=== PATIENT | female | born 1975 | race American Indian/Alaskan Native ===

== ENCOUNTER 2017-04-28 18:44 | Emergency (ER) | payer OTHER ==
[~2017-04-28] VITALS: Ht 154.9 cm; Wt 72.6 kg
[~2017-04-28 18:44] MED LIST: AMLODIPINE BESY10 MG PO; BUPROPION XL150 MG PO; HYDROCHLOROTH12.5 MG PO; HYDROCODON-ACE1 EA10 PO; LOSARTAN POTASS25 MG PO; PERCOCET 7.5-31 EACH; PROPRANOLOL HCL20 MG PO
[2017-04-28] MEDS ORDERED: CELEXA20 MG PO (19:43)
== END 2017-04-28 20:46 | disposition home or self-care (01) ==
LOC: ED 18:44
DX: R51 Headache (principal); I10 Essential (primary) hypertension; Z98.51 Tubal ligation status; Z79.899 Other long term (current) drug therapy
CPT/HCPCS: 96374; 96375; 99282; J1200; J1885; J2765

== ENCOUNTER 2017-09-14 12:08 | Emergency (ER) | payer OTHER ==
[~2017-09-14] VITALS: Ht 154.9 cm; Wt 72.6 kg
[~2017-09-14 12:08] MED LIST changes: +CELEXA20 MG PO
[2017-09-14] MEDS ORDERED: NORCO 10-325 T1 EACH PO (14:09)
--- NOTE | 2017-09-14 19:34 | EKG ---
[facility] [address] [facility] [place] [address] Signed Normal sinus rhythm Normal ECG No previous ECGs available Confirmed by ELIS SEARS MD ([id number]) on 09/14/2017 7:33:53 PM Electronically Signed By: ELIS SEARS MD 09/14/17 1934 PATIENT NAME: JAQUELIN BUCKLEY CHLOÉ Electrocardiogram DATE OF : 79 PHYSICIAN: ELIS SEARS MD REPORT #: [id number] REPORT IS CONFIDENTIAL AND NOT TO BE RELEASED WITHOUT AUTHORIZATION
== END 2017-09-14 14:15 | disposition home or self-care (01) ==
LOC: ED 12:08
DX: S09.90XA Unspecified injury of head, initial encounter (principal); S20.212A Contusion of left front wall of thorax, initial encounter; S20.211A Contusion of right front wall of thorax, initial encounter; I10 Essential (primary) hypertension; G43.909 Migraine, unspecified, not intractable, without status migrainosus; Z79.899 Other long term (current) drug therapy; W22.8XXA Striking against or struck by other objects, initial encounter
CPT/HCPCS: 36415; 70450; 70486; 71111; 80048; 81001; 84703; 85025; 93005; 93010; 99284

== ENCOUNTER 2018-05-18 07:58 | Emergency (ER) | payer OTHER ==
[~2018-05-18] VITALS: Ht 154.9 cm; Wt 72.6 kg
--- OUTSIDE RECORDS SUMMARY | ~2018-05-18 | XMS | Encounter Summary ---
Demographics + + + | Address | [address] [place] [address] | | | [place] [address] | + + + | Home Phone | | + + + | Preferred Language | Unknown | + + + | Marital Status | | + + + | Gnosticist Affiliation | Unknown | + + + | Race | Unknown | + + + | Ethnic Group | Unknown | + + + Author + + + | Author | [facility] | | | and [place] | + + + | Organization | [facility] | | | and [place] | [...] Team Providers + +------+ + | Care Investment Advisor Name | Role | Phone | + +------+ + | Jed Pepper DO | PCP | | + +------+ + Reason for Visit + + + | Reason | Comments | + + + | Medication Question | | + + + Encounter Details +--------+ + + + + | Date | Type | Department | Care Team | Description | +--------+ + + + + | 05/01/ | Telephone | [facility] [place] | Darinel[place]amila, | Medication Question | | 2017 | | [address]YSIATRY [address] | [address] Peck [address] | | | | | [place], | [address] [place] | | | | | [place] [address] | [place] [address] | | | | | [phone] | [phone] | | | | | | | [...] on file | | + + + as of this encounter Plan of Treatment +--------+ + + + + | Date | Type | Specialty | Care Team | Description | +--------+ + + + + | 05/20/ | Appointment | Radiology | Bogdanowicz, | | | 2017 | | | [address] | | | | | | [address] [place] | | | | | | [place] [address] | | | | | | [phone] | | | | | | | | | | | | Media ExecutiveTami | | +--------+ + + + + as of this encounter Visit Diagnoses Not on filein this encounter"
--- OUTSIDE RECORDS SUMMARY | ~2018-05-18 | XMS | Encounter Summary ---
Demographics + + + | Address | [address] [place] [address] | | | [place] [address] | + + + | Home Phone | | + + + | Preferred Language | Unknown | + + + | Marital Status | | + + + | Anabaptist Affiliation | Unknown | + + + | Race | Unknown | + + + | Ethnic Group | Unknown | + + + Author + + + | Author | [facility] | | | and [place] | + + + | Organization | [facility] | | | and [place] [...] Team Providers + +------+ + | Care Weigher Alloy Name | Role | Phone | + +------+ + | Jed Pepper DO | PCP | | + +------+ + Encounter Details +--------+ + + + + | Date | Type | Department | Care Team | Description | +--------+ + + + + | 03/29/ | Abstract | [facility] [place] | Serge Auguste MD | Minor depressive | | 2018 | | OTOLARYNGOLOGY [address] | [address] [place] | disorder; Benign | | | | [address] | [address] [place], | essential | | | | [place], [place] | [place] [address] | hypertension; | | | | [address] | [phone] | Anxiety; Post | | | | [phone] | | traumatic stress | | | | | | disorder; | | | | | | Temporomandibular | | | | | | joint disorder; | | | | | | Gastroesophageal | | | | | | reflux disease, | | | | | | esophagitis presence | | | | | | not specified; | | | | | | Primary | | | | | | hypertriglyceridemia | | | | | | ; Migraine variant | | | | | | with headache; Sore | | | | | | throat, chronic; | | | | | | Dermatitis; Breast | | | | | | lump on right side | | | | | | at 7 o'clock | | | | | | position; Abdominal | | | | | | pain, unspecified | | | | | | abdominal location; | | | | | | Anemia, unspecified | | | | | | type | +--------+ + + + + Social History + +-------+ +--------+------+ | Tobacco Use | Types | Packs/Day | Years | Date | | | | | Used | | + +-------+ +--------+------+ | Never Assessed | | | | | + +-------+ [...] + + + as of this encounter Last Filed Vital Signs + + + + | Vital Sign | Reading | Time Taken | + + + + | Blood Pressure | 120/81 | 03/29/20181108 PDT | + + + + | Pulse | 85 | 03/29/20181108 PDT | + + + + | Temperature | 36.7 C (98 F) | 03/29/20181108 PDT | + + + + | Respiratory Rate | 16 | 03/29/20181108 PDT | + + + + | Oxygen Saturation | 99% | 03/29/20181108 PDT | + + + + | Inhaled Oxygen | - | - | | Concentration | | | + + + + | Weight | 75.9 kg (167 lb 5.6 | 03/29/20181108 PDT | | | oz) | | + + + + | Height | 154.9 cm (5' 1") | 03/29/20181108 PDT | + + + + | Body Mass Index | 31.62 | 03/29/20181108 PDT | + + + + in this encounter Plan of Treatment +--------+ + + + + | Date | Type | Specialty | Care Team | Description | +--------+ + + + + | 05/20/ | Appointment | Radiology | German, | | | 2017 | | | [address] | | | | | | [address] [place] | | | | | | [place] [address] | | | | | | [phone] | | | | | | | | | | | | Oil ExtractorTami | | +--------+ + + + + as of this encounter Visit Diagnoses + + | Diagnosis | + + | Minor depressive disorder | + + | Depressive disorder, not elsewhere classified | + + | Benign essential hypertension | + + | Essential hypertension, benign | + + | Anxiety | + + | Anxiety state, unspecified | + + | Post traumatic stress disorder | + + | Posttraumatic stress disorder | + + | Temporomandibular joint disorder | + + | Temporomandibular joint disorders, unspecified | + + | Gastroesophageal reflux disease, esophagitis presence not specified | + + | Primary hypertriglyceridemia | + + | Pure hyperglyceridemia | + + | Migraine variant with headache | + + | Sore throat, chronic | + + | Chronic pharyngitis | + + | Dermatitis | + + | Contact dermatitis and other eczema, due to unspecified cause | + + | Breast lump on right side at 7 o'clock position | + + | Lump or mass in breast | + + | Abdominal pain, unspecified abdominal location | + + | Anemia, unspecified type | + + | Menstrual disorder | + + | Unspecified disorder of menstruation and other abnormal bleeding from female genital | | tract | + + | Perforation of right tympanic membrane | + + | Perforation of tympanic membrane, unspecified | + +
--- OUTSIDE RECORDS SUMMARY | ~2018-05-18 | XMS | Encounter Summary ---
Demographics + + + | Address | [address] [place] [address] | | | [place] [address] | + + + | Home Phone | | + + + | Preferred Language | Unknown | + + + | Marital Status | | + + + | Jew Affiliation | Unknown | + + + | Race | Unknown | + + + | Ethnic Group | Unknown | + + + Author + + + | Author | [facility] | | | and [place] | + + + | Organization | [facility] | | | and [place] [...] Team Providers + +------+ + | Care Freight Broker Name | Role | Phone | + +------+ + | Jed Pepper DO | PCP | | + +------+ + Encounter Details +--------+ + + + + | Date | Type | Department | Care Team | Description | +--------+ + + + + | 04/24/ | Ancillary | [facility] | Provider, | | | 2018 | Orders | [facility] | MD [address] | | | | | IMAGING | [place] | | | | | [phone] | [place] [address] | | +--------+ + + + + [...] [address] | | | | | | [address] | | | | | | [place] [address] | | | | | | [phone] | | | | | | | | | | | | Internal Audit DirectorTami | | +--------+ + + + + as of this encounter Results MRI Lumbar Spine wo Contrast (02/25/2018 1205) + + + | Narrative | Performed At | + + + | External films for comparison only | [facility] | | | | | No results will be in the chart. | | + + + + +---------+ + + | Performing | Address | City/State/Zipcode | Phone Number | | Organization | | | | + +---------+ + + | [facility] | | | | + +---------+ + + in this encounter Visit Diagnoses Not on filein this encounter"
--- OUTSIDE RECORDS SUMMARY | ~2018-05-18 | XMS | Encounter Summary ---
Demographics + + + | Address | [address] [place] [address] | | | [place] [address] | + + + | Home Phone | | + + + | Preferred Language | Unknown | + + + | Marital Status | | + + + | Lutheran Affiliation | Unknown | + + + | Race | Unknown | + + + | Ethnic Group | Unknown | + + + Author + + + | Author | [facility] | | | and [place] | + + + | Organization | [facility] | | | and [place] [...] Team Providers + +------+ + | Care Linux System Admin Name | Role | Phone | + +------+ + | Jed Pepper DO | PCP | | + +------+ + Encounter Details +--------+ + + + + | Date | Type | Department | Care Team | Description | +--------+ + + + + | 03/28/ | Abstract | [facility] | [place], | | | 2017 | | [address]YSIATRY [address] | [address] | | | | | [place], | [address] [place] | | | | | [place] [address] | [place] [address] | | | | | [phone] | [phone] | | | | | | | [...] | | | | | [address] [place] | | | | | | [place] [address] | | | | | | [phone] | | | | | | | | | | | | Economic Development DirectorTami | | +--------+ + + + + as of this encounter Visit Diagnoses Not on filein this encounter"
--- OUTSIDE RECORDS SUMMARY | ~2018-05-18 | XMS | Encounter Summary ---
Demographics + + + | Address | [address] [place] [address] | | | [place] [address] | + + + | Home Phone | | + + + | Preferred Language | Unknown | + + + | Marital Status | | + + + | Christian Affiliation | Unknown | + + + | Race | Unknown | + + + | Ethnic Group | Unknown | + + + Author + + + | Author | [facility] | | | and [place] | + + + | Organization | [facility] | | | and [place] [...] Team Providers + +------+ + | Care Eyeglass Maker Name | Role | Phone | + +------+ + | Jed Pepper DO | PCP | | + +------+ + Reason for Visit + + + | Reason | Comments | + + + | Back Pain | | + + + Evaluate & Treat (Routine) +--------+--------+ + + + + | Status | Reason | Specialty | Diagnoses / | Referred By | Referred To | | | | | Procedures | Contact | Contact | +--------+--------+ + + + + | Closed | | Physical | Diagnoses | | Zierenberg, | | | | Medicine and | Low back | Clippinger, | Jesse Sheldon MD | | | | Rehabilitatio | pain | Sree Beebe MD | [address] | | | | n | | [address] | [address] [place] | | | | | | [address] | [place], [place] | | | | | | WAY | [address] Phone: | | | | | | [place], | [phone] | | | | | | [place] [address] | Fax: | | | | | | Phone: | [phone] | | | | | | [phone] | | | | | | | Fax: | | | | | | | [phone] | | +--------+--------+ + + + + Encounter Details +--------+---------+ + + + | Date | Type | Department | Care Team | Description | +--------+---------+ + + + | 04/01/ | Office | [facility] | German, | Chronic bilateral | | 2018 | Visit | PHYSIATRY [address] | ANUSHKA Peck [address] | low back pain | | | | [place], | [address] [place] | without sciatica | | | | [place] [address] | [place] [address] | (Primary Dx); DDD | | | | [phone] | [phone] | (degenerative disc | | | | | | disease), lumbar - | | | | | | L5/S1; Facet | | | | | | arthritis of lumbar | | | | | | region ([facility]) | +--------+---------+ + + + Social History [...] + + + | Blood Pressure | 138/92 | 04/01/2018 1258 PDT | + + + + | Pulse | 68 | 04/01/20181257 PDT | + + + + | [...] Weight | 75.8 kg (167 lb) | 04/01/20181257 PDT | + + + + | Height | 154.9 cm (5' 1") | 04/01/20181257 PDT | + + + + | Body Mass Index | 31.55 | 04/01/2018 1258 PDT | + + + + in this encounter Instructions Patient Instructions - Liv Porter PA-C - 04/01/2018 1300 PDT1) Daily AM anti-infl ammatory 2) Facet steroid injection at L5/S1 3) Lumbar xray in flexion/extension 4) Continue with PT exercises Degenerative Disc Disease (DDD): L5-S1 Degenerative Disc Disease is a term used to describe normal wear and tear of the spine pauline t occurs with age. The discs between the vertebras (bones) are made of fluid and cartilage that allows you to flex, bend, and twist, they also absorbs shock. Throughout the years, th martin discs can become flattened and the space between your vertebras become closer together. This can cause disc herniation, spinal stenosis, and arthritis, along with other complicati ons. Facet Pain: The facet joint is located when the vertebrae (bones of the spine) connect to each other. Pain occurs with extension and rotation of the spine (bending backwards and rotating), bend ing over and lifting a heavy load, standing, first things in the morning. Images of the spi ne show facet arthritis, fluid in the facet joints. Treatment included rest, anti-inflammat ories, physical therapy focusing on core strengthening, facet steroid injections. Steroids are a very strong anti-inflammatory, this helps reduce pain by reducing swelling. Complications of steroids are bleeding, infection, and an increase of blood sugars if you are diabetic. 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 Facet joints are located when the vertebrae (bones of the spine) connect to each other. Typically these joints can have arthritis in this and give a person centralized low back pain. The procedure takes about 20 minutes. You lie on your b ack and x-rays are taken. Once the region is localized, it is numbed and then injected with steroid. Follow-up at the hospital thirty minutes before [...] of the procedure you must provide a putaway driver to take you home. For all procedur es it is recommended that someone else drive you home. in this encounter Progress Notes Liv Porter PA-C - 04/01/2018 1300 PDTFormatting of this note may be different fro m the original. Liv Porter PA-C [address] [facility], [address] [place], [place] [address] FAX: PHYSICAL MEDICINE AND REHABILITATION H&P CHIEF COMPLAINT: Chief Complaint Patient presents with Back Pain HISTORY OF PRESENT ILLNESS: The patient is a 42 y.o. female being seen today for complaint s of low back pain that began over 3 years ago from no know injury or trauma. Since the symptoms began, she has noticed that symptoms have been worsening. She describes the pain as a aching, pulsating, shooting and throbbing feeling. She rates the pain as sever e. Her symptoms worsen with standing, sitting, walking, running, kneeling, bending, twisting , she feels her symptoms first thing in the morning and it just gets worse throughout the da y. Her symptoms improve with nothing, she is taking NSAIDS, muscle relaxers all which do no t help. The patient also describes leg symptoms [...] these complaints have included physical therapy at [facility], use of NSAI Ds, muscle relaxer's, narcotics, chiropractic therapy. Patient's medications, allergies, past medical, surgical, social and family histories were reviewed and updated as appropriate. PAST MEDICAL HISTORY: Past Medical History: Diagnosis Date Abdominal pain Acute otitis media, right Anemia Anxiety Asymptomatic gallstones Benign essential hypertension Chronic sore throat DDD (degenerative disc disease), lumbar - L5/S1 04/01/2018 Dermatitis Eczema Facet arthritis of lumbar region (HCC) 04/01/2018 GERD (gastroesophageal reflux disease) Low back pain Low back pain Lump of breast, right Menstrual disorder Migraine variant with headache Minor depressive disorder Perforation of right tympanic membrane Primary hypertriglyceridemia PTSD (post-traumatic stress disorder) Seasonal allergies TMJ (temporomandibular joint disorder) PAST SURGICAL HISTORY: History reviewed. No pertinent surgical history. CURRENT MEDICATIONS: Current Outpatient Prescriptions Medication Sig Dispense Refill amLODIPine (NORVASC) 10 MG tablet Take 10 mg by mouth Daily. citalopram (CELEXA) 10 mg tablet Take 30 mg by mouth Daily. cyclobenzaprine (FLEXERIL) 10 mg tablet Take 10 mg by mouth 3 times daily as needed for Other (Back pain). hydroCHLOROthiazide (MICROZIDE) 12.5 MG capsule Take 12.5 mg by mouth every morning. ibuprofen (ADVIL,MOTRIN) 800 MG tablet Take 800 mg by mouth as needed. loratadine (CLARITIN) 10 mg tablet Take 10 mg by mouth Daily as needed for Allergies. losartan (COZAAR) 50 mg tablet Take 50 mg by mouth Daily. meloxicam (MOBIC) 7.5 mg tablet Take 1 tablet by mouth Daily. Do not take with other NS AIDS 60 tablet 5 dicejasedkmz-fvsu-vxkoifpj-folic acid (THERAPEUTIC-M) TABS Take 1 tablet by mouth Daily . naproxen (NAPROSYN) 500 mg tablet Take 500 mg by mouth 2 times daily (with breakfast & dinner). omeprazole (PRILOSEC) 20 mg capsule Take 20 mg by mouth every morning (before breakfast ). ondansetron (ZOFRAN ODT) 8 mg disintegrating tablet Take 8 mg by mouth every 8 hours as needed for Nausea. propranolol (INDERAL) 40 mg tablet Take 40 mg by mouth 2 times daily. SUMAtriptan (IMITREX) 100 mg tablet Take 100 mg by mouth as needed for Migraine. No current facility-administered medications for this visit. ALLERGIES: Allergies Allergen Reactions Ketorolac Hives SOCIAL HISTORY: The patient reports that she has never smoked. She has never used smokeless tobacco. She r eports that she does not drink alcohol or use drugs. FAMILY HISTORY: Family History Problem Relation Age of Onset No Known Problems Daughter No Known Problems Child No Known Problems Child REVIEW OF SYSTEMS: GENERALLY: No fever, chills, + night sweats, no weight gain, no weight loss, + anemia, + fatigue. EYES: + eye problems, no impaired sight, + eye glasses/contacts, no eye injury, no double vision, no transient blindness. EARS, NOSE, THROAT and MOUTH: No change in sense taste/smell, + hearing difficulty, no rin ging in ears, + drainage from ears, + ear injury, + dizziness, no voice change, no difficult y swallowing, + snoring, no sleep apnea/CPAP, + sinus trouble, + dental work. NEUROMUSCULAR: No numbness/pain of arms, no numbness/pain of legs, + awake with numbness/p ain, + weakness, no muscle aching, no coordination difficulty, no change in walk, no head in jury, no neck injury, no back injury, no pain in neck, + pain in back, no stroke, no faintin g spells, no loss of consciousness, no tremor/shaking, no seizures, + headaches, + migraines , no memory loss, no speech difficulty, no confusion, no numbness of face. PSYCHIATRIC: + depression, + difficulty sleeping, + anxiety, no bipolar disorder. CARDIOVASCULAR/PULMONARY: No heart attack, no heart murmur, no fluttering heart, no shortn ess of breath, no cough, no Tuberculosis, + chest pain, no swelling ankles, no bloody coughi ng, no asthma, no COPD/emphysema. GASTROINTESTINAL: No bowel disease, + nausea/vomiting, no rectal bleeding/hemorroids, no c onstipation, no fecal/stool incontinence, no liver/gallbladder disease, + abdominal pain. KIDNEY DISEASE: No frequent urination, no painful/difficult with urination, no urinary inco ntinence, no bladder problems, no impotence, no irregular period, no vaginal discharge. ENDOCRINE: No diabetes, no thyroid disease, no osteoporosis/osteopenia, no drainage from br easts. INTEGUMENTARY/SKIN: + lump in breasts, no skin disease or skin changes, no rash/itch. HEMATOLOGIC: + enlarged lymph nodes, no ease or unusual bleeding, no cancer. RHEUMATOLOGIC: No joint pain/arthritis, no Rheumatoid Arthritis PHYSICAL EXAMINATION: Vitals: 04/01/18 1258 BP: (!) 138/92 Pulse: 68 PainSc: 8 PainLoc: Back Body mass index is 31.55 kg/m. GENERAL: [...] has no apparent deficits with short or chcf memory. She has appropriate fund of knowledge Cranial nerves 2-12 appear grossly intact. Sensory exam does not show diminished sensation to light touch in the lower extremities. REFLEX: RIGHT LEFT PATELLAR 2+ 2+ ACHILLES 2+ 2+ MUSCULOSKELETAL There is no tenderness in the [...] line tenderness in the knees or ankles. RADIOGRAPHIC REVIEW: The patient's imaging was reviewed in detail with the patient today during the visit. Lumb ar MRI from 2018 shows lumbar degenerative disc disease severe at L5-S1 with bilateral for aminal stenosis and facet arthritis. ASSESSMENT: 1. Chronic bilateral low back pain without sciatica 2. DDD (degenerative disc disease), lumbar - L5/S1 3. Facet arthritis of lumbar region (HCC) PLAN: 1. 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 Unfortunately she jose luis nues to have significant discomfort. It appears to me that the pain is primarily coming fro m the L5/S1 DDD. I did feel that she would be a good candidate for interventional procedure s and I offered bilateral L5/S1 facet steroid injection. 2. I educated her on the importance of a daily anti-inflammatory. I would like to see her start weakening morning anti-inflammatory such as meloxicam, I did write a prescription for meloxicam 7.5 mg per her to start taking daily. 3. We discussed the importance of continuing with home exercise program from physical therapy teacher apy, stretching of the lower legs along with core strengthening and postural control. 4. We discussed surgical intervention and at her age we would like to see her prolong surg boubacar as long as possible. 5. I would like to see her follow up 3 weeks after the steroid injection. It may be that an epidural injection at the L5-S1 area is needed. ELECTRONICALLY SIGNED BY: Liv Porter PA-C, 04/01/2018 CC: Danni Pepper this encounter Plan of Treatment +--------+ + + + + | Date | Type | Specialty | Care Team | Description | +--------+ + + + + | 05/20/ | Appointment | Radiology | German, | | | 2017 | | | ANUSHKA Peck [address] | | | | | | [address] | | | | | | [place] [address] | | | | | | [phone] | | | | | | | | | | | | Medical File ClerkTami | | +--------+ + + + + + +--------+ + + | Name | Priori | Associated Diagnoses | Order Schedule | | | ty | | | + +--------+ + + | XR Lumbar Spine 4 + Vw | Routin | Chronic bilateral | Expected: | | | e | low back pain | 04/01/2018, Expires: | | | | without sciatica | 04/02/2019 | | | | DDD (degenerative | | | | | disc disease), | | | | | lumbar - L5/S1 | | | | | Facet arthritis of | | | | | lumbar region (HCC) | | + +--------+ + + | FL Facet Injection Lumbar Sacral | Routin | Chronic bilateral | Expected: | | | e | low back pain | 04/01/2018, Expires: | | | | without sciatica | 04/02/2019 | | | | DDD (degenerative | | | | | disc disease), | | | | | lumbar - L5/S1 | | | | | Facet arthritis of | | | | | lumbar region (HCC) | | + +--------+ + + as of this encounter Visit Diagnoses + + | Diagnosis | + + | Chronic bilateral low back pain without sciatica - Primary | + + | DDD (degenerative disc disease), lumbar - L5/S1 | + + | Degeneration of lumbar or lumbosacral intervertebral disc | + + | Facet arthritis of lumbar region (HCC) | + + | Lumbosacral spondylosis without myelopathy | + +
--- OUTSIDE RECORDS SUMMARY | ~2018-05-18 | XMS | Clinical Summary ---
Demographics + + + | Address | [address] [place] [address] | | | [place] [address] | + + + | Home Phone | | + + + | Preferred Language | Unknown | + + + | Marital Status | | + + + | Restorationism Affiliation | Unknown | + + + | Race | Unknown | + + + | Ethnic Group | Unknown | + + + Author + + + | Author | [facility] | | | and [place] | + + + | Organization | [facility] | | | and [place] | + + + | Address | Unknown | + + + | Phone | Unavailable | + + + Support + + +---------+ + | Name | Relationship | Address | Phone | + + +---------+ + | Taye Buckley | ECON | Unknown | | + + +---------+ + Care Team Providers + +------+ + | Care Director Of Diagnostic Imaging Name | Role | Phone | + +------+ + | Jed Pepper DO | PP | | + +------+ + Allergies + + + +--------+ + | Active Allergy | Reactions | Severity | Noted | Comments | | | | | Date | | + + + +--------+ + | Ketorolac | Hives | Medium | | | + + + +--------+ + Current Medications + + +--------+---------+------+------+-------+ | Prescription | Sig. | Disp. | Refills | Star | End | Statu | | | | | | t | Date | s | | | | | | Date | | | + + +--------+---------+------+------+-------+ | amLODIPine | Take 10 mg by mouth | | | | | Activ | | (NORVASC) 10 MG | Daily. | | | | | e | | tablet | | | | | | | + + +--------+---------+------+------+-------+ | citalopram | Take 30 mg by mouth | | | | | Activ | | (CELEXA) 10 mg | Daily. | | | | | e | | tablet | | | | | | | + + +--------+---------+------+------+-------+ | cyclobenzaprine | Take 10 mg by mouth | | | | | Activ | | (FLEXERIL) 10 mg | 3 times daily as | | | | | e | | tablet | needed for Other | | | | | | | | (Back pain). | | | | | | + + +--------+---------+------+------+-------+ | | Take 12.5 mg by | | | | | Activ | | hydroCHLOROthiazide | mouth every morning. | | | | | e | | (MICROZIDE) 12.5 MG | | | | | | | | capsule | | | | | | | + + +--------+---------+------+------+-------+ | loratadine | Take 10 mg by mouth | | | | | Activ | | (CLARITIN) 10 mg | Daily as needed for | | | | | e | | tablet | Allergies. | | | | | | + + +--------+---------+------+------+-------+ | losartan (COZAAR) | Take 50 mg by mouth | | | | | Activ | | 50 mg tablet | Daily. | | | | | e | + + +--------+---------+------+------+-------+ | | Take 1 tablet by | | | | | Activ | | jknhzanmrsui-jrlh-qi | mouth Daily. | | | | | e | | nerals-folic acid | | | | | | | | (THERAPEUTIC-M) TABS | | | | | | | + + +--------+---------+------+------+-------+ | naproxen | Take 500 mg by mouth | | | | | Activ | | (NAPROSYN) 500 mg | 2 times daily (with | | | | | e | | tablet | breakfast & | | | | | | | | dinner). | | | | | | + + +--------+---------+------+------+-------+ | omeprazole | Take 20 mg by mouth | | | | | Activ | | (PRILOSEC) 20 mg | every morning | | | | | e | | capsule | (before breakfast). | | | | | | + + +--------+---------+------+------+-------+ | ondansetron | Take 8 mg by mouth | | | | | Activ | | (ZOFRAN ODT) 8 mg | every 8 hours as | | | | | e | | disintegrating | needed for Nausea. | | | | | | | tablet | | | | | | | + + +--------+---------+------+------+-------+ | propranolol | Take 40 mg by mouth | | | | | Activ | | (INDERAL) 40 mg | 2 times daily. | | | | | e | | tablet | | | | | | | + + +--------+---------+------+------+-------+ | SUMAtriptan | Take 100 mg by mouth | | | | | Activ | | (IMITREX) 100 mg | as needed for | | | | | e | | tablet | Migraine. | | | | | | + + +--------+---------+------+------+-------+ | ibuprofen | Take 800 mg by mouth | | | 07/0 | | Activ | | (ADVIL,MOTRIN) 800 | as needed. | | | 3/20 | | e | | MG tablet | | | | 18 | | | + + +--------+---------+------+------+-------+ | meloxicam (MOBIC) | Take 1 tablet by | 60 | 5 | 03/05 | | Activ | | 7.5 mg tablet | mouth Daily. Do not | tablet | | 020 | | e | | | take with other | | | 18 | | | | | NSAIDS | | | | | | + + +--------+---------+------+------+-------+ Active Problems + + + | Problem | Noted Date | + + + | DDD (degenerative disc disease), lumbar - L5/S1 | 04/01/2018 | + + + | Facet arthritis of lumbar region (HCC) | 04/01/2018 | + + + | Minor depressive disorder | 03/29/2018 | + + + | Benign essential hypertension | 03/29/2018 | + + + | Anxiety | 03/29/2018 | + + + | Post traumatic stress disorder | 03/29/2018 | + + + | Temporomandibular joint disorder | 03/29/2018 | + + + | Gastroesophageal reflux disease | 03/29/2018 | + + + | Primary hypertriglyceridemia | 03/29/2018 | + + + | Migraine variant with headache | 03/29/2018 | + + + | Sore throat, chronic | 03/29/2018 | + + + | Dermatitis | 03/29/2018 | + + + | Breast lump on right side at 7 o'clock position | 03/29/2018 | + + + | Seasonal allergies | 03/29/2018 | + + + | Abdominal pain | 03/29/2018 | + + + | Anemia | 03/29/2018 | + + + | Gallstone | 03/29/2018 | + + + | Menstrual disorder | 03/29/2018 | + + + | Low back pain | 03/29/2018 | + + + | Acute serous otitis media | 03/29/2018 | + + + | Perforation of right tympanic membrane | 03/29/2018 | + + + Encounters +--------+ + + + + | Date | Type | Specialty | Care Team | Description | +--------+ + + + + | 05/01/ | Telephone | | German, | Medication Question | | 2017 | | | ANUSHKA Peck | | +--------+ + + + + | 04/29/ | Telephone | | German, | Results, Imaging | | 2017 | | | ANUSHKA Peck | | +--------+ + + + + | 04/24/ | Ancillary | | Provider, | | | 2017 | Orders | | MD Thomas | | +--------+ + + + + | 04/24/ | Procedure | | | | | 2018 | Pass | | | | +--------+ + + + + | 04/16/ | Ancillary | | Provider, | | | 2018 | Orders | | Historical, MD | | +--------+ + + + + | 04/11/ | Imaging | | Provider, | | | 2017 | Exam | | Historical, MD | | +--------+ + + + + | 04/09/ | Telephone | | German, | Diagnostic Order | | 2017 | | | ANUSHKA Peck | (xray) | +--------+ + + + + 04/01/ | Office | | German, | Chronic bilateral | | 2017 | Visit | | ANUSHKA Peck | low back pain | | | | | | without sciatica | | | | | | (Primary Dx); DDD | | | | | | (degenerative disc | | | | | | disease), lumbar - | | | | | | L5/S1; Facet | | | | | | arthritis of lumbar | | | | | | region (HCC) | +--------+ + + + + | 03/29/ | Telephone | | Serge Auguste MD | Appointment | | 2017 | | | | | +--------+ + + + + | 03/29/ | Abstract | | Serge Auguste MD | Minor depressive | | 2018 | | | | disorder; Benign | | | | | | essential | | | | | | hypertension; | | | | | | Anxiety; Post | | | | | | traumatic stress | | | [...] type | +--------+ + + + + | 03/28/ | Abstract | | German, | | | 2017 | | | ANUSHKA Peck | | +--------+ + + + + | 02/25/ | Imaging | | Provider, | | | 2018 | Exam | | Historical, MD | | +--------+ + + + + from Last 3 Months Family History + + + + + | Medical History | Relation | Name | Comments | + + + + + | No Known Problems | Child | | | + + + + + | No Known Problems | Child | | | + + + + + | No Known Problems | Daughter | Lili | | + + + + + + + +--------+ + | Relation | Name | Status | Comments | + + +--------+ + | Child | | | | + + +--------+ + | Child | | | | + + +--------+ + | Daughter | Lili | Alive | | + + +--------+ + | Father | Wilmar | | | | | [place] | | | + + +--------+ + | Mother | Brianna | | | | | [place] | | | + + +--------+ + Social History + +-------+ +--------+------+ | [...] on file | | + + + Last Filed Vital Signs + + + + | Vital Sign | Reading | Time Taken | + + + + | Blood Pressure | 138/92 | 04/01/20181257 PDT | + + + [...] | Body Mass Index | 31.55 | 04/01/20181257 PDT | + + + + Plan of Treatment +--------+ + + + + | Date | Type | Specialty | Care Team | Description | +--------+ + + + + | 05/20/ | Appointment | | German, | | | 2017 | | | ANUSHKA Peck [address] | | | | | | [address] | | | | | | [place] [address] | | | | | | [phone] | | | | | | | | | | | | Rubber Block Layer, [facility] | | +--------+ + + + + + + + + + | Health Maintenance | Due Date | Last Done | Comments | + + + + + | Vaccine: | | | | | Dtap/Tdap/Td (1 - | 6 | | | | Tdap) | | | | + + + + + | Cervical Cancer | | | | | Screening (Pap) | 7 | | | + + + + + | Vaccine: Influenza | | | | | (#1) | 8 | | | + + + + + Procedures + +--------+ + + + | Procedure Name | Priori | Date/Time | Associated Diagnosis | Comments | | | ty | | | | + +--------+ + + + | XR LUMBAR SPINE | Routin | 04/11/2018 | | Results for this | | COMPLETE INCLUDING | e | 1015 PDT | | procedure are in the | | BENDING 6 + VW | | | | results section. | + +--------+ + + + | IMAGING REPORT - | | 04/11/2018 | | Results for this | | EXTERNAL SCAN | | 0000 PDT | | procedure are in the | | | | | | results section. | + +--------+ + + + | MRI LUMBAR SPINE WO | Routin | 02/25/2018 | | Results for this | | CONTRAST | e | 1205 PDT | | procedure are in the | | | | | | results section. | + +--------+ + + + from Last 3 Months Results XR Lumbar Spine Complete With Bending 6+ (04/11/2018 1015) + + + | Narrative | Performed [...] | | | + +---------+ + + IMAGING REPORT - EXTERNAL SCAN (04/11/2018) + + + | Narrative | Performed At | + + + | Ordered by an | | | unspecified provider. | | + + + MRI Lumbar Spine wo Contrast (02/25/2018 1205) [...] | | | + +---------+ + + from Last 3 Months Insurance +-------+--------+ +------+-------+---------+ | Payer | Benefi | Subscriber | Type | Phone | Address | | | t Plan | ID | | | | | | / | | | | | | | Group | | | | | +-------+--------+ +------+-------+---------+ | [employer] | [employer] | [id number] | PPO | | | | | [employer] | | | | | | | | | | | | | | HEALTH | | | | | | | CARE | | | | | | | PPO | | | | | +-------+--------+ +------+-------+---------+ + +--------+ +--------+ + + | Guarantor Name | Accoun | Relation to | Date | Phone | Billing Address | | | t Type | Patient | of | | | | | | | | | | + +--------+ +--------+ + + | KAY BUCKLEY CHLOÉ | Person | Self [birth year] Home: | [phone] | | | al/Fam | | [phone] | [phone] [place] | | | maureen | | [phone] | + +--------+ +--------+ + +
--- OUTSIDE RECORDS SUMMARY | ~2018-05-18 | XMS | Encounter Summary ---
Demographics + + + | Address | [address] [place] [address] | | | [place] [address] | + + + | Home Phone | | + + + | Preferred Language | Unknown | + + + | Marital Status | | + + + | Sikh Affiliation | Unknown | + + + | Race | Unknown | + + + | Ethnic Group | Unknown | + + + Author + + + | Author | [facility] | | | and [place] | + + + | Organization | [facility] | | | and [place] [...] Team Providers + +------+ + | Care Junior Technical Writer Name | Role | Phone | + +------+ + | Jed Pepper DO | PCP | | + +------+ + Encounter Details +--------+ + + + + | Date | Type | Department | Care Team | Description | +--------+ + + + + | 04/16/ | Ancillary | [facility] | Provider, | | | 2018 | Orders | MED CTR EXTERNAL | MD Thomas [address] | | | | | IMAGING | [place] | | | | | [phone] | [place] [address] | | +--------+ + + + + [...] | | | | | [place] [address] | | | | | | [phone] | | | | | | | | | | | | Superintendent Plant ProtectionTami | | +--------+ + + + + as of this encounter Results XR Lumbar Spine Complete With Bending [...]
--- OUTSIDE RECORDS SUMMARY | ~2018-05-18 | XMS | Encounter Summary ---
Demographics + + + | Address | [address] [place] [address] | | | [place] [address] | + + + | Home Phone | | + + + | Preferred Language | Unknown | + + + | Marital Status | | + + + | Spiritism Affiliation | Unknown | + + + | Race | Unknown | + + + | Ethnic Group | Unknown | + + + Author + + + | Author | [facility] | | | and [place] | + + + | Organization | [facility] | | | and [place] [...] Team Providers + +------+ + | Care Applied Marine Physics Professor Name | Role | Phone | + +------+ + | Jed Pepper DO | PCP | | + +------+ + Encounter Details +--------+ + + + + | Date | Type | Department | Care Team | Description | +--------+ + + + + | 04/24/ | Procedure | [facility] | | | | 2017 | Pass | MED CTR EXTERNAL | | | | | | IMAGING | | | | | | [phone] | | | +--------+ + + + + Social History + +-------+ +--------+------+ | Tobacco Use | Types | Packs/Day | Years | Date | | | | | Used | | + +-------+ +--------+------+ | Never Assessed | | | | | + +-------+ +--------+------+ + + + | Sex Assigned at | Date Recorded | | | | + + + | Not on file | | + + + as of this encounter Plan of Treatment +--------+ + + + + | Date | Type | Specialty | Care Team | Description | +--------+ + + + + | 09/17/ | Appointment | Radiology | [place], | | | 2017 | | | [address] | | | | | | [address] | | | | | | [place] [address] | | | | | | [phone] | | | | | | | | | | | | Wheel And Pinion InspectorTami | | +--------+ + + + + as of this encounter Visit Diagnoses Not on filein this encounter"
--- OUTSIDE RECORDS SUMMARY | ~2018-05-18 | XMS | Encounter Summary ---
Demographics + + + | Address | [address] [place] [address] | | | [place] [address] | + + + | Home Phone | | + + + | Preferred Language | Unknown | + + + | Marital Status | | + + + | Samaritan Affiliation | Unknown | + + + | Race | Unknown | + + + | Ethnic Group | Unknown | + + + Author + + + | Author | [facility] | | | and [place] | + + + | Organization | [facility] | | | and [place] | [...] Team Providers + +------+ + | Care Gas Combustion Engineer Name | Role | Phone | + +------+ + | Jed Pepper DO | PCP | | + +------+ + Reason for Visit + + + | Reason | Comments | + + + | Appointment | | + + + Encounter Details +--------+ + + + + | Date | Type | Department | Care Team | Description | +--------+ + + + + | 03/29/ | Telephone | [facility] [place] | Serge Auguste MD | Appointment | | 2017 | | OTOLARYNGOLOGY [address] | [address] | | | | | [address] | [address] [place], | | | | | [place], [place] | [place] [address] | | | | | [address] | [phone] | | | | | [phone] | | | +--------+ + + + [...] | | | | | [place] [address] | | | | | | [phone] | | | | | | | | | | | | Fermentation Operator, [facility] | | +--------+ + + + + as of this encounter Visit Diagnoses Not on filein this encounter"
--- OUTSIDE RECORDS SUMMARY | ~2018-05-18 | XMS | Encounter Summary ---
Demographics + + + | Address | [address] [place] [address] | | | [place] [address] | + + + | Home Phone | | + + + | Preferred Language | Unknown | + + + | Marital Status | | + + + | Uatsdin Affiliation | Unknown | + + + | Race | Unknown | + + + | Ethnic Group | Unknown | + + + Author + + + | Author | [facility] | | | and [place] | + + + | Organization | [facility] | | | and [place] | [...] Team Providers + +------+ + | Care Photo Editor Name | Role | Phone | + [...] [address] | | | | | [place], | [address] [place] | | | | | [place] [address] | [place] [address] | | | | | [phone] | [phone] | | | | | | | [...] | | | | | [address] [place] | | | | | | [place] [address] | | | | | | [phone] | | | | | | | | | | | | Retirement OfficerTami | | +--------+ + + + + as of this encounter Visit Diagnoses Not on filein this encounter"
--- OUTSIDE RECORDS SUMMARY | ~2018-05-18 | XMS | Encounter Summary ---
Demographics + + + | Address | [address] [place] [address] | | | [place] [address] | + + + | Home Phone | | + + + | Preferred Language | Unknown | + + + | Marital Status | | + + + | Christian Affiliation | Unknown | + + + | Race | Unknown | + + + | Ethnic Group | Unknown | + + + Author + + + | Author | [facility] | | | and [place] | + + + | Organization | [facility] | | | and [place] | [...] Team Providers + +------+ + | Care Grapple Yarder Operator Name | Role | Phone | + +------+ + | Jed Pepper DO | PCP | | + +------+ + Reason for Visit + + + | Reason | Comments | + + + | Diagnostic Order | xray | + + + Encounter Details +--------+ + + + + | Date | Type | Department | Care Team | Description | +--------+ + + + + | 04/09/ | Telephone | [facility] [place] | [place], | Diagnostic Order | | 2017 | | PHYSIATRY [address] | [address] | (xray) | | | | [place], | [address] [place] | | | | | [place] [address] | [place] [address] | | | | | [phone] | [phone] | | | | | | | [...] [place] | | | | | | [place] [address] | | | | | | [phone] | | | | | | | | | | | | Mechanical Maintenance TechnicianTami | | +--------+ + + + + as of this encounter Visit Diagnoses Not on filein this encounter"
--- OUTSIDE RECORDS SUMMARY | ~2018-05-18 | XMS | Encounter Summary ---
Demographics + + + | Address | [address] [place] [address] | | | [place] [address] | + + + | Home Phone | | + + + | Preferred Language | Unknown | + + + | Marital Status | | + + + | Cheondoism Affiliation | Unknown | + + + | Race | Unknown | + + + | Ethnic Group | Unknown | + + + Author + + + | Author | [facility] | | | and [place] | + + + | Organization | [facility] | | | and [place] [...] Team Providers + +------+ + | Care Residential Subcontractor Name | Role | Phone | [...] [address] | | | | | [place], | [address] [place] | | | | | [place] [address] | [place] [address] | | | | | [phone] | [phone] | | | | | | | [...] | | | | | [place] [address] | | | | | | [phone] | | | | | | | | | | | | Color Printer OperatorTami | | +--------+ + + + + as of this encounter Visit Diagnoses Not on filein this encounter"
--- OUTSIDE RECORDS SUMMARY | ~2018-05-18 | XMS | Encounter Summary ---
Demographics + + + | Address | [address] [place] [address] | | | [place] [address] | + + + | Home Phone [...] | Author | [facility] | | | and [place] | + + + | Organization | [facility] | | | and [...] Team Providers + +------+ + | Care Practice Clinician Name | Role | Phone | + +------+ + | Jed Pepper DO | PCP | | + +------+ + Reason for Visit + + + | Reason | Comments | + + + | Results, Imaging | | + + + Encounter Details +--------+ + + + + | Date | Type | Department | Care Team | Description | +--------+ + + + + | 04/29/ | Telephone | [facility] [place] | [place], | Results, Imaging | | 2017 | | PHYSIATRY [address] | [address] Peck [address] | | | | | [place], | [address] [place] | | | | | [place] [address] | [place] [address] | | | | | [phone] | [phone] | | | | | | | [...] | | | | | | [place] [address] | | | | | | [phone] | | | | | | | | | | | | Emergency TechnicianTami | | +--------+ + + + + as of this encounter Visit Diagnoses Not on filein this encounter"
--- OUTSIDE RECORDS SUMMARY | ~2018-05-18 | XMS | Encounter Summary ---
Demographics + + + | Address | [address] [place] [address] | | | [place] [address] | + + + | Home Phone | | + + + | Preferred Language | Unknown | + + + | Marital Status | | + + + | Jainism Affiliation | Unknown | + + + | Race | Unknown | + + + | Ethnic Group | Unknown | + + + Author + + + | Author | [facility] | | | and [place] | + + + | Organization | [facility] | | | and [place] [...] Team Providers + +------+ + | Care Steward/Stewardess Second Class Name | Role | Phone | + +------+ + PCP | Unavailable | + +------+ + Encounter Details +--------+ + + + + | Date | Type | Department | Care Team | Description | +--------+ + + + + | 02/25/ | Imaging | [facility] | Provider, | | | 2018 | Exam | MED CTR EXTERNAL | MD [address] | | | | | IMAGING | [place] | | | | | [phone] | [place] [address] | | +--------+ + + + + [...] [place] | | | | | | [place] [address] | | | | | | [phone] | | | | | | | | | | | | Fisher LineTami | | +--------+ + + + + as of this encounter Procedures + +--------+ [...] section. | + +--------+ + + + in this encounter Results MRI Lumbar Spine wo [...]
--- OUTSIDE RECORDS SUMMARY | ~2018-05-18 | XMS | Encounter Summary ---
Demographics + + + | Address | [address] [place] [address] | | | [place] [address] | + + + | Home Phone | | + + + | Preferred Language | Unknown | + + + | Marital Status | | + + + | Judaism Affiliation | Unknown | + + + | Race | Unknown | + + + | Ethnic Group | Unknown | + + + Author + + + | Author | [facility] | | | and [place] | + + + | Organization | [facility] [...] Team Providers + +------+ + | Care House Painter Helper Name | Role | Phone | + +------+ + | Jed Pepper DO | PCP | | + +------+ + Encounter Details +--------+ + + + + | Date | Type | Department | Care Team | Description | +--------+ + + + + | 04/11/ | Imaging | [facility] | Provider, | | | 2018 | Exam | MED CTR EXTERNAL | [address] | | | | | IMAGING | [place] | | | | | [phone] | [place] [address] | | +--------+ + + + + [...] | | | | | [place] [address] | | | | | | [phone] | | | | | | | | | | | | Construction Millwright Wsbenjamin | | +--------+ + + + + [...] + + + in this encounter Results XR Lumbar Spine Complete [...]
--- OUTSIDE RECORDS SUMMARY | ~2018-05-18 | XMS | Encounter Summary ---
Demographics + + + | Address | [address] [place] [address] | | | [place] [address] | + + + | Home Phone | | + + + | Preferred Language | Unknown | + + + | Marital Status | | + + + | Hoahaoism Affiliation | Unknown | + + + | Race | Unknown | + + + | Ethnic Group | Unknown | + + + Author + + + | Author | [facility] | | | and [place] | + + + | Organization | [facility] | | | and [...] Team Providers + +------+ + | Care Grid Maker Name | Role | Phone | [...] [place] | | | | | [phone] | [place] [address] | | +--------+ + + + + [...] | | | | | [place] [address] | | | | | | [phone] | | | | | | | | | | | | Fleet Dispatch ManagerTami | | +--------+ + + + + [...]
--- OUTSIDE RECORDS SUMMARY | ~2018-05-18 | XMS | Encounter Summary ---
Demographics + + + | Address | [address] [place] [address] | | | [place] [address] | + + + | Home Phone | | + + + | Preferred Language | Unknown | + + + | Marital Status | | + + + | Advent Affiliation | Unknown | + + + | Race | Unknown | + + + | Ethnic Group | Unknown | + + + Author + + + | Author | [facility] | | | and [place] | + + + | Organization | [facility] | | | and [...] Team Providers + +------+ + | Care Urologic Nurse Name | Role | Phone | + [...] [place] | | | | | [phone] | [place] [address] | | +--------+ + + + + [...] | | | | | [place] [address] | | | | | | [phone] | | | | | | | | | | | | Mid Level DeveloperTami | | +--------+ + + + + [...]
--- OUTSIDE RECORDS SUMMARY | ~2018-05-18 | XMS | Clinical Summary ---
Demographics + + + | Address | [address] [place] [address] | | | [place] [address] | + + + | Home Phone | | + + + | Preferred Language | Unknown | + + + | Marital Status | | + + + | Druze Affiliation | Unknown | + + + | Race | Unknown | + + + | Ethnic Group | Unknown | + + + Author + + + | Author | [facility] | | | and [place] | + + + | Organization | [facility] | | | and [...] Team Providers + +------+ + | Care Seasonal Greenery Bundler Name | Role | Phone | + [...] | | | | Activ | | skyetleqtuud-oulu-cy | mouth Daily. | | | | [...] | | | | | [place] [address] | | | | | | [phone] | | | | | | | | | | | | Interior Systems Carpenter, [facility] | | +--------+ + + + [...] +-------+--------+ +------+-------+---------+ | UMR | UMR | [id number] | PPO | | | | | [...] Self | [birth year] | Home: | [address] [facility] | | | al/Fam | | 1975 | [phone] | [place] | | | maureen | | | [phone] | [phone] | + +--------+ +--------+ + +
--- OUTSIDE RECORDS SUMMARY | ~2018-05-18 | XMS | Encounter Summary ---
Demographics + + + | Address | [address] [place] [address] | | | [place] [address] | + + + | Home Phone | | + + + | Preferred Language | Unknown | + + + | Marital Status | | + + + | Pentecostalism Affiliation | Unknown | + + + | Race | Unknown | + + + | Ethnic Group | Unknown | + + + Author + + + | Author | [facility] | | | and [place] | + + + | Organization | [facility] | | | and [...] Team Providers + +------+ + | Care Library Assistant Name | Role | Phone | [...] [place], | essential | | | | [place], [place] | [place] [address] | hypertension; | | | | [address] | [phone] | Anxiety; Post | | | | [phone] | | traumatic stress | | | [...] | | | | | | [place] [address] | | | | | | [phone] | | | | | | | | | | | | Imagery AnalystTami | | +--------+ + + + + [...]
--- OUTSIDE RECORDS SUMMARY | ~2018-05-18 | XMS | Encounter Summary ---
Demographics + + + | Address | [address] [place] [address] | | | [place] [address] | + + + | Home Phone | | + + + | Preferred Language | Unknown | + + + | Marital Status | | + + + | Episcopalian Affiliation | Unknown | + + + | Race | Unknown | + + + | Ethnic Group | Unknown | + + + Author + + + | Author | [facility] | | | and [place] | + + + | Organization | [facility] | | | and [place] [...] Team Providers + +------+ + | Care Mammographer Name | Role | Phone | + [...] [place] | | | | | [phone] | [place] [address] | | +--------+ + + + + [...] [place] | | | | | | [place] [address] | | | | | | [phone] | | | | | | | | | | | | Online Marketing ManagerTami | | +--------+ + + + [...]
--- OUTSIDE RECORDS SUMMARY | ~2018-05-18 | XMS | Encounter Summary ---
Demographics + + + | Address | [address] [place] [address] | | | [place] [address] | + + + | Home Phone | | + + + | Preferred Language | Unknown | + + + | Marital Status | | + + + | Jew Affiliation | Unknown | + + + | Race | Unknown | + + + | Ethnic Group | Unknown | + + + Author + + + | Author | [facility] | | | and [place] | + + + | Organization | [facility] | | | and [place] [...] Team Providers + +------+ + | Care Leather Grader Name | Role | Phone | + [...] [place] | | | | | [phone] | [place] [address] | | +--------+ + + + + [...] | | | | | [place] [address] | | | | | | [phone] | | | | | | | | | | | | [address] Vendor [place] | | +--------+ + + + [...]
--- OUTSIDE RECORDS SUMMARY | ~2018-05-18 | XMS | Encounter Summary ---
Demographics + + + | Address | [address] [place] [address] | | | [place] [address] | + + + | Home Phone | | + + + | Preferred Language | Unknown | + + + | Marital Status | | + + + | Mandaeism Affiliation | Unknown | + + + | Race | Unknown | + + + | Ethnic Group | Unknown | + + + Author + + + | Author | [facility] | | | and [place] | + + + | Organization | [facility] | | | and [place] [...] Team Providers + +------+ + | Care Hat Blocking Machine Operator Name | Role | Phone | [...] | | | | n | | [address] [place] | | | | | | [address] | [place], [place] | | | | | | WAY | [address] Phone: | | | | | | [place], | [phone] | | | | | | [place] [address] | Fax: | | | | | | Phone: | [phone] | | | | | | [phone] | | | | | | | Fax: | | | | | | | [phone] | | +--------+--------+ + + + + [...] low back pain | | | | [place], | [address] [place] | without sciatica | | | | [place] [address] | [place] [address] | (Primary Dx); DDD | | | | [phone] | [phone] | (degenerative disc | | | | | | disease), lumbar - | | | | | | L5/S1; Facet | | | | | | arthritis of lumbar | | | | | | region ([facility]) | +--------+---------+ + + + Social History [...] of blood sugars if you are diabetic. watermaster risk can lead to osteoporosis which is [...] of the procedure you must provide a combine driver to take you home. For all procedur es it is recommended that someone else drive you home. in this encounter Progress Notes Liv Porter PA-C - 04/01/2018 1300 PDTFormatting of this note may be different fro m the original. Liv Porter PA-C [address] [facility], [address] [place], [place] [address] FAX: PHYSICAL MEDICINE AND REHABILITATION H&P CHIEF [...] have included physical therapy at [facility], use of NSAI Ds, muscle relaxer's, [...] with other NS AIDS 60 tablet 5 bihkndzekrzj-ieqm-eqayette-folic acid (THERAPEUTIC-M) TABS Take 1 tablet by [...] has no apparent deficits with short or skilled nursing memory. She has appropriate fund of knowledge [...] PT (multiple sessions over the years) and resident care spec. Unfortunately she jose luis nues to have [...] continuing with home exercise program from physical therapist apy, stretching of the lower legs along [...] [place] | | | | | | [place] [address] | | | | | | [phone] | | | | | | | | | | | | Milled Lumber GraderTami | | +--------+ + + + + [...]
--- OUTSIDE RECORDS SUMMARY | ~2018-05-18 | XMS | Encounter Summary ---
Demographics + + + | Address | [address] [place] [address] | | | [place] [address] | + + + | Home Phone | | + + + | Preferred Language | Unknown | + + + | Marital Status | | + + + | Yarsanism Affiliation | Unknown | + + + | Race | Unknown | + + + | Ethnic Group | Unknown | + + + Author + + + | Author | [facility] | | | and [place] | + + + | Organization | [facility] | | | and [place] [...] Team Providers + +------+ + | Care Online Advertising Manager Name | Role | Phone | + [...] IMAGING | | | | | | [phone] | | | +--------+ + + + [...] | | | | | | [place] [address] | | | | | | [phone] | | | | | | | | | | | | Anesthesiology PhysicianTami | | +--------+ + + + + as of this encounter Visit Diagnoses Not on filein this encounter"
--- OUTSIDE RECORDS SUMMARY | ~2018-05-18 | XMS | Encounter Summary ---
Demographics + + + | Address | [address] [place] [address] | | | [place] [address] | + + + | Home Phone | | + + + | Preferred Language | Unknown | + + + | Marital Status | | + + + | Druze Affiliation | Unknown | + + + | Race | Unknown | + + + | Ethnic Group | Unknown | + + + Author + + + | Author | [facility] | | | and [place] | + + + | Organization | [facility] | | | and [place] | [...] Team Providers + +------+ + | Care Melt House Supervisor Name | Role | Phone | + [...] [place], | | | | | [place], [place] | [place] [address] | | | | | [address] | [phone] | | | | | [phone] | | | +--------+ + + + [...] | | | | | [place] [address] | | | | | | [phone] | | | | | | | | | | | | Sales Enablement Lead, [facility] | | +--------+ + + + + as of this encounter Visit Diagnoses Not on filein this encounter"
--- OUTSIDE RECORDS SUMMARY | ~2018-05-18 | XMS | Encounter Summary ---
Demographics + + + | Address | [address] [place] [address] | | | [place] [address] | + + + | Home Phone | | + + + | Preferred Language | Unknown | + + + | Marital Status | | + + + | Mandaen Affiliation | Unknown | + + + | Race | Unknown | + + + | Ethnic Group | Unknown | + + + Author + + + | Author | [facility] | | | and [place] | + + + | Organization | [facility] | | | and [place] [...] Team Providers + +------+ + | Care Experimental Mechanic Electrical Name | Role | Phone | + [...] | 04/09/ | Telephone | [facility] [place] | [place], | Diagnostic Order | | 2017 | | PHYSIATRY [address] | [address] | (xray) | | | | [place], | [address] [place] | | | | | [place] [address] | [place] [address] | | | | | [phone] | [phone] | | | | | | | [...] | | | | | | [place] [address] | | | | | | [phone] | | | | | | | | | | | | Content Strategy LeadTami | | +--------+ + + + + as of this encounter Visit Diagnoses Not on filein this encounter"
--- OUTSIDE RECORDS SUMMARY | ~2018-05-18 | XMS | Encounter Summary ---
Demographics + + + | Address | [address] [place] [address] | | | [place] [address] | + + + | Home Phone | | + + + | Preferred Language | Unknown | + + + | Marital Status | | + + + | Oriental Orthodox Affiliation | Unknown | + + + | Race | Unknown | + + + | Ethnic Group | Unknown | + + + Author + + + | Author | [facility] | | | and [place] | + + + | Organization | [facility] | | | and [...] Team Providers + +------+ + | Care Product Manager E Commerce Name | Role | Phone | + [...] [address] | | | | [place], | [address] [place] | | | | | [place] [address] | [place] [address] | | | | | [phone] | [phone] | | | | | | | [...] | | | | | | [place] [address] | | | | | | [phone] | | | | | | | | | | | | Loss Mitigation SpecialistTami | | +--------+ + + + + as of this encounter Visit Diagnoses Not on filein this encounter"
[~2018-05-18 07:58] MED LIST changes: +AUGMENTIN 875-1 EACH PO; +CERTAVITE-ANTI1 EACH PO; +LOSARTAN POTASS50 MG PO; +NORCO 10-325 T1 EACH PO; +SUMATRIPTAN SU100 MG PO; +TIZANIDINE HCL4 MG PO; +TOPIRAMATE25 MG PO
--- OUTSIDE RECORDS SUMMARY | 2018-05-18 08:04 | XMS ---
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 Conrad has no Care Guidelines for this patient. Pinky VISIT COUNT (12 MO.) [address] [facility] TOTAL 3 NOTE: Visits indicate total known visits. 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 - Headache - Acute sinusitis, unspecified 09/14/2017 12:09 [facility] [place] TYPE: Emergency COMPLAINT: - CHEST PAIN/INJURY DIAGNOSES: - Essential (primary) hypertension - Migraine, unspecified, not intractable, without status migrainosus - Unspecified injury of right lower leg, initial encounter - Contusion of right front wall of thorax, initial encounter - Striking against or struck by other objects, initial encounter - Contusion of left front wall of thorax, initial encounter - Unspecified injury of head, initial encounter - Attention-deficit hyperactivity disorder, unspecified type - Other intermediate (current) drug therapy - Unspecified injury of head, initial encounter INPATIENT VISIT TRACKING (12 MO.) No inpatient visits to display in this time frame [email or web address]
[2018-05-18] MEDS ORDERED: TOPIRAMATE100 MG PO (08:12)
[2018-05-18] MEDS ORDERED: AMOX TR-K CLV1 EAC1 PO (08:12)
[2018-05-18] MEDS ORDERED: NAPROXEN500 MG PO (08:14)
[2018-05-18] MEDS ORDERED: ONDANSETRON ODT8 MG PO (08:32)
[2018-05-18] MEDS ORDERED: PROMETHAZINE HC25 M1 PO (13:22)
== END 2018-05-18 13:41 | disposition home or self-care (01) ==
LOC: ED 07:58
DX: J32.9 Chronic sinusitis, unspecified (principal); I10 Essential (primary) hypertension; Z79.899 Other long term (current) drug therapy
CPT/HCPCS: 96361; 96374; 96375; 99283; J1885; J2060; J2550; J7030

== ENCOUNTER 2018-12-15 19:01 | Emergency (ER) | payer OTHER ==
[~2018-12-15] VITALS: Ht 154.9 cm; Wt 74.8 kg
--- OUTSIDE RECORDS SUMMARY | ~2018-12-15 | XMS | Encounter Summary ---
Demographics + + + | Address | [address] | | | [place] [address] | + + + | Home Phone | | + + + | Preferred Language | Unknown | + + + | Marital Status | | + + + | Bahai Affiliation | Unknown | + + + | Race | Unknown | + + + | Ethnic Group | Unknown | + + + Author + + + | Author | [facility] | | | and [place] | + + + | Organization | [facility] | | | and [place] | + + + | Address | Unknown | + + + | Phone | Unavailable | + + + Support + + +---------+ + | Name | Relationship | Address | Phone | + + +---------+ + | Taye Garcia | ECON | Unknown | | + + +---------+ + Care Team Providers + +------+ + | Care Insurance Risk Surveyor Name | Role | Phone | + +------+ + | Sherri Castellon MD | PCP | | + +------+ + Reason for Visit +--------+ + | Reason | Comments | +--------+ + | Other | | +--------+ + Encounter Details +--------+ + + + + | Date | Type | Department | Care Team | Description | +--------+ + + + + | 02/12/ | Telephone | [facility] [place] | Mervin Sidhu, | Other | | 2019 | | PHYSIATRY [address] | PA-C [address] | | | | | [place], | [address] [place] | | | | | [place] [address] | [place] [address] | | | | | [phone] | [phone] | | | | | | | | +--------+ + + + + Social History + +-------+ +--------+------+ | Tobacco Use | Types | Packs/Day | Years | Date | | | | | Used | | + +-------+ +--------+------+ | Never Smoker | | | | | + +-------+ +--------+------+ + +---+---+---+ | Smokeless Tobacco: | | | | | Never Used | | | | + +---+---+---+ + + +---------+ + | Alcohol Use | Drinks/We | oz/Week | Comments | | | ek | | | + + +---------+ + | No | | | | + + +---------+ + + + + | Sex Assigned at | Date Recorded | | | | + + + | Not on file | | + + + + + + + | Job Start Date | Occupation | Industry | + + + + | Not on file | Not on file | Not on file | + + + + + + + + | Travel History | Travel Start | Travel End | + + + + + + | No recent travel history available. | + + documented as of this encounter Plan of Treatment Not on filedocumented as of this encounter Visit Diagnoses + + | Diagnosis | + + | Medication refill Issue of repeat prescriptions | + + documented in this encounter"
--- OUTSIDE RECORDS SUMMARY | ~2018-12-15 | XMS | Encounter Summary ---
Demographics + + + | Address | [address] | | | [place] [address] | + + + | Home Phone | | + + + | Preferred Language | Unknown | + + + | Marital Status | | + + + | Zoroastrian Affiliation | Unknown | + + + | Race | Unknown | + + + | Ethnic Group | Unknown | + + + Author + + + | Author | [facility] | | | and [place] | + + + | Organization | [facility] | | | and [place] [...] Team Providers + +------+ + | Care Mathematics Department Chair Name | Role | Phone | + +------+ + | Sherri Castellon MD | PCP | | + +------+ + Reason for Visit + + + | Reason | Comments | + + + | Back Pain | | + + + Encounter Details +--------+---------+ + + + | Date | Type | Department | Care Team | Description | +--------+---------+ + + + | 12/11/ | Office | [facility] | Mervin Sidhu, | Lumbar spondylosis; | | 2019 | Visit | PHYSIATRY [address] | PA-C [address] | Lumbar radiculopathy | | | | [place], | [address] [place] | | | | | [place] [address] | [place] [address] | | | | | [phone] | [phone] | | | | | | | | +--------+---------+ + + + Social History + +-------+ [...] + + documented as of this encounter Last Filed Vital Signs + + + + | Vital Sign | Reading | Time Taken | + + + + | Blood Pressure | 119/86 | 12/11/20181526 PDT | + + + + | Pulse | 107 | 12/11/20181526 PDT | + + + + | Temperature | - | - | + + + + | Respiratory Rate | - | - | + + + + | Oxygen Saturation | - | - | + + + + | Inhaled Oxygen | - | - | | Concentration | | | + + + + | Weight | 75.8 kg (167 lb) | 12/11/20181526 PDT | + + + + | Height | 154.9 cm (5' 1") | 12/11/20181526 PDT | + + + + | Body Mass Index | 31.55 | 12/11/20181526 PDT | + + + + documented in this encounter Patient Instructions Patient Instructions Mervin Sidhu PA-C - 12/11/2018 15:40 PDTGabapentin: Pain medicine that works on the nerves of the body. Most effective when you start off with low dose and slowly titrate up. Begin with taking medication at bedtime. Therapeutic dose is 300mg three times per day. Begin with 300mg at bedtime x 5 days Increase to 300mg twice daily x 5 days Increase to 300mg three times/day. If no response after 2 weeks, titrate up to 600mg three times per day. MAX DOSE: 1200mg 3 times per day. Possible side effects include: sedation, balance issues, mild leg swelling. Follow up as needed. Call office to request refill. Injections ordered today: bilateral L5/S1 injections. If no improvement after 2 weeks, call our office and I will place referral for surgery with Dr Daniels here at [facility]. Please remember to complete pain log form after having injection. This is an insurance requ irement and allows faster approval of any future injections. Follow-up at the hospital thirty minutes before your scheduled procedure to allow for time to check in. You may eat and drink as usual on the day of the procedure. If you are scheduled for an epidural injection do not take any blood thinning medications f or at least 5-7 days prior to your procedure unless you have been instructed by another phys ician not to discontinue blood thinning medications. If you are having a procedure other than an epidural injection (i.e. facet injection, media l branch block, SI joint injection or other joint injection) it is not absolutely necessary to discontinue blood thinning medications but doing so will decrease the risk of bruising or bleeding. If you have had a prior stroke, DVT or PE or if you are taking blood thinning medication be cause you have atrial fibrillation, a prosthetic cardiac valve replacement or heart stenting do not stop taking your blood thinning medications unless you have permission from your car diologist or primary care provider. All other medications should be taken as usual on the day of the procedure. Common blood thinning medications include: Aspirin (a baby aspirin is o.k.) Ibuprofen (Advil or Motrin) Naproxen (Aleve) Nabumetone (Relafen) Clopidogrel (Plavix) Dipyridamole/ASA (Aggrenox) Warfarin (Coumadin) Dabigatran (Pradaxa) Rivaroxaban (Xarelto) There are many others. If you have questions about your medications and whether or not you should stop any medications please contact our office. If you are having an epidural injection or if you take any medication for relaxation/sedati on on the day of the procedure you must provide a regional owner operator truck driver to take you home. For all procedur es it is recommended that someone else drive you home. documented in this encounter Progress Notes Mervin Sidhu PA-C - 12/11/2018 1540 PDTFormatting of this note might be different from th e original. [address] [facility], [address] [place], [place] [address] FAX: PHYSICAL MEDICINE AND REHABILITATION H&P CHIEF COMPLAINT: Chief Complaint Patient presents with Back Pain HISTORY OF PRESENT ILLNESS: The patient is a 43 y.o. female being seen today for follow up complaints of low back pain. She had a L5/S1 facet MBB without adequate relief. She is her e today to discuss other options for low back pain. She continues to have low back pain pauline t now radiates into leg and foot, she describes this as aching, stable, moderate to severe. Her symptoms worsen with standing, sitting, walking, running, kneeling, bending, twisting, she feels her symptoms first thing in the morning and it just gets worse throughout the day . Her symptoms improve with nothing, she is taking NSAIDS, muscle relaxers all which do not help. The patient also describes leg symptoms that occur on left side. The leg symptoms account for greater than or equal to 25% of her symptoms. The leg symptoms are intermittent and the symptoms travels from the posterior thigh. The patient does describe numbness of the left posterior thigh intermittent. She does not report weakness of the legs. She does not have bowel and bladder dysfunction. She does n ot have saddle anesthesia. Treatments for these complaints have included physical therapy at [facility], use of NSAI Ds, muscle relaxer's, narcotics, chiropractic therapy. The patient has a secondary complaint of neck pain. She denies any radiation into the uppe r extremities, she denies any paresthesias, she denies any balance issues. She reports her neck pain is to the bilateral trapezius region, she denies headaches. The patient reports i ncreased tension and this causes her to have increased neck pain. She is under a lot of str ess right now. Is not had physical therapy for the neck right now. Patient's medications, allergies, past medical, surgical, social and family histories were reviewed and updated as appropriate. CURRENT MEDICATIONS: Current Outpatient Medications Medication Sig Dispense Refill celecoxib (CELEBREX) 200 mg capsule Take 1 capsule by mouth 2 times daily. 60 capsule 2 citalopram (CELEXA) 10 mg tablet Take 30 mg by mouth Daily. naproxen (NAPROSYN) 500 mg tablet Take 500 mg by mouth 2 times daily (with breakfast & dinner). propranolol (INDERAL) 40 mg tablet Take 40 mg by mouth 2 times daily. No current facility-administered medications for this visit. ALLERGIES: Allergies Allergen Reactions Ketorolac Hives REVIEW OF SYSTEMS: A multisystem review of system checklist was reviewed with the patient and shows only the p ain and/or parasthesias and other complaints as in HPI. All remaining review of systems was negative. PHYSICAL EXAMINATION: There were no vitals filed for this visit. Body mass index is 31.55 kg/m. GENERAL: The patient is well developed and well nourished. She does appear uncomfortable w hen seated. HEENT: HEAD/FACE: EYES: EARS: NASOPHARNYX: OROPHARNYX: Normocephalic and atraumatic. There are no areas of recent trauma. Normal sclerae without icterus. No drainage or tenderness. Clear without drainage. Clear without erythema. SKIN Limited skin exam shows no significant rashes or lesions. There are not scars in the lumbar region. CHEST: The patient is in no acute respiratory distress with unlabored respirations. HEART: There is not lower extremity edema. ABDOMEN: The patient is not overweight. NEUROLOGIC: The patient is awake, alert, and oriented to time, place, person. She follows simple and complex commands. Her speech is fluent. She comprehends speech well. She has no apparent deficits with short or pest technician memory. She has appropriate fund of knowledge Cranial nerves 2-12 appear grossly intact. Sensory exam does not show diminished sensation to light touch in the lower extremities. MUSCULOSKELETAL There is no tenderness in the midline of the cervical or thoracic spine. T here is no major palpable deformity of the spine. Straight leg raise and slump-sit are negative. Ricardo's maneuver and impingement testing were negative for any groin pain. There was no tenderness to palpation over the greater tr ochanters or sacral sulci. The patient localized the majority of the pain to the L5/S1 jennifer on. Lumbar facet loading was positive at L5/S1. Strength testing showed 5/5 strength throu ghout the lower extremities. The patient was able to heel and toe walk without difficulty. There was no redness, effusion, warmth or joint line tenderness in the knees or ankles. REFLEX: RIGHT LEFT PATELLAR 2+ 2+ ACHILLES 2+ 2+ RADIOGRAPHIC REVIEW: The patient's imaging was reviewed in detail with the patient today during the visit. Lumb ar MRI from 2018 shows lumbar degenerative disc disease and spondylolisthesis with disc bulg e causing severe at L5-S1 bilateral foraminal stenosis. Cervical MRI from 2018 shows no central stenosis and no foraminal stenosis early degenerat cait disc disease. ASSESSMENT: 1. Lumbar spondylosis 2. Lumbar radiculopathy PLAN: 1) Today we discussed the patient's differential diagnosis with the likely primary issue be ing LUMBAR RADICULOPATHY. Patient's description of symptoms, physical exam, and imaging sugg est this diagnosis at this time. 2) I counseled patient on treatment options which included conservative self management usi ng OTC NSAIDs/Ice and heat packs, physical therapy, prescription medications, epidural stero id injection, neuromodulation devices, as well as possible surgical intervention. 3) Imaging: As descibed above in radiology review. 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 Unfortunately Kay Garcia continues to have significant discomfort. It appears to me that the pain is prima rily coming from L5/S1. I did feel that Kay Garcia would be a good candidate for interventional procedur es and I offered a bilateral L5/S1 TFESI to be done. I did feel that Kay Garcia would be a good candidate for medication: gabapentin 300mg. 5) Patient will follow up with me 3 weeks post injection/as needed to discuss any imaging a nd/or progress with today's treatment plan. 6) If current treatment plan is insufficient for symptom relief we could try referral to sha alvarez ([facility]) for single level intervention (L5/S1) as the next therapy option. I spent 30 minutes in visit with Kay Garcia today with the majority of time spent c ounselling the patient on her diagnosis, options for her care, and coordinating her care. CC:Sherri Castellon MD [facility] umented in this encounter Plan of Treatment + +--------+ + + | Name | Priori | Associated Diagnoses | Order Schedule | | | ty | | | + +--------+ + + | FL POONAM Lumbar Transforaminal | Routin | Lumbar spondylosis | Expected: | | | e | Lumbar | 12/11/2018, Expires: | | | | radiculopathy | 12/12/2019 | + +--------+ + + documented as of this encounter Visit Diagnoses + + | Diagnosis | + + | Lumbar spondylosis Lumbosacral spondylosis without myelopathy | + + | Lumbar radiculopathy Thoracic or lumbosacral neuritis or radiculitis, unspecified | + + documented in this encounter
--- OUTSIDE RECORDS SUMMARY | ~2018-12-15 | XMS | Encounter Summary ---
Demographics + + + | Address | [address] | | | [place] [address] | + + + | Home Phone | | + + + | Preferred Language | Unknown | + + + | Marital Status | | + + + | Cheondoism Affiliation | Unknown | + + + | Race | Unknown | + + + | Ethnic Group | Unknown | + + + Author + + + | Author | [facility] | | | and [place] | + + + | Organization | [facility] | | | and [...] Team Providers + +------+ + | Care Medical Office Receptionist Assistant Name | Role | Phone | + +------+ + | Sherri Castellon MD | PCP | | + +------+ + Reason for Visit Service/Procedure (Routine) +--------+--------+ + + + + | Status | Reason | Specialty | Diagnoses / | Referred By | Referred To | | | | | Procedures | Contact | Contact | +--------+--------+ + + + + | Closed | | Radiology | Diagnoses | | [facility] | | | | | Spondylosis | Rachel, | [address] | | | | | of lumbar | Jesse Sheldon MD | [place], | | | | | region | [address] | [place] | | | | | without | [place] | [address] | | | | | myelopathy | [place], [place] | Phone: | | | | | or | [address] | [phone] | | | | | radiculopath | Phone: | Fax: | | | | | y | [phone] | [phone] | | | | | Procedures | Fax: | | | | | | MS INJ | [phone] | | | | | | DX/THER AGNT | | | | | | | PARAVERT | | | | | | | FACET JOINT, | | | | | | | LUMBAR/SAC, | | | | | | | 1ST LEVEL | | | | | | | MS INJ | | | | | | | DX/THER AGNT | | | | | | | PARAVERT | | | | | | | FACET JOINT, | | | | | | | LUMBAR/SAC, | | | | | | | 2ND LEVEL | | | | | | | Bilateral L4 | | | | | | | MBB, | | | | | | | Bilateral L5 | | | | | | | DR #2 | | | +--------+--------+ + + + + Encounter Details +--------+ + + + + | Date | Type | Department | Care Team | Description | +--------+ + + + + | 10/02/ | Hospital | [facility] | Jesse Ramos | Facet arthritis of | | 2019 | Encounter | MED CTR XRAY [address] | TMD [address] | lumbar region (HCC); | | | | [place] | [facility] [place], [place] | Spondylosis of | | | | [place] [address] | [address] | lumbar region | | | | [phone] | | without myelopathy | | | | | [employer] [place] | or radiculopathy | +--------+ + + + + Social [...] this encounter Last Filed Vital Signs + +---------+ + | Vital Sign | Reading | Time Taken | + +---------+ + | Blood Pressure | 141/97 | 10/02/2018 1530 PST | + +---------+ + | Pulse | 88 | 10/02/2018 1530 PST | + +---------+ + | Temperature | - | - | + +---------+ + | Respiratory Rate | - | - | + +---------+ + | Oxygen Saturation | - | - | + +---------+ + | Inhaled Oxygen | - | - | | Concentration | | | + +---------+ + | Weight | - | - | + +---------+ + | Height | - | - | + +---------+ + | Body Mass Index | - | - | + +---------+ + documented in this encounter Medications at Time of Discharge + + + +---------+ + + | Medication | Sig | Dispensed | Refills | Start | End Date | | | | | | Date | | + + + +---------+ + + | naproxen | Take 500 mg by mouth | | 0 | | | | (NAPROSYN) 500 mg | 2 times daily (with | | | | | | tablet | breakfast & | | | | | | | dinner). | | | | | + + + +---------+ + + | celecoxib | Take 1 capsule by | 60 | 2 | 06/28/20 | | | (CELEBREX) 200 mg | mouth 2 times daily. | capsule | | 18 | 9 | | capsule | | | | | | + + + +---------+ + + | citalopram | Take 30 mg by mouth | | 0 | | | | (CELEXA) 10 mg | Daily. | | | | 9 | | tablet | | | | | | + + + +---------+ + + | propranolol | Take 40 mg by mouth | | 0 | | | | (INDERAL) 40 mg | 2 times daily. | | | | 9 | | tablet | | | | | | + + + +---------+ + + documented as of this encounter Plan of Treatment Not on filedocumented as of this encounter Procedures + +--------+ + + + | Procedure Name | Priori | Date/Time | Associated Diagnosis | Comments | | | ty | | | | + +--------+ + + + | FL FACET INJECTION | Routin | 10/02/2018 | Facet arthritis of | Results for this | | LUMBAR SACRAL | e | 15:00 PST | lumbar region (HCC) | procedure are in the | | | | | Spondylosis of | results section. | | | | | lumbar region | | | | | | without myelopathy | | | | | | or radiculopathy | | + +--------+ + + + documented in this encounter Results FL Facet Injection Lumbar Sacral (10/02/2018 15:00 PST) + + | Specimen | + + | | + + + + + | Narrative | Performed At | + + + | | [facility] | | 10/02/2018 Procedure: Lumbar Medial Branch BlockDiagnosis: Lumbar | | | spondylosis ICD-10 M47.817 Kay Garcia presents to the | | | fluoroscopy suite for fluoroscopically guided bilateral L4 medial | | | branch blocks and bilateral L5 dorsal ramus blocks as part of | | | conservative management for chronic pain with lumbar spondylosis. | | | After informed consent was obtained, the patient lay in a prone | | | position on the fluoroscopy table. The areas were identified under | | | fluoroscopic guidance. The areas were prepped and draped in a sterile | | | fashion. A 25-gauge 1.5-inch needle was inserted into each region and | | | approximately 2 mL of buffered 1% lidocaine was infused. Then a | | | 22-gauge spinal needle was advanced to the correct position at each | | | site under fluoroscopic guidance. Confirmation into the proper | | | location was obtained with infusion of a small amount of Omnipaque | | | contrast at each site. Then 0.5 mL of 0.5% ropivacaine was infused at | | | each location. Pre- and postprocedure blood pressures were stable. The | | | patient was given verbal as well as written followup instructions. | | | The patient reported good improvement in pain symptoms postprocedure | | | suggesting that this was a positive block. Prior to the start of the | | | procedure the following were performed or verified including correct | | | patient identity, correct site and side marked and visible, agreement | | | on the procedure to be done, correct patient positioning and an | | | accurate procedure consent form, and any safety precautions based on | | | clinical history and/or medications have been addressed. I | | | personally performed the procedure above. Estimated blood loss: | | | MinimalComplications: NoneFindings: As expectedAnesthesia: Local | | | 1% Lidocaine | | |addressed. | | | | | |I personally performed the procedure above. | | | | | | | | |Estimated blood loss: Minimal | | |Complications: None | | |Findings: As expected | | |Anesthesia: Local 1% Lidocaine | | + + + + +---------+ + + | Performing | Address | City/State[facility] | Phone Number | | Organization | | | | + +---------+ + + | [facility] | | | | + +---------+ + + documented in this encounter Visit Diagnoses + + | Diagnosis | + + | Facet arthritis of lumbar region Lumbosacral spondylosis without myelopathy | + + | Spondylosis of lumbar region without myelopathy or radiculopathy Lumbosacral | | spondylosis without myelopathy | + + documented in this encounter Administered Medications + +--------+ +-------+------+------+ | Medication Order | MAR | Action | Dose | Rate | Site | | | Action | Date | | | | + +--------+ +-------+------+------+ | iohexol (OMNIPAQUE 300) 300 | Given | 10/02/19 | 3 mLs | | | | mg/mL injection 3 mL 3 mL, | | 19 15:10 | | | | | Other, ONCE, 10/02/18 at 1530, | | PST | | | | | For 1 dose | | | | | | + +--------+ +-------+------+------+ +---+---+ | | | +---+---+ + +-------+ +-------+---+ + | lidocaine buffered 0.9% | Given | 10/02/19 | 6 mLs | | Other | | injection 6 mL 6 mL, | | 19 15:05 | | | (Comment | | Intradermal, ONCE, 10/02/18 at | | PST | | | ) | | 1530, For 1 dose | | | | | | + +-------+ +-------+---+ + +---+---+ | | | +---+---+ + +-------+ +-------+---+---+ | ropivacaine (NAROPIN) 5 mg/mL | Given | 10/02/19 | 2 mLs | | | | (0.5%) injection 2 mL 2 mL, | | 19 15:15 | | | | | PERINEURAL, ONCE, 10/02/18 at | | PST | | | | | 1530, For 1 dose | | | | | | + +-------+ +-------+---+---+ +---+---+ | | | +---+---+ documented in this encounter"
--- OUTSIDE RECORDS SUMMARY | ~2018-12-15 | XMS | Encounter Summary ---
Demographics + + + | Address | [address] | | | [place] [address] | + + + | Home Phone | | + + + | Preferred Language | Unknown | + + + | Marital Status | | + + + | Jehovah'S Witness Affiliation | Unknown | + + + | Race | Unknown | + + + | Ethnic Group | Unknown | + + + Author + + + | Author | [facility] | | | and [place] | + + + | Organization | [facility] | | | and [place] [...] Team Providers + +------+ + | Care Technical Sourcing Recruiter Name | Role | Phone | + +------+ + | Sherri Castellon MD | PCP | | + +------+ + Reason for Visit +--------+ + | Reason | Comments | +--------+ + | Other | | +--------+ + Encounter Details +--------+ + + + + | Date | Type | Department | Care Team | Description | +--------+ + + + + | 09/16/ | Telephone | [facility] [place] | Jesse Ramos | Other | | 2019 | | PHYSIATRY [address] | [address], [address] | | | | | [place], | [address] [place] | | | | | [place] [address] | [address] | | | | | [phone] | | | +--------+ + + + [...] Not on filedocumented as of this encounter Results [place] Facet Injection Lumbar Sacral (10/02/2018 15:00 PST) + + | Specimen | + + | | + + + + + | Narrative | Performed At | + + + | | [facility] | | 10/02/2018 Procedure: Lumbar Medial Branch BlockDiagnosis: Lumbar | | | spondylosis ICD-10 M47.817 Kaymauri Garcia presents to the | | | [...] + + | Performing | Address | [facility]/State/Zipcode | Phone Number | | Organization | | | | + +---------+ + + | [facility] | | | | + +---------+ + + documented in this encounter Visit Diagnoses + + | Diagnosis | + + | Facet arthritis of lumbar region - Primary Lumbosacral spondylosis without myelopathy | + + | Spondylosis of lumbar region without myelopathy or radiculopathy Lumbosacral | | spondylosis without myelopathy | + + documented in this encounter"
--- OUTSIDE RECORDS SUMMARY | ~2018-12-15 | XMS | Encounter Summary ---
Demographics + + + | Address | [address] | | | [place] [address] | + + + | Home Phone | | + + + | Preferred Language | Unknown | + + + | Marital Status | | + + + | Latter Day Affiliation | Unknown | + + + | Race | Unknown | + + + | Ethnic Group | Unknown | + + + Author + + + | Author | [facility] | | | and [place] | + + + | Organization | [facility] | | | and [place] | [...] Team Providers + +------+ + | Care Fibre Optics Jointer Name | Role | Phone | + [...] + + + + | 10/02/ | Telephone | [facility] [place] | Jesse Ramos | Other | | 2019 | | PHYSIATRY [address] | [address], [address] | | | | | [place], | [address] [place] | | | | | [place] [address] | [address] | | | | | [phone] | | | +--------+ + + + [...] filedocumented as of this encounter Visit Diagnoses Not on filedocumented in this encounter"
--- OUTSIDE RECORDS SUMMARY | ~2018-12-15 | XMS | Encounter Summary ---
Demographics + + + | Address | [address] | | | [place] [address] | + + + | Home Phone | | + + + | Preferred Language | Unknown | + + + | Marital Status | | + + + | Restoration Affiliation | Unknown | + + + | Race | Unknown | + + + | Ethnic Group | Unknown | + + + Author + + + | Author | [facility] | | | and [place] | + + + | Organization | [facility] | | | and [place] [...] Team Providers + +------+ + | Care Roofing Subcontractor Name | Role | Phone | + [...] + + | 12/11/ | Office | [facility] | Mervin Sidhu, | Lumbar spondylosis; | | 2019 | Visit | PHYSIATRY [address] | PA-C [address] | Lumbar radiculopathy | | | | [place], | [address] [place] | | | | | [place] [address] | [place] [address] | | | | | [phone] | [phone] | | | | | | | [...] for surgery with Dr Daniels here at [facility]. Please remember to complete pain log form [...] of the procedure you must provide a driver license examiner to take you home. For all procedur es it is recommended that someone else drive you home. documented in this encounter Progress Notes Mervin Sidhu PA-C - 12/11/2018 1540 PDTFormatting of this note might be different from th e original. 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 Unfortunately Kay Garcia continues to [...] we could try referral to sha alvarez ([facility]) for single level intervention (L5/S1) as the next therapy option. I spent 30 minutes in visit with Kay Garcia today with the majority of time spent c ounselling the patient on her diagnosis, options for her care, and coordinating her care. CC:Sherri Castellon MD [facility] umented in this encounter Plan of Treatment [...]
--- OUTSIDE RECORDS SUMMARY | ~2018-12-15 | XMS | Encounter Summary ---
Demographics + + + | Address | [address] | | | [place] [address] | + + + | Home Phone | | + + + | Preferred Language | Unknown | + + + | Marital Status | | + + + | Episcopalian Affiliation | Unknown | + + + | Race | Unknown | + + + | Ethnic Group | Unknown | + + + Author + + + | Author | [facility] | | | and [place] | + + + | Organization | [facility] | | | and [place] [...] Team Providers + +------+ + | Care Slope Hoist Operator Name | Role | Phone | + [...] | Spondylosis | Rachel, | [address] | | | | | of lumbar | Jesse Sheldon MD | [place], | | | | | region | [address] | [place] | | | | | without | [address] | [address] | | | | | myelopathy | [place], [place] | Phone: | | | | | or | [address] | [phone] | | | | | radiculopath | Phone: | Fax: | | | | | y | [phone] | [phone] | | | | | Procedures | Fax: | | | | | | FL INJ | [phone] | | | | | | DX/THER AGNT | | | | | | | PARAVERT | | | | | | | FACET JOINT, | | | | | | | LUMBAR/SAC, | | | | | | | 1ST LEVEL | | | | | | | FL INJ | | | | | | [...] + + | 10/02/ | Hospital | [facility] | Jesse Ramos | Facet arthritis of | | 2019 | Encounter | MED CTR XRAY [address] | T[address] | lumbar region (HCC); | | | | [place] | [facility] [place], [place] | Spondylosis of | | | | [place] [address] | [address] | lumbar region | | | | [phone] | | without myelopathy | | | | | [employer], Tami | or radiculopathy | +--------+ + [...] + + | Performing | Address | City/State/[facility] | Phone Number | | Organization | [...]
--- OUTSIDE RECORDS SUMMARY | ~2018-12-15 | XMS | Clinical Summary ---
Demographics + + + | Address | [address] | | | [place] [address] | + + + | Home Phone | | + + + | Preferred Language | Unknown | + + + | Marital Status | | + + + | Episcopal Affiliation | Unknown | + + + | Race | Unknown | + + + | Ethnic Group | Unknown | + + + Author + + + | Author | [facility] | | | and [place] | + + + | Organization | [facility] | | | [...] Team Providers + +------+ + | Care Html Developer Name | Role | Phone | + +------+ + | Sherri Castellon MD | PP | | + +------+ + Allergies + + + + + + | Active Allergy | Reactions | Severity | Noted | Comments | | | | | Date | | + + + + + + | Fluticasone | Palpitations | High | 12/12/19 | | | | | | 19 | | + + + + + + | Ketorolac | Hives | Medium | | | + + + + + + Medications + + + +---------+------+------+-------+ | Medication | Sig | Dispensed | Refills | Star | End | Statu | | | | | | t | Date | s | | | | | | Date | | | + + + +---------+------+------+-------+ | naproxen | Take 500 mg by mouth | | 0 | | | Activ | | (NAPROSYN) 500 mg | 2 times daily (with | | | | | e | | tablet | breakfast & | | | | | | | | dinner). | | | | | | + + + +---------+------+------+-------+ | celecoxib | Take 1 capsule by | 60 | 2 | 02/ | | Activ | | (CELEBREX) 200 mg | mouth 2 times daily. | capsule | | 2/20 | | e | | capsule | | | | 19 | | | + + + +---------+------+------+-------+ | venlafaxine | Take 75 mg by mouth | | 0 | 03/1 | | Activ | | (EFFEXOR XR) 75 mg | Daily. | | | 3/20 | | e | | 24 hr capsule | | | | 19 | | | + + + +---------+------+------+-------+ | venlafaxine | Take 150 mg by mouth | | 0 | 04/0 | | Activ | | (EFFEXOR XR) 150 mg | Daily. | | | 4/20 | | e | | 24 hr tablet | | | | 19 | | | + + + +---------+------+------+-------+ | topiramate | Take 25 mg by mouth | | 0 | | | Activ | | (TOPAMAX) 25 mg | Daily. | | | | | e | | tablet | | | | | | | + + + +---------+------+------+-------+ | SUMAtriptan | Take 100 mg by mouth | | 0 | | | Activ | | (IMITREX) 100 mg | as needed. | | | | | e | | tablet | | | | | | | + + + +---------+------+------+-------+ | ondansetron | Take 4 mg by mouth 2 | | 0 | 02/1 | | Activ | | (ZOFRAN ODT) 4 mg | times daily. | | | 2/20 | | e | | disintegrating | | | | 19 | | | | tablet | | | | | | | + + + +---------+------+------+-------+ | Multiple | Daily. | | 0 | 02/2 | | Activ | | Vitamins-Minerals | | | | 6/20 | | e | | (CENTROVITE) TABS | | | | 19 | | | + + + +---------+------+------+-------+ | metoprolol | Take 25 mg by mouth | | 0 | 02/2 | | Activ | | tartrate (LOPRESSOR) | 2 times daily. | | | 0/20 | | e | | 25 mg tablet | | | | 19 | | | + + + +---------+------+------+-------+ | losartan (COZAAR) | Take 50 mg by mouth | | 0 | | | Activ | | 50 mg tablet | Daily. | | | | | e | + + + +---------+------+------+-------+ | hydrOXYzine | Take 25 mg by mouth | | 0 | 03/0 | | Activ | | hydrochloride | as needed. | | | /20 | | e | | (ATARAX) 25 mg | | | | 19 | | | | tablet | | | | | | | + + + +---------+------+------+-------+ | amitriptyline | Take 150 mg by mouth | | 0 | 03/1 | | Activ | | (ELAVIL) 50 mg | nightly as needed. | | | 5/20 | | e | | tablet | | | | 19 | | | + + + +---------+------+------+-------+ | gabapentin | Take one capsule by | 90 | 0 | 04/1 | | Activ | | (NEURONTIN) 300 mg | mouth at bedtime for | capsule | | 0/20 | | e | | capsule | one wk, then one | | | 19 | | | | | capsule twice daily | | | | | | | | for one wk, then 1 | | | | | | | | capsule three times | | | | | | | | daily | | | | | | + + + +---------+------+------+-------+ | citalopram | Take 30 mg by mouth | | 0 | | 04/1 | Disco | | (CELEXA) 10 mg | Daily. | | | | 0/20 | ntinu | | tablet | | | | | 19 | ed | + + + +---------+------+------+-------+ | propranolol | Take 40 mg by mouth | | 0 | | 04/1 | Disco | | (INDERAL) 40 mg | 2 times daily. | | | | 0/20 | ntinu | | tablet | | | | | 19 | ed | + + + +---------+------+------+-------+ Active Problems + + + | Problem | Noted Date | + + + | Lumbar spondylosis | 12/11/2018 | + + + | Lumbar radiculopathy | 12/11/2018 | + + + | Medication refill | 10/15/2018 | + + + | Neck pain | 06/28/2018 | + + + | DDD (degenerative disc disease), lumbar - L5/S1 | 04/01/2018 | + + + | Facet arthritis of lumbar region | 04/01/2018 | + + + | Minor depressive disorder | 03/29/2018 | + + + | Essential hypertension | 03/29/2018 | + + + [...] | + + + | Breast lump | 03/29/2018 | + + + | [...] | +--------+ + + + + | 12/11/ | Office | | Mervin Sidhu, | Lumbar spondylosis; | | 2018 | Visit | | [facility] | Lumbar radiculopathy | +--------+ + + + + | 10/15/ | Telephone | | Mervin Sidhu, | Other | | 2018 | | | [facility]ish | | +--------+ + + + + | 10/03/ | Documentati | | Jesse Ramos | | | 2018 | on | | MD Pito | | +--------+ + + + + | 10/02/ | Hospital | | Jesse Ramos | Facet arthritis of | | 2018 | Encounter | | MD Pito [employer]per, | lumbar region ([facility]); | | | | | [facility] | Spondylosis of | | | | | | lumbar region | | | | | | without myelopathy | | | | | | or radiculopathy | +--------+ + + + + | 10/02/ | Telephone | | Jesse Ramos | Other | | 2018 | | | MD Pito | | +--------+ + + + + | 09/16/ | Telephone | Jesse Ritter | Other | | 2018 | | | MD Pito | | +--------+ + + + + from Last 3 Months Family History + + + + + | Medical History | Relation | Name | Comments | + + + + + | No known problems | Child | | | + + + + + | No known problems | Child | | | + + + + + | No known problems | Daughter | Lili | | + [...] recent travel history available. | + + Last Filed Vital Signs + [...] 12/11/20181526 PDT | + + + + Plan of Treatment + + + + + | Health Maintenance | Due Date | Last Done | Comments | + + + + + | Cervical Cancer | | | | | Screening (Pap) | 7 | | | + + + + + | Vaccine: | | 04/30/2018 | | | Dtap/Tdap/Td (2 - | 8 | | | | Td) | | | | + + + + + | Vaccine: Influenza | Completed | 05/30/2018, 07/10/2017, | | | | | 07/12/2016, Additional history | | | | | exists | | + + + + + [...] | | + +--------+ + + + from Last 3 Months Results [place] Facet Injection Lumbar Sacral (10/02/2018 [...] + from Last 3 Months Insurance +-------+--------+ +--------+-------+---------+------+ | Payer | Benefi | Subscriber | Effect | Phone | Address | Type | | | t Plan | ID | cait | | | | | | / | | Dates | | | | | | Group | | | | | | +-------+--------+ +--------+-------+---------+------+ | [employer] | UMR | [id number] | 01/02/20 | | | PPO | | | [place] | | 14-Pre | | | | | | | | sent | | | | | | HEALTH | | | | | | | | CARE | | | | | | | | PPO | | | | | | +-------+--------+ +--------+-------+---------+------+ + +--------+ +--------+ + + | Guarantor Name | Accoun | Relation to | Date | Phone | Billing Address | | | t Type | Patient | of | | | | | | | | | | + +--------+ +--------+ + + | Kay Garcia | Person | Self [birth year] | [address] | | | al/Fam | | 1975 | [phone] | [place] [address] | | | maureen | | | 7 (Home) | | + +--------+ +--------+ + + Advance Directives Patient has advance care planning documents on file. For more information, please contact:[facility] [place] [address]
--- OUTSIDE RECORDS SUMMARY | ~2018-12-15 | XMS | Encounter Summary ---
Demographics + + + | Address | [address] | | | [place] [address] | + + + | Home Phone | | + + + | Preferred Language | Unknown | + + + | Marital Status | | + + + | Voodoo Affiliation | Unknown | + + + | Race | Unknown | + + + | Ethnic Group | Unknown | + + + Author + + + | Author | [facility] | | | and [place] | + + + | Organization | [facility] | | | and [...] Team Providers + +------+ + | Care Subscription Crew Leader Name | Role | Phone | + [...] [address] | | | | | [place], | [address] [place] | | | | | [place] [address] | [address] | | | | | [phone] | | | +--------+ + + + [...]
--- OUTSIDE RECORDS SUMMARY | ~2018-12-15 | XMS | Encounter Summary ---
Demographics + + + | Address | [address] | | | [place] [address] | + + + | Home Phone | | + + + | Preferred Language | Unknown | + + + | Marital Status | | + + + | Restorationism Affiliation | Unknown | + + + | Race | Unknown | + + + | Ethnic Group | Unknown | + + + Author + + + | Author | [facility] | | | and [place] | + + + | Organization | [facility] | | | and [place] [...] Team Providers + +------+ + | Care Vehicle Modification Technician Name | Role | Phone | + [...] [address] | | | | | [place], | [address] [place] | | | | | [place] [address] | [address] | | | | | [phone] | | | +--------+ + + + [...] + + | Performing | Address | [facility]/State/Zipcode | Phone Number | | [...]
--- OUTSIDE RECORDS SUMMARY | ~2018-12-15 | XMS | Encounter Summary ---
Demographics + + + | Address | [address] | | | [place] [address] | + + + | Home Phone | | + + + | Preferred Language | Unknown | + + + | Marital Status | | + + + | Anabaptism Affiliation | Unknown | + + + | Race | Unknown | + + + | Ethnic Group | Unknown | + + + Author + + + | Author | [facility] | | | and Hernanana | + + + | Organization | [facility] | | | and [...] Team Providers + +------+ + | Care Tank Assembler Name | Role | Phone | + +------+ + | Sherri Castellon MD | PCP | | + +------+ + Encounter Details +--------+ + + + + | Date | Type | Department | Care Team | Description | +--------+ + + + + | 10/03/ | Documentati | [facility] [place] | Jesse Ramos | | | 2019 | on | PHYSIATRY [address] | TMD [address] | | | | | [place], | [address] [place] | | | | | [place] [address] | [address] | | | | | [phone] | | | +--------+ + + + [...] + + documented as of this encounter Progress Notes Lucinda Granados - 10/03/2018 1406 PSTPain injection log received. documented in this encounter Plan of Treatment Not on filedocumented as of this encounter Visit Diagnoses Not on filedocumented in this encounter"
--- OUTSIDE RECORDS SUMMARY | ~2018-12-15 | XMS | Clinical Summary ---
Demographics + + + | Address | [address] | | | [place] [address] | + + + | Home Phone | | + + + | Preferred Language | Unknown | + + + | Marital Status | Unknown | + + + | Judaism Affiliation | Unknown | + + + | Race | Unknown | + + + | Ethnic Group | Unknown | + + + Author + + + | Author | [facility] | + + + | Organization | [facility] [employer] | + + + | Address | Unknown | + + + | Phone | Unavailable | + + + Care Team Providers + +------+ + | Care Manager Web Application Name | Role | Phone | + +------+ + | Sherri Castellon MD | PP | | + +------+ + Allergies Not on File Current Medications Not on file Active Problems Not on file Social History + +-------+ +--------+------+ | Tobacco [...] on file | | + + + Plan of Treatment + [...] Vaccine: Influenza | | | | | (Season Ended) | 9 | | | + + + + + Results Not on filefrom Last 3 Months Insurance + +--------+ +------+-------+---------+ | Payer | Benefi | Subscriber | Type | Phone | Address | | | t Plan | ID | | | | | | / | | | | | | | Group | | | | | + +--------+ +------+-------+---------+ | [employer] | UNITED | [id number] | | | | | | | | | | | | | HEALTH | | | | | | | CARE - | | | | | | | UMR | | | | | + +--------+ +------+-------+---------+ + +--------+ +--------+ + + | Guarantor Name | Accoun | Relation to | Date | Phone | Billing Address | | | t Type | Patient | of | | | | | | | | | | + +--------+ +--------+ + + | KAY BUCKLEY | Person | Self | [birth year] | Home: | [address] | | | al/[place]ajat | | 1975 | [phone] | [place] [address] | | | maureen | | | [phone] | | + +--------+ +--------+ + +"
--- OUTSIDE RECORDS SUMMARY | ~2018-12-15 | XMS | Encounter Summary ---
Demographics + + + | Address | [address] | | | [place] [address] | + + + | Home Phone | | + + + | Preferred Language | Unknown | + + + | Marital Status | | + + + | Scientology Affiliation | Unknown | + + + | Race | Unknown | + + + | Ethnic Group | Unknown | + + + Author + + + | Author | [facility] | | | and Hernanana | + + + | Organization | [facility] | | | and Hernanana [...] Team Providers + +------+ + | Care Coding Compliance Specialist Name | Role | Phone | + [...] [address] | | | | | [place], | [address] [place] | | | | | [place] [address] | [address] | | | | | [phone] | | | +--------+ + + + [...]
--- OUTSIDE RECORDS SUMMARY | ~2018-12-15 | XMS | Clinical Summary ---
Demographics + + + | Address | [address] | | | [place] [address] | + + + | Home Phone | | + + + | Preferred Language | Unknown | + + + | Marital Status | | + + + | Tenriism Affiliation | Unknown | + + + | Race | Unknown | + + + | Ethnic Group | Unknown | + + + Author + + + | Author | [facility] | | | and Hernanana | + + + | Organization | [facility] | | | and [...] Team Providers + +------+ + | Care Nitroglycerin Nitrator Operator Batch Name | Role | Phone | + [...] 2018 | Encounter | | MD Pito Aco Coordinator, | lumbar region ([facility]); | | | | | [facility] | [...] +-------+--------+ +--------+-------+---------+------+ | UMR | UMR | [id number] | 01/02/20 | | | PPO | [...] | 1975 | [phone] | [place] [address] | | | maureen | | | 7 (Home) | | + +--------+ +--------+ + + Advance Directives Patient has advance care planning documents on file. For more information, please contact:[facility] [place] [address]
--- OUTSIDE RECORDS SUMMARY | ~2018-12-15 | XMS | Clinical Summary ---
Demographics + + + | Address | [address] | | | [place] [address] | + + + | Home Phone | | + + + | Preferred Language | Unknown | + + + | Marital Status | Unknown | + + + | Rastafari Affiliation | Unknown | + + + | Race | Unknown | + + + | Ethnic Group | Unknown | + + + Author + + + | Author | [facility] | + + + | Organization | [facility] | + + + | Address | Unknown | + + + | Phone | Unavailable | + + + Care Team Providers + +------+ + | Care Fisher Pot Name | Role | Phone | + [...] +------+-------+---------+ | [employer] | UNITED | [id number] | | | | | | | [...] | 1975 | [phone] | [place] [address] | | | maureen | | | [phone] | | + +--------+ +--------+ + +"
--- OUTSIDE RECORDS SUMMARY | ~2018-12-15 | XMS | Encounter Summary ---
Demographics + + + | Address | [address] | | | [place] [address] | + + + | Home Phone | | + + + | Preferred Language | Unknown | + + + | Marital Status | | + + + | Orthodoxy Affiliation | Unknown | + + + | Race | Unknown | + + + | Ethnic Group | Unknown | + + + Author + + + | Author | [facility] | | | and Hernanana | + + + | Organization | [facility] | | | and Hernanana [...] Team Providers + +------+ + | Care Board Member Name | Role | Phone | + [...] [address] | | | | | [place], | [address] [place] | | | | | [place] [address] | [place] [address] | | | | | [phone] | [phone] | | | | | | | [...]
[~2018-12-15 19:01] MED LIST changes: +AMITRIPTYLINE150 MG PO; +AMOX TR-K CLV1 EAC1 PO; +BUTALB-ACETAMI1 EAC2 PO; +CYCLOBENZAPRINE10 MG PO; +INDERAL LA80 MG PO; +METOPROLOL TART25 MG PO; +NAPROXEN500 MG PO; +OMEPRAZOLE20 MG PO; +ONDANSETRON ODT8 MG PO; +PROMETHAZINE HC25 M1 PO; +TOPIRAMATE100 MG PO; +ULTRAM50 MG PO; +ZOFRAN ODT4 MG PO
--- OUTSIDE RECORDS SUMMARY | 2018-12-15 19:04 | XMS ---
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 Low Voltage Technician Events No recent Security Events currently on file CRITERIA MET - [facility] - Has Care Guidelines - PDMP CARE PROVIDERS Benson Castellon Internal Medicine: Pulmonary Disease 07/02/2018-Current PHONE: Unknown HOLLY DE LA GARZA [facility] 05/22/2018-Current PHONE: Unknown Conrad has no Care Guidelines for this patient. Care History Medical/Surgical 07/02/2018 [facility] - Patient is currently established with [facility]. If patient is seen in the ED during business hours. Please contact [facility]Ws at [facility]. Care Recommendation: This patient has had 5 or more Emergency Department visits in the last 12 months.\T\nbsp; Patient requires education on the scope and purpose of the ED as an acute care provider not a Primary Care Provider and should not be utilized for chronic conditions.\T\nbsp; These are guidelines and the provider should exercise clinical judgment when providing care. E.D. VISIT COUNT (12 MO.) 7 [facility] TOTAL 7 NOTE: Visits indicate total known visits. ED/UCC VISIT TRACKING (12 MO.) 12/15/2018 19:01 [facility] [place] TYPE: Emergency COMPLAINT: - POSS KIDNEY STONE 07/29/2018 09:20 [facility] [place] TYPE: Emergency COMPLAINT: - LIGHTHEADED/BACK PAIN/NO INJURY DIAGNOSES: - Essential (primary) hypertension - Anxiety disorder, unspecified - [facility] [place] drug therapy - Gastro-esophageal reflux disease without esophagitis - Allergy status to other drugs, medicaments and biological substances status - Low back pain 07/25/2018 21:[address] 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 [place] TYPE: Emergency COMPLAINT: - DIZZINESS DIAGNOSES: - Essential (primary) hypertension - Migraine, unspecified, not intractable, without status migrainosus - [facility] [place] [facility] drug therapy - Dizziness and giddiness - Panic disorder [episodic paroxysmal anxiety] - Adverse effect of beta-adrenoreceptor antagonists, initial encounter - Hypotension, unspecified 06/19/2018 13:45 [facility] [place] [facility] [place] TYPE: Emergency COMPLAINT: - BLOOD PRESSURE PROBLEM/DIZZINESS DIAGNOSES: - Migraine, unspecified, not intractable, without status migrainosus - Other [place] drug therapy - Palpitations - Dizziness and giddiness - Hypokalemia - Essential (primary) hypertension 05/18/2018 07:59 [facility] [place] TYPE: Emergency COMPLAINT: - BLOOD PRESSURE ISSUE DIAGNOSES: - Other [place] drug therapy - Chronic sinusitis, unspecified - Essential (primary) hypertension - Headache 05/13/2018 22:31 [facility] [place] TYPE: Emergency COMPLAINT: - HEADACHE DIAGNOSES: - Essential (primary) hypertension - 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
[2018-12-15] MEDS ORDERED: NEURONTIN100 MG (19:16)
[2018-12-15] MEDS ORDERED: DICLOFENAC SODI75 MG PO (22:01)
[2018-12-15] MEDS ORDERED: CYCLOBENZAPRINE10 MG PO (22:01)
== END 2018-12-15 22:12 | disposition home or self-care (01) ==
LOC: ED 19:01
DX: R10.9 Unspecified abdominal pain (principal); I10 Essential (primary) hypertension; G43.909 Migraine, unspecified, not intractable, without status migrainosus; F41.9 Anxiety disorder, unspecified; Z88.8 Allergy status to other drugs, medicaments and biological substances; Z79.899 Other long term (current) drug therapy
CPT/HCPCS: 74176; 80053; 81001; 84703; 85025; 96361; 96374; 96375; 99284-25; J1885; J2405; J7030

== ENCOUNTER 2019-05-11 16:36 | Emergency (ER) | payer SELFPAY ==
[~2019-05-11] VITALS: Ht 154.9 cm; Wt 78.2 kg
[~2019-05-11 16:36] MED LIST changes: +DICLOFENAC SODI75 MG PO; +NEURONTIN100 MG
--- OUTSIDE RECORDS SUMMARY | 2019-05-11 16:38 | XMS ---
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 Automobile Parker Events No recent Security Events currently on file CRITERIA MET - [facility] - Has Care Guidelines - PDMP CARE PROVIDERS Benson Castellon Internal Medicine: Pulmonary Disease 07/02/2018-Current PHONE: Unknown HOLLY DE LA GARZA [facility] 05/22/2018-Current PHONE: Unknown Conrad has no Care Guidelines for this patient. Care History Medical/Surgical 07/02/2018 [facility] - Patient is currently established with [facility]. If patient is seen in the ED during business hours. Please contact CHWs at [facility]. Care Recommendation: This patient has had [...] providing care. E.D. VISIT COUNT (12 MO.) 8 TOMAS Taylor TOTAL 8 NOTE: Visits indicate total known visits. ED/UCC VISIT TRACKING (12 MO.) 05/11/2019 16:36 [facility] Drew [place] TYPE: Emergency COMPLAINT: - ABD PAIN 12/15/2018 19:01 [facility] Drew [place] TYPE: Emergency COMPLAINT: - POSS KIDNEY STONE DIAGNOSES: - Anxiety disorder, unspecified - Migraine, unspecified, not intractable, without status migrainosus - Allergy status to other drugs, medicaments and biological substances status - Essential (primary) hypertension - Unspecified abdominal pain - Other long term care social worker (current) drug therapy 07/29/2018 09:20 [facility] Drew [place] TYPE: Emergency COMPLAINT: - LIGHTHEADED/BACK PAIN/NO INJURY DIAGNOSES: - Essential (primary) hypertension - Anxiety disorder, unspecified - Other long term care social worker (current) drug therapy - Gastro-esophageal reflux disease without esophagitis - Allergy status to other drugs, medicaments and biological substances status - Low back pain 07/25/2018 21:16 [facility] Drew [place] TYPE: Emergency COMPLAINT: - BACK SPASM DIAGNOSES: - Other chronic pain - Other long term care social worker (current) drug therapy - Essential (primary) hypertension - Low back pain 07/01/2018 16:54 [facility] Drew [place] TYPE: Emergency COMPLAINT: - DIZZINESS DIAGNOSES: - Essential (primary) hypertension - Migraine, unspecified, not intractable, without status migrainosus - Other assisted (current) drug therapy - Dizziness and giddiness - Panic disorder [episodic paroxysmal anxiety] - Adverse effect of beta-adrenoreceptor antagonists, initial encounter - Hypotension, unspecified 06/19/2018 13:[address] [facility] Strum HAzar Victor [place] TYPE: Emergency COMPLAINT: - BLOOD PRESSURE PROBLEM/DIZZINESS DIAGNOSES: - Migraine, unspecified, not intractable, without status migrainosus - Other assisted (current) drug therapy - Palpitations - Dizziness and giddiness - Hypokalemia - Essential (primary) hypertension 05/18/2018 07[facility] [place] [facility] COMPLAINT: - BLOOD PRESSURE ISSUE DIAGNOSES: - Other assisted (current) drug therapy - Chronic sinusitis, unspecified - Essential (primary) hypertension - Headache 05/13/2018 22:[address] [facility] Strum KlaiaAzar Victor [place] TYPE: Emergency COMPLAINT: - HEADACHE DIAGNOSES: - Essential (primary) hypertension - Other long term care social worker (current) drug therapy - Headache - Acute sinusitis, unspecified INPATIENT VISIT TRACKING (12 MO.) No inpatient visits to display in this time frame [id number]
== END 2019-05-11 19:22 | disposition home or self-care (01) ==
LOC: ED 16:36
DX: R10.9 Unspecified abdominal pain (principal); R11.2 Nausea with vomiting, unspecified; I10 Essential (primary) hypertension
CPT/HCPCS: 74177; 80053; 81001; 83690; 84703; 85025; 99284-25; J1885; J2405; J2765; Q9967

== ENCOUNTER 2020-09-24 09:51 | Emergency (ER) | payer BC, OTHER ==
[~2020-09-24] VITALS: Ht 154.9 cm; Wt 80.5 kg
--- OUTSIDE RECORDS SUMMARY | 2020-09-24 09:54 | XMS ---
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 Outreach Nurse Events No recent Security Events currently on file CRITERIA MET - [facility] - Has Care Guidelines CARE PROVIDERS HOLLY DE LA GARZA [facility] 05/22/2018-Current PHONE: Unknown LELAND SHERMAN Internal Medicine: Pulmonary Disease 07/02/2018-Current PHONE: Unknown ROSA YEUNG Nurse Practitioner 05/12/2019-Current PHONE: [phone] Conrad has no Care Guidelines for this patient. Care History Medical/Surgical 05/12/2019 [facility] - PATIENT UTILIZES [facility]-PLEASE REVIEW [place] PDMP BEFORE PROVIDING DISCHARGE NARCOTIC MEDICATIONS. 07/02/2018 [facility] - Patient is currently established with [facility]. If patient is seen in the ED during business hours. Please contact CHWs at [facility]. Care Recommendation: This patient has had 5 [...] providing care. E.D. VISIT COUNT (12 [address] [facility]. TOTAL 1 NOTE: Visits indicate total known visits. ED/UCC VISIT TRACKING (12 MO.) 09/24/2020 09:[address] [facility] [place] TYPE: Emergency COMPLAINT: - ABD PAIN INPATIENT VISIT TRACKING (12 MO.) No inpatient visits to display in this time frame [id number]
[2020-09-24] MEDS ORDERED: PREGABALIN75 MG PO (10:19)
[2020-09-24] MEDS ORDERED: ETODOLAC500 MG PO (10:21)
[2020-09-24] MEDS ORDERED: PROZAC40 MG PO (10:22)
[2020-09-24] MEDS ORDERED: PROMETHAZINE HC25 M1 PO (12:19)
[2020-09-24] MEDS ORDERED: ONDANSETRON ODT8 MG PO (12:19)
[2020-09-24] MEDS ORDERED: OMEPRAZOLE20 MG PO (12:19)
== END 2020-09-24 12:30 | disposition home or self-care (01) ==
LOC: ED 09:51
DX: K29.00 Acute gastritis without bleeding (principal); I10 Essential (primary) hypertension; G43.909 Migraine, unspecified, not intractable, without status migrainosus; F41.9 Anxiety disorder, unspecified; Z87.891 Personal history of nicotine dependence; Z88.8 Allergy status to other drugs, medicaments and biological substances; Z79.899 Other long term (current) drug therapy
CPT/HCPCS: 80053; 81001; 83690; 84703; 85025; 96374; 96375; 99284-25; J1885; J2405; J7030

== ENCOUNTER 2021-06-11 10:06 | Emergency (ER) | payer BC ==
[~2021-06-11] VITALS: Ht 154.9 cm; Wt 80.9 kg
[~2021-06-11 10:06] MED LIST changes: +ETODOLAC500 MG PO; +PREGABALIN75 MG PO; +PRILOSEC OTC20 MG PO; +PROZAC40 MG PO; +ZITHROMAX250 MG PO
--- OUTSIDE RECORDS SUMMARY | 2021-06-11 10:08 | XMS ---
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 Events No recent Security Events currently on file CRITERIA MET - [facility] - [facility] Guidelines - PDMP CARE PROVIDERS HOLLY DE LA GARZA [facility] 05/22/2018-Current PHONE: [phone] LELAND SHERMAN Internal Medicine: Pulmonary Disease 07/02/2018-Current PHONE: Unknown DARIN APPIAH Internal Medicine Current PHONE: [phone] FRANCK WELCH [facility] Current PHONE: Unknown ROSA YEUNG Nurse Practitioner 05/12/2019-[facility] PHONE: [phone] [facility] [facility] 09/27/2020-[facility] PHONE: [phone] Conrad has no Care Guidelines for this patient. Care History Medical/Surgical 09/27/2020 [facility] - PATIENT IS [facility] ELIGIBLE, \T\middot;\T\nbsp; PLEASE REFER PATIENT TO [facility] FOR NON EMERGENT MEDICAL NEEDS. \T\middot;\T\nbsp; [facility] CAN SEE PATIENTS SAME DAY FOR APTS IF PATIENT CALLS FIRST THING IN THE MORNING. E.D. VISIT COUNT (12 MO.) 3 [facility] TOTAL 3 NOTE: Visits indicate total known visits. 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
--- NOTE | 2021-06-11 17:36 | EKG ---
[facility] [address] [place], [place] [address] Signed Normal sinus rhythm T wave abnormality, consider anterior ischemia Abnormal ECG When compared with ECG of 01-JUL-2018 17:28, No significant change was found Confirmed by NAPOLEON CROSS DO ([id number]) on 06/11/2021 5:36:38 PM Electronically Signed By: NAPOLEON CROSS DO 06/11/21 1736 PATIENT NAME: JAQUELIN BUCKLEY CHLOÉ Electrocardiogram DATE OF : 79 PHYSICIAN: NAPOLEON CROSS DO REPORT #: [id number] REPORT IS CONFIDENTIAL AND NOT TO BE RELEASED WITHOUT AUTHORIZATION
== END 2021-06-11 12:31 | disposition home or self-care (01) ==
LOC: ED 10:06
DX: U07.1 COVID-19 (principal); I10 Essential (primary) hypertension; G43.909 Migraine, unspecified, not intractable, without status migrainosus; Z88.8 Allergy status to other drugs, medicaments and biological substances; Z79.899 Other long term (current) drug therapy
CPT/HCPCS: 71045; 80053; 84484; 85025; 93005; 93010; 96374; 99285-25; J1885; J7040; M0243; Q0244

== ENCOUNTER 2021-09-23 12:53 | Emergency (ER) | payer BC ==
[~2021-09-23] VITALS: Ht 154.9 cm; Wt 80.9 kg
--- OUTSIDE RECORDS SUMMARY | 2021-09-23 12:56 | XMS ---
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 Superintendent House Events No recent Security Events currently on file CRITERIA MET - PDMP - [facility] - Has [facility] CARE PROVIDERS HOLLY DE LA GARZA [facility] 05/22/2018-Current PHONE: [phone] LELAND SHERAMN Internal Medicine: Pulmonary Disease 07/02/2018-Current PHONE: Unknown ROSA YEUNG Nurse Practitioner 05/12/2019-Current PHONE: [phone] CLAIRE YAP [facility] Current PHONE: Unknown [facility]/Center 09/27/2020-[facility] PHONE: [phone] Conrad has no Care Guidelines for this patient. Care History Medical/Surgical 09/27/2020 [facility] - PATIENT IS [facility] ELIGIBLE, \T\middot;\T\nbsp; PLEASE REFER PATIENT TO [facility] FOR NON EMERGENT MEDICAL NEEDS. \T\middot;\T\nbsp; [facility] CAN SEE PATIENTS SAME DAY FOR APTS IF PATIENT CALLS FIRST THING IN THE MORNING. E.D. VISIT COUNT (12 MO.) 4 [facility]. TOTAL 4 NOTE: Visits indicate total known visits. 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
[2021-09-23] MEDS ORDERED: FENOFIBRATE160 MG PO (14:14)
[2021-09-23] MEDS ORDERED: CITALOPRAM HBR40 MG PO (14:14)
[2021-09-23] MEDS ORDERED: HYDROXYZINE HCL25 MG PO (14:18)
[2021-09-23] MEDS ORDERED: CHLORDIAZEPOXID25 MG PO (15:18)
== END 2021-09-23 15:45 | disposition home or self-care (01) ==
LOC: ED 12:53
DX: F10.239 Alcohol dependence with withdrawal, unspecified (principal); I10 Essential (primary) hypertension; G43.909 Migraine, unspecified, not intractable, without status migrainosus; Z88.8 Allergy status to other drugs, medicaments and biological substances; Z79.899 Other long term (current) drug therapy
CPT/HCPCS: 80053; 81001; 85025; 85610; 96374; 96375; 99284-25; J2060; J3411; J7030

== ENCOUNTER 2021-09-26 11:02 | Emergency (ER) | payer BC, OTHER ==
[~2021-09-26] VITALS: Ht 154.9 cm; Wt 80.9 kg
[~2021-09-26 11:02] MED LIST changes: +CHLORDIAZEPOXID25 MG PO; +CITALOPRAM HBR40 MG PO; +FENOFIBRATE160 MG PO; +HYDROXYZINE HCL25 MG PO
--- OUTSIDE RECORDS SUMMARY | 2021-09-26 11:10 | XMS ---
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 Lease Analyst Events No recent Security Events currently on file CRITERIA MET - [facility] - 2 Visits in 30 Days - [facility] - Has Care Guidelines CARE PROVIDERS HOLLY DE LA GARZA [facility] 05/22/2018-Current PHONE: [phone] LELAND SHERMAN Internal Medicine: Pulmonary Disease 07/02/2018-Current PHONE: Unknown ROSA YEUNG Nurse Practitioner 05/12/2019-Current PHONE: [phone] CLAIRE YAP [facility] Current PHONE: Unknown EMILY [facility]/Center 09/27/2020-[facility] PHONE: [phone] Conrad has no Care Guidelines for this patient. Care History Medical/Surgical 09/27/2020 [facility] - PATIENT IS [facility] ELIGIBLE, PLEASE REFER PATIENT TO [facility] FOR NON EMERGENT MEDICAL NEEDS. [facility] CAN SEE PATIENTS SAME DAY FOR APTS IF PATIENT CALLS FIRST THING IN THE MORNING. E.D. VISIT COUNT (12 MO.) [address] [place] [address] TOTAL 4 NOTE: Visits indicate total known visits. 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
[2021-09-26] MEDS ORDERED: ONDANSETRON ODT8 MG PO (13:30)
[2021-09-26] MEDS ORDERED: CHLORDIAZEPOXID25 MG PO (13:30)
== END 2021-09-26 14:50 | disposition home or self-care (01) ==
LOC: ED 11:02
DX: F10.239 Alcohol dependence with withdrawal, unspecified (principal); I10 Essential (primary) hypertension; G43.909 Migraine, unspecified, not intractable, without status migrainosus; Z88.8 Allergy status to other drugs, medicaments and biological substances; Z79.899 Other long term (current) drug therapy
CPT/HCPCS: 80048; 96374; 96375; 99284-25; J2060; J2405; J3411; J7030

== ENCOUNTER 2021-10-07 19:14 | Inpatient (IN) | payer BC, OTHER ==
[~2021-10-07] VITALS: Ht 154.9 cm; Wt 79.3 kg
--- OUTSIDE RECORDS SUMMARY | 2021-10-07 19:16 | XMS ---
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 Events No recent Security Events currently on file CRITERIA MET - [facility] - Has Care Guidelines - PDMP - [facility] - 2 Visits in 30 Days CARE PROVIDERS HOLLY DE LA GARZA [facility] 05/22/2018-Current PHONE: [phone] LELAND SHERMAN Internal Medicine: Pulmonary Disease 07/02/2018-Current PHONE: Unknown ROSA YEUNG Nurse Practitioner 05/12/2019-Current PHONE: [phone] CLAIRE YAP [facility] Current PHONE[facility] PHONE: [phone] Conrad has no Care Guidelines for this patient. Care History Medical/Surgical 09/27/2020 [facility] - PATIENT IS [facility] ELIGIBLE, PLEASE REFER PATIENT TO [facility] FOR NON EMERGENT MEDICAL NEEDS. [facility] CAN SEE PATIENTS SAME DAY FOR APTS IF PATIENT CALLS FIRST THING IN THE MORNING. E.D. VISIT COUNT (12 MO.) [address] [place] [address]. TOTAL 5 NOTE: Visits indicate total known visits. ED/UCC VISIT TRACKING (12 MO.) 10/07/2021 19:15 [facility] Drew [place] TYPE: Emergency COMPLAINT: - POSS OVERDOSE 09/26/2021 11:03 TOM[facility] Drew [place] TYPE: Emergency COMPLAINT: - SHAKY, BLURRED VISION, VOMITING, RAPID HEART RATE DIAGNOSES: - Other correction (current) drug therapy - Migraine, unspecified, not intractable, without status migrainosus - Alcohol dependence with withdrawal, unspecified - Essential (primary) hypertension - Allergy status to other drugs, medicaments and biological substances 09/23/2021 12:54 TOM[facility] Drew [place] TYPE: Emergency COMPLAINT: - POSS DETOX DIAGNOSES: - Strain of muscle, fascia and tendon of lower back, initial encounter - Exposure to other specified factors, initial encounter - Other correction (current) drug therapy - Alcohol dependence with withdrawal, unspecified - Essential (primary) hypertension - Migraine, unspecified, not intractable, without status migrainosus - Allergy status to other drugs, medicaments and biological substances 06/11/2021 10:06 TOM[facility] Drew [place] TYPE: Emergency COMPLAINT: - COVID +, FLU SYMPTOMS DIAGNOSES: - COVID-19 - Migraine, unspecified, not intractable, without status migrainosus - Allergy status to other drugs, medicaments and biological substances - Essential (primary) hypertension - Other manager terminal (current) drug therapy 01/06/2021 09:03 TOMAS Drew [place] TYPE: Emergency COMPLAINT: - ABDOMINAL PAIN DIAGNOSES: - Epigastric pain - Essential (primary) hypertension - Other manager terminal (current) drug therapy - Migraine, unspecified, not intractable, without status migrainosus - Pure hyperglyceridemia - Pneumonia, unspecified organism - Allergy status to other drugs, medicaments and biological substances INPATIENT VISIT TRACKING (12 MO.) No inpatient visits to display in this time frame [id number]
--- NOTE | 2021-10-08 02:00 | NUR ---
PT ARRIVED TO CCU, RASS +1, SEDATION INCREASED DURING TRANSFER FOR PT SAFETY, RT MANAGING ETT, PT TRANSFERRED VIA DRAW SHEET TO CCU BED, MEDICATIONS VERIFIED, VITALS BEING TAKEN, RESTRAINTS TIED TO CCU BED, HEAD TO TOE EXAM COMPLETED, PLAN OF CARE DISCUSSED WITH DR SEARS, SEDATION REMAINS INCREASED TO KEEP RASS OF -3, MILD HYPOTENSION, LEVOPHED RESTARTED AT 2.5 FOR BLOOD PRESSURE SUPPORT, WILL ATTEMPT TO WEAN OFF SEDATION AND LEVOPHED WHEN APPROPIATE AND SAFE FOR PT
--- NOTE | 2021-10-08 02:55 | NUR ---
PROPOFOL CURRENTLY AT 50 MCG/KG/MIN, VERSED AT 5 MG/HR, LEVOPHED AT 2.5 MCG/MIN, FENTANYL AND PRECEDEX TURNED OFF, RASS -3, PT RESTING COMFORTABLY, OG TO LOW INTM SUCTION, DE [place] DRAINING, CENTRAL LINE DRESSING CDI, VITALS Q15 MINS, HOB AT 30 DEGREES, RESTRAINTS IN PLACE
--- NOTE | 2021-10-08 03:56 | NUR ---
SPOKE WITH POISON CONTROL ON PHONE, RN'S DISCUSSED POSSIBLE RUBBING ALCOHOL INGESTION. SYPTOMS WOULD INCLUDE HYPOTENSION, BUILDING SPECIALIST DEPRESSION, ASPIRATION, RESPIRATORY DEPRESSION, BLOODY STOOLS, GI UPSET, POISON CONTROL ALSO STATED RUBBING ALCOHOL HAS INCREASED INTOXICATION EFFECTS WITH SMALLER AMOUNT INGESTED. BASED ON PTS SYMPTOMS, THEY RECOMMENED LOOKING AT THE ACETONE LEVEL ON LABS TO DETERMINE IF RUBBING ALCOHOL HAS BEEN INGESTED DUE TO THE TYPE OF MOUTHWASH PT CONSUMED DID NOT HAVE ANY ALCOHOL IN IT AND WOULD UNLIKELY PRESENT WITH CURRENT SIGNS AND SYMPTOMS
--- NOTE | 2021-10-08 04:48 | NUR ---
SPOKE WITH DR SEARS REGARDING SEDATION NEEDS FOR PT. FENTANYL AND VERSED DRIP HAD BEEN DISCONTINUED, VALUM IV PUSHES ADDED. MEDICATIONS GIVEN PER NOV HOWEVER PT REMAINS AT A RASS OF +2. REQUESTED ADDITONAL SEDATION, DR SEARS STATED TO INCREASE VALUM PUSHES TO 20 MG Q30 MINS PRN
--- NOTE | 2021-10-08 05:44 | NUR ---
PT RESTLESS, PROPOFOL INCREASED TO 60 MCG/KG/MIN AND 20MG VALUM IV PUSH GIVEN, RASS STILL REMAINS A +1
--- NOTE | 2021-10-08 06:21 | NUR ---
AM EKG DONE AND PLACED IN CHART.
--- NOTE | 2021-10-08 07:46 | NUR ---
PATIENT VERY RESTLESS IN THE BED. BITING DOWN ON THE ETT, MOVING HANDS TOWARDS THE TUBING. PT WILL SQUEEZE HANDS WHEN ASKED. RASS IS CURRENTLY +2. PROPOFOL TITRATED UP FOR SEDATION. BP NOW 117/76 (86). VENT SETTINGS ARE VC/AC 18, VT 380, PEEP 5, FI02 40%. PT HAS AN IJ ON RIGHT SIDE OF NECK, TRIPLE LUMEN. SP02 IS CURRENTLY 97%. PT IS NOTED TO BE SHAKING HER HEAD NO, BUT DOES NOT OPEN EYES AT THIS TIME. WRIST RESTRAINTS REMAIN INTACT BILATERALLY AND RESECURED PATIENT IS SLIDING DOWN IN BED. LEVOPHED HAS BEEN OFF FOR A WHILE NOW. IVF CONTINUE AT 125 ML/HR. OG PUTTING OUT YELLOW/GREEN THIN LIQUID.
--- NOTE | 2021-10-08 09:29 | NUR ---
PATIENT REMAINS RESTING AT THIS TIME. PROPOFOL TITRATED DOWN TO 65 MCG/KG/MIN AT THIS TIME. DISCUSSED WITH MD AND WILL PLAN FOR SEDATION VACATION AND WEANING TRIALS THIS AM. CONTINUE TO MONITOR CLOSELY.
--- NOTE | 2021-10-08 09:59 | NUR ---
WORKING ON TITRATING MEDICATIONS DOWN FOR SEDATION VACATION. PHYS THERAPY IN ROOM WORKING WITH PATIENT. PT IS FOLLOWING COMMANDS FOR PHYS THERAPY. PROPOFOL CURRENTLY AT 40 MCG/KG/MIN.
--- NOTE | 2021-10-08 10:51 | NUR ---
PATIENT FAILED WEANING TRIAL AND SEDATION TRIAL DUE TO RAPID RR. PT WAS BREATHIGN 50-60s AND NOT TAKING ADEQUATE BREATHS. PT SEEMED ANXIOUS AND WOULD NOT FOLLOW COMMANDS WELL. PT GIVEN 5 MG IV VALIUM TO ATTEMPT TO CALM HER, BUT STILL NOT SAFE TO EXTUBATE. DR. SEARS IN [place] VALUATING HER AND RT AT BEDSIDE. PATIENT NOW BACK ON VENT SETTINGS OF VC/AC 18, VT 380, PEEP 5, FI02 40%. PT GIVEN ADDITIONAL 15 MG IV VALIUM FOR SEDATION. PT NOW BACK ON PROPOFOL AND TITRATING TO KEEP PATIENT AT A -1 RASS. WRIST RESTRAINTS REMAIN INTACT BILATERALLY.
--- NOTE | 2021-10-08 11:15 | NUR ---
PUMP ALARMING, THIS RN TO ROOM. PT ALERT, OPENING EYES AND GRABBING FOR TUBES. PROPOFOL BOTTLE EMPTY, NEW BOTTLE HUNG. MICHAEL, RAJINDER, TO BEDSIDE AND INCREASES DOES TO 80MCG/KG/MIN. PTS RNELROY, TO BEDSIDE, UPDATED ON INTERVENTIONS. NO ADDITIONAL NEEDS AT THIS TIME.
--- NOTE | 2021-10-08 12:05 | NUR ---
PATIENT'S CALLED AND GIVEN AN UPDATE ON HER STATUS. REQUESTED THAT HE BRING IN ALL OF PATIENT'S MEDICATION BOTTLES. EARLIER AROUND 1140, PATIENT WAS MORE AWAKE AND INDICATING THAT SHE WAS TRYING TO WRITE A NOTE TO THIS RN. PT GIVEN A CLIPBOARD AND A MARKER. PT WAS ABLE TO WRITE SOME NOTES TO THIS RN, INCLUDING "MY FEEDING TUBE" "MOUTHWASH" "BEER" "COORS" AND WHEN ASKING THE PATIENT IF SHE TOOK ANY MEDICATIONS, SHE NODS HEAD YES. PATIENT THEN WRITES "CITALOPRAM" AND WHEN ASKED HOW MANY SHE TOOK, SHE WROTE "40". PATIENT ASKED IF SHE TOOK ANYTHING ELSE BESIDE, AND SHE THEN WROTE "ATARAX" AND "25" WHEN ASKED HOW MANY. PATIENT THEN ASKED, "WERE YOU TRYING TO HARM YOURSELF?" AND SHE WROTE "YES." PATIENT THEN ASKED, "ARE YOU STILL WANTING TO HURT YOURSELF?" AND SHE CIRCLES THE WORD "YES" ON THE PAPER. DISCUSSED WITH PATIENT PLAN OF CARE, AND HOW WE WILL KEEP HER SAFE AND TRY AND HELP HER MUCH WE CAN. PT TEARFUL. PT ALSO POINTING AT HER ETT AND MAKING A SQUEEZING MOTION WITH HER HANDS. CONTINUE TO MONITOR CLOSELY.
--- NOTE | 2021-10-08 13:15 | NUR ---
PATIENT'S LEAVES AT THIS TIME. HE WAS TEARFUL WHEN HE WAS HERE, AND GAVE SOME MORE INFORMATION REGARDING THE PATIENT'S HISTORY. HE STATES SHE HADN'T BEEN DRINKING IN THE LAST 2 WEEKS UNTIL YESTERDAY TO HIS KNOWLEDGE. HE STATES SHE HAS BEEN REACHING OUT FOR SUPPORT AND TRYING TO GET INTO A REHAB FOR HER DRINKING. HE ALSO STATES SHE STRUGGLES WITH LOW BACK PAIN AND HAS A "BAD DISC" IN HER BACK, AND GETS A HOLD OF PAIN MEDICATIONS SOMETIMES FROM FRIENDS BUT DOESN'T HAVE A PRESCRIPTION FOR HERSELF. ALL OF PATIENT'S MEDICATIONS THAT HE BROUGHT IN WERE GIVEN TO PHARMACY FOR THEM TO LOOK OVER AND MAYBE FIGURE OUT HOW MANY ARE MISSING. PATIENT STARTED ON PRECEDEX GTT IN ADDITION TO THE PROPOFOL AND WILL BE TITRATED ACCORDINGLY. [facility] CALLED AND GIVEN AN UPDATE ON PATIENT'S OVERDOSE HISTORY THAT WAS RECENTLY FOUND OUT. CONTINUE TO MONITOR.
--- NOTE | 2021-10-08 14:38 | NUR ---
PATIENT REMAINS RESTING AT THIS TIME. EKG DONE PER RT. BED BATH GIVEN AND LINEN CHANGED. PRN VALIUM FOR AGITATION. CURRENT PROPOFOL GTT INFUSING AT 65 MCG/KG/MIN AND PRECEDEX AT 0.4 MCG/KG/HR. CONTINUE TO MONITOR CLOSELY.
--- NOTE | 2021-10-08 16:26 | NUR ---
PT AWAKE, PULLING AT RESTRAINTS, MOVING HANDS UP TO ETT, 20MG IV VALIUM GIVEN. RN REMAINS AT BEDSIDE.
--- NOTE | 2021-10-08 16:59 | NUR ---
PT SUDDENLY IS MOVING AND PULLING AT RESTRAINTS, BENDING HEAD DOWN TO HANDS. PT HAS BECOME AGITATED, FACE CLENCHED, HANDS CLENCHED AND PULLING AT RESTRAINTS. INITIALLY PROPOFOL TURNED UP TO 40MCG/KG/MIN WITH NO EFFECT. 20MG IV VALIUM GIVEN WITH NO EFFECT NOTED. PT LOOKS ANXIOUS, RESP RATE INCREASED, WITH CHANGE IN RESP PATTERN ALSO NOTED, MORE ABDOMINAL BREATHING, SPO2 REMAIN 90'S. INLINE SUCTION AND ORAL SUCTION DONE, WITH RETURN OF SMALL AMOUNT OF MILD SECRETIONS. RESP RATE UP TO 40'S, OVERALL PT VERY AGITATED AND ANXIOUS LOOKING, NOT FOLLOWING ANY CAMMANDS. DURING THIS EPISODE, APPROX 45 MINUTES, PROPOFOL AND PRECEDEX WERE TITRATED UP, PROPOFOL CURRENTLY AT 75MCG/KG/MIN AND PRECEDEX 0.6MCG/KG/HOUR. SECOND DOSE OF 20MG IV VALIUM GIVEN AND PT FINALLY CALMS AND LIES BACK DOWN WITH EYES CLOSED.
--- NOTE | 2021-10-08 18:00 | NUR ---
[facility] ON THE PHONE AND GIVING RECOMMENDATIONS TO OPTIMIZE POTASSIUM LEVEL AND MAG LEVEL, WELL CHECK ANOTHER ASPIRIN LEVEL. DR. SEARS NOTIFIED AND ORDERS REC'D. PT REMAINS ON PROPOFOL GTT AT 50 MCG/KG/MIN AND PRECEDEX GTT AT 0.4 MCG/KG/HR AT THIS TIME. URINE OUTPUT HAS ALSO STARTED TO DECREASE AND WILL BE MONITORED CLOSELY.
--- NOTE | 2021-10-08 18:45 | NUR ---
PATIENT MORE AWAKE AGAIN AT THIS TIME AND MOVING AROUND IN THE BED, SEEMS UNCOMFORTABLE. PT TURNING ONTO HER RIGHT SIDE. ASKED PATIENT IF HER BACK IS HURTING AND SHE NODS YES. HELPED PATIENT TO PLACE A PILLOW UNDER HER LOW BACK/BUTTOCK AREA. PT GRIMACING AND ALSO GRABBING AT HER STOMACH AND SEEMS TO BE IN DISCOMFORT. PT SOMEWHAT REACHING FOR THE VENT AND USING HER HAND IN A SQUEEZING MOTION. PT'S NOW IN ROOM AND ATTENTIVE TO PATIENT.
--- NOTE | 2021-10-08 20:00 | NUR ---
PT IS RESTLESS AND ATTEMPTING TO WRITE, ASKING FOR HER PHONE AND GAMES TO PLAY BUT DRIFTS IN AND OUT OF ACTIVITY. PT DOES NOT OPEN EYES OF FOLLOW COMMANDS. PT REACHES FOR ETT, FACIAL GRIMACING, GAURDS ABDOMEN. INCREASED PROPOFOL INFUSION TO 60 MCG/KG/MIN, DECREASED RESTLESSNESS AND VISUAL PAIN SIGNS. DISCUSSED PAIN CONTROL WITH DR. SEARS AND WILL START TORADOL PUSHES AND DECREASE PROPOFOL INDICATED.
--- NOTE | 2021-10-08 21:20 | NUR ---
UPDATED DEYVI WITH POISON CONTROL ON MOST RECENT EKG, VITALS, AND SEDATION. 2100 CMP AND SALICYLATE LEVELS DRAWN AND WILL UPDATE POISON CONTROL WITH RESULTS WHEN AVAILABLE. NO FURTHER RECOMMENDATIONS AT THIS TIME.
--- NOTE | 2021-10-08 22:24 | NUR ---
PT IS RESTING QUIETLY WITH RASS SCORE -2 AFTER ADMINISTRATION OF TORADOL. PROPOFOL DECREASED TO 45 MCG/KG/MIN, PRECEDEX REMAINS AT 0.6 MCG/KG/HR. WILL CONTINUE TO WEAN SEDATION PT TOLERATES.
--- NOTE | 2021-10-08 23:49 | NUR ---
PT BECAME RESTLESS AND DIAPHORETIC WITH INCREASED AIRWAY PRESSURES. AIR LEAK HEARD AND ETT CUFF NOT HOLDING AIR. RT NOTIFIED AND AFTER TROUBLE SHOOTING FOUND THAT ETT CUFF IS INTACT, HOWEVER AIR LEAKING OUT OF GAS ENGINEER BALLOON CUFF. GAS ENGINEER PORT WAS CLAMPED AND AIR LEAK HAS RESOLVED. DR. SEARS AWARE AND PLAN FOR ETT CHANGE TOMORROW IF NOT EXTUBATED.
--- NOTE | 2021-10-09 00:20 | NUR ---
UPDATED DEYVI WITH POISON CONTROL ON RESULTED LABS. RECOMMEND REPEAT MORNING EKG, ORDER PLACED.
--- NOTE | 2021-10-09 00:28 | NUR ---
PT REPOSITIONED, ORAL CARE COMPLETED. PT IS DIAPHORETIC, AFEBRILE. RASS -1 AND TOLERATING VENT. UPPER AIRWAYS CLEAR WITH DIMINISHED BASES.
--- NOTE | 2021-10-09 01:45 | NUR ---
DR. SEARS NOTIFIED OF DECREASED UOP OF 18-25mL/HR. INCREASED IVF TO 125 mL/HR PER DR. SEARS.
--- NOTE | 2021-10-09 02:11 | NUR ---
ET tube exchange done for leaking pilot can router balloon. Dr. Rm called before procedure and approved. ER Dr. Ballesteros also notified when procedure was to be done and when completed. CXR done to conform appropiate placement. Right after exchanges etCO2 was detected at 40 with bilateral breath sounds.
--- NOTE | 2021-10-09 02:23 | NUR ---
PT'S ETT NOTED TO BE LEAKING AIR AGAIN. PRIMARY MD DR. SEARS, ER MD DR. BERMUDEZ, AND RAJINDER JUAN IN AGREMENT FOR RT TO CHANGE ETT. ETT CHANGE COMPLETED WITHOUT COMPLICATION AND X-RAY ORDERED. PT'S [place] CATH NOTED TO BE LEAKING, [place] CATH CHANGES. PT'S CENTRAL LINE DRESSING AND STAT-LOC LIFTING. STAT LOC AND CENTRAL LINE CHANGED. PT GIVEN 10 MG DIAZEPAM TO ASSIST WITH RESTLESSNESS DURING CARES. WILL CONTINUE TO MONITOR.
--- NOTE | 2021-10-09 04:30 | NUR ---
UOP SLIGHTLY IMPROVED SINCE INCREASED IVF, 30 mL THIS HOUR. PT SBP HAS ALSO INCREASED FROM LOW 90S TO 110-120s. LUNGS DIMINISHED THROUGHOUT WITH COARSE LUNG SOUNDS RUL. BOWEL TONES HYPOACTIVE THROUGHOUT NIGHT. PT IS TOLERATING VENT AND PRN DIAZEPAM ADMINISTERED DURING PERIODS OF INCREASED REACHING FOR ETT. WILL CONTINUE TO MONITOR.
--- NOTE | 2021-10-09 04:43 | NUR ---
PT REPOSITIONED AND ORAL CARE DONE
--- NOTE | 2021-10-09 08:03 | NUR ---
IN PATIENT'S ROOM FOR ASSESSMENT AND VITALS THIS AM. PT REMAINS ON VENT WITH SETTINGS OF VT 380, VC/AC 18, PEEP 5, AND FI02 35%. PT AWAKENS AND STARTS TO STIR WITH VOICE OF STAFF IN ROOM. PT COUGHING AGAINST VENT. ORAL SUCTION PROVIDED, WELL DEEP SUCTION. SP02 IS 97% AT THIS TIME. PT STARTS TO SIT UP AND REACHING WITH LEFT HAND FOR HER MOUTH/VENT. HELPED PATIENT TO LAY BACK DOWN AND INCREASED PROPOFOL TO 65 MCG/KG/MIN AT THIS TIME. PRECEDEX REMAINS AT 0.6 MCG/KG/HR AT THIS TIME. PT HAD 48 ML OF URINE AT 0800. WILL DISCUSS WITH MD REGARDING POTENTIAL EXTUBATION TODAY. WRIST RESTRAINTS REMAIN ON BILATERALLY.
--- NOTE | 2021-10-09 12:00 | NUR ---
POISON CONTROL ON THE PHONE AND GIVING AN UPDATE ON PATIENT'S CONDITION.
--- NOTE | 2021-10-09 12:04 | NUR ---
PATIENT'S SEDATION WAS WEANED DOWN AND PROPOFOL WAS ON STANDBY, WHILE PRECEDEX REMAINED ON. PT WAS SWITCHED TO A CPAP TRIAL. ONCE PATIENT WAS MORE AWAKE, PATIENT WAS WRITHING IN BED, MOVING LEGS ALL THE WAY OVER AND ALMOST OFF OF BED, SCOOTING SELF DOWN, TWISTING BODY INTO THE BED IF SHE WAS GOING TO LAY ON HER STOMACH, AND REACHING FOR HER ETT. PT UNABLE TO FOLLOW COMMANDS, OR OPEN EYES. DR. SEARS IN ROOM, RT IN ROOM. DECISION WAS MADE AFTER ABOUT 20 MINUTES THAT PATIENT IS NOT READY FOR EXTUBATION. PATIENT PLACED BACK ON SEDATION MEDICATIONS. WHILE TRYING TO GIVE PATIENT SEDATING MEDICATIONS, PATIENT GOT A HOLD OF HER ETT AND PULLED IT FURTHER OUT, BUT NOT ALL THE WAY OUT. PATIENT'S TUBE WAS ABLE TO BE REPOSITIONED WITH RT AND DR. SEARS AT BEDSIDE, AND THIS RN. CHEST XRAY TAKEN TO VERIFY PLACEMENT. ETT REMAINS 24 AT THE LIP AT THIS TIME. PT VERY AGITATED, RESTLESS, AND AT HIGH RISK OF PULLING ETT. CONTINUE TO MONITOR CLOSELY.
--- NOTE | 2021-10-09 13:10 | NUR ---
PATIENT'S DAUGHTER IN ROOM AT THIS TIME AND HOLDING PATIENT'S HAND. PATIENT IS CALM AT THIS TIME, AND SP02 IS 97% ON 35% FI02. PT REMAINS ON PROPOFOL AT 50 MCG/KG/MIN, AND PRECEDEX AT 1.2 MCG/KG/HR. IVF CONTINUE AT 125 ML/HR. URINE OUTPUT AT 1300 WAS 350 ML FOR THE HOUR. WILL CONTINUE TO MONITOR CLOSELY.
[2021-10-09] MEDS ORDERED: OMEPRAZOLE40 MG PO (14:04)
[2021-10-09] MEDS ORDERED: TIZANIDINE HCL4 MG PO (14:05)
[2021-10-09] MEDS ORDERED: RIZATRIPTAN10 MG PO (14:05)
[2021-10-09] MEDS ORDERED: PROMETHAZINE HC25 M1 PO (14:07)
[2021-10-09] MEDS ORDERED: IBUPROFEN400 MG PO (14:10)
--- NOTE | 2021-10-09 14:36 | NUR ---
PATIENT REMAINS ON PROPOFOL AND PRECEDX FOR SEDATION. ATTEMPTED TO TITRATE DOWN BUT WHEN PATIENT WAKES UP, SHE FIGHTS AGAINST VENT AND HOLDS HER BREATH, ALARMING THE VENT FOR LOW MINUTE VENTILATION. PROPOFOL INCREASED TO 65 MCG/KG/MIN AND PRECEDEX AT 1.2 MCG/KG/HR. IVF CONTINUE AT 125 ML/HR. PT'S DAUGHTER REMAINS AT BEDSIDE AND ATTENTIVE TO PATIENT. CONTINUE TO MONITOR CLOSELY.
--- NOTE | 2021-10-09 17:07 | NUR ---
PATIENT'S DAUGHTER REMAINS IN ROOM WITH PATIENT AT THIS TIME AND ATTENTIVE TOWARDS HER. PT GIVEN PRN VALIUM RECENTLY FOR INCREASED AGITATION AND COUGHING AGAINST THE VENTILATOR. WILL CONTINUE TO MONITOR.
--- NOTE | 2021-10-09 17:51 | EKG ---
[facility] [address] [facility] [place] [address] Signed Normal sinus rhythm Prolonged QT Abnormal ECG When compared with ECG of 08-OCT-2021 17:48, (Unconfirmed) No significant change was found Confirmed by ELIS SEARS MD ([id number]) on 10/09/2021 5:51:37 PM Electronically Signed By: ELIS SEARS MD 10/09/21 1751 PATIENT NAME: JAQUELIN BUCKLEY CHLO[facility] Electrocardiogram DATE OF : 79 PHYSICIAN: ELIS SEARS MD REPORT #: [id number] REPORT IS CONFIDENTIAL AND NOT TO BE RELEASED WITHOUT AUTHORIZATION
--- NOTE | 2021-10-09 17:51 | EKG ---
[facility] [address] [facility] [place] [address] Signed Poor data quality, interpretation may be adversely affected Sinus tachycardia Nonspecific ST and T wave abnormality Abnormal ECG When compared with ECG of 11-JUN-2021 10:31, Nonspecific T wave abnormality has replaced inverted T waves in Anterior leads Confirmed by ELIS SEARS MD ([id number]) on 10/09/2021 5:50:52 PM Electronically Signed By: ELIS SEARS MD 10/09/21 1751 PATIENT NAME: JAQUELIN BUCKLEY [facility] Electrocardiogram DATE OF : 79 PHYSICIAN: ELIS SEARS MD REPORT #: [id number] REPORT IS CONFIDENTIAL AND NOT TO BE RELEASED WITHOUT AUTHORIZATION
--- NOTE | 2021-10-09 17:51 | EKG ---
[facility] [address] [facility] [place] [address] Signed Normal sinus rhythm T wave abnormality, consider anterior ischemia Prolonged QT Abnormal ECG When compared with ECG of 07-OCT-2021 19:32, (Unconfirmed) Vent. rate has decreased BY 49 BPM Confirmed by ELIS SEARS MD ([id number]) on 10/09/2021 5:51:00 PM Electronically Signed By: ELIS SEARS MD 10/09/21 1751 PATIENT NAME: JAQUELIN BUCKLEY CHLOÉ Electrocardiogram DATE OF : 79 PHYSICIAN: ELIS SEARS MD REPORT #: [id number] REPORT IS CONFIDENTIAL AND NOT TO BE RELEASED WITHOUT AUTHORIZATION
--- NOTE | 2021-10-09 17:51 | EKG ---
[facility] [address] [facility] [place] [address] Signed Normal sinus rhythm Cannot rule out Inferior infarct (cited on or before 08-OCT-2021) Abnormal ECG When compared with ECG of 08-OCT-2021 14:07, (Unconfirmed) No significant change was found Confirmed by ELIS SEARS MD ([id number]) on 10/09/2021 5:51:18 PM Electronically Signed By: ELIS SEARS MD 10/09/21 1751 PATIENT NAME: JAQUELIN BUCKLEY CHLOÉ Electrocardiogram DATE OF : 79 PHYSICIAN: ELIS SEARS MD REPORT #: [id number] REPORT IS CONFIDENTIAL AND NOT TO BE RELEASED WITHOUT AUTHORIZATION
--- NOTE | 2021-10-09 17:51 | EKG ---
[facility] [address] [facility] [place] [address] Signed Normal sinus rhythm Possible Inferior infarct , age undetermined Abnormal ECG When compared with ECG of 08-OCT-2021 06:01, (Unconfirmed) Borderline criteria for Inferior infarct are now present Nonspecific T wave abnormality has replaced inverted T waves in Inferior leads Nonspecific T wave abnormality now evident in Lateral leads Confirmed by ELIS SEARS MD ([id number]) on 10/09/2021 5:51:09 PM Electronically Signed By: ELIS SEARS MD 10/09/21 1751 PATIENT NAME: JAQUELIN BUCKLEY CHLOÉ Electrocardiogram DATE OF : 79 PHYSICIAN: ELIS SEARS MD REPORT #: [id number] REPORT IS CONFIDENTIAL AND NOT TO BE RELEASED WITHOUT AUTHORIZATION
--- NOTE | 2021-10-09 23:40 | NUR ---
PT FREQUENTLY COUGHING WITH PERIODS OF SUSTAINED COUGH THAT INHIBIT VENTILATION. PROPOFOL INCREASED TO 60 MCG/KG/MIN.
--- NOTE | 2021-10-10 03:11 | NUR ---
UPDATED POISON CONTROL ON PT CONDITION. THEY RECOMMEND MORNING CMP, MAG, AND EKG. ORDERS PLACED.
--- NOTE | 2021-10-10 05:46 | NUR ---
PT REPOSITIONED AND ORAL CARE COMPLETED.
--- NOTE | 2021-10-10 08:57 | NUR ---
SEDATION AWAKENING TRIAL BEGAN AT 0800. PROPOFOL OFF AT 0830. RT IN ROOM AT 0845 TO PUT PATIENT ON CPAP TRIAL. PT FAILED TRIAL EVIDENCED BY NOT MEETING WEANING PARAMETERS, ETC02 STARTING TO GO UP, PT BREATHING RAPIDLY, PT NOT FOLLOWING COMMANDS. PT DOESN'T OPEN EYES, NOR WILL SHE SQUEEZE MY HANDS AT THIS TIME. PT ALSO NOT NODDING OR SHAKING HEAD AT ALL. DISCUSSED WITH DR. SEARS AND PATIENT PLACED BACK ON FULL SUPPORT OF VENT. CURRENT VENT SETTINGS ARE VT 400, FI02 30%, PEEP 5, VC/AC 16. PT HAS HAD LOTS OF ORAL SECRETIONS, WELL BEEN DEEP SUCTIONED 4-5 TIMES BY THIS RN. WRIST RESTRAINTS REMAIN IN PLACE. [place] DRAINING YELLOW URINE. PROPOFOL TURNED BACK ON AND CURRENTLY AT 70 MCG/KG/MIN, PRECEDEX REMAINS ON AT 1.2 MCG/KG/HR. IVF CONTINUE AT 75 ML/HR. CONTINUE TO MONITOR CLOSELY.
--- NOTE | 2021-10-10 09:57 | NUR ---
PATIENT'S IN ROOM AT THIS TIME. UPDATE GIVEN ON STATUS OF PATIENT AND ALL QUESTIONS ANSWERED BEST POSSIBLE. NEW PRECEDEX GTT STARTED, AND PROPOFOL TITRATED TO 60 MCG/KG/MIN. PT ADEQUATELY SEDATED AT THIS TIME WITH A RASS OF -2. CONTINUE TO MONITOR.
--- NOTE | 2021-10-10 10:05 | NUR ---
POISON CONTROL ON THE PHONE AND GIVEN AN UPDATE ON PATIENT'S CONDITION. NO FURTHER RECOMMENDATIONS REC'D AT THIS TIME AND THEY WILL FOLLOW UP AGAIN TOMMORROW.
--- NOTE | 2021-10-10 11:00 | NUR ---
DR. SEARS IN ROOM AT THIS TIME. PT'S REMAINS IN ROOM. PASTORAL CARE IN TO CHECK ON PATIENT. QUESTIONS BEING ANSWERED BEST POSSIBLE. CONTINUE TO MONITOR.
--- NOTE | 2021-10-10 11:38 | NUR ---
PATIENT TURNED TO LEFT SIDE AND POSITIONED WITH PILLOWS. PT'S LEAVES AT THIS TIME. PT GRIMACING AND SHOWING SIGNS OF DISCOMFORT/PAIN. WILL GIVE PATIENT TORADOL IV AND SCHEDULED IV LASIX. CONTINUE TO MONITOR.
--- NOTE | 2021-10-10 12:19 | NUR ---
PT GIVEN PO POTASSIUM PER OG TUBE AND TUBE FEEDS STARTED AT 20 ML/HR, PROMOTE 1.0. CAT SITTER LEIA IN TO SEE PATIENT AND PROVIDING RECOMMENDATIONS. PT GIVEN IV LASIX AND DILUTE YELLOW URINE RETURNING. PT REMAINS ON PROPOFOL AT 60 AND PRECEDEX AT 1.2. CONTINUE TO MONITOR.
--- NOTE | 2021-10-10 12:40 | NUR ---
UPdate from Rn. Pt remains on a vent.
--- NOTE | 2021-10-10 13:57 | EKG ---
[facility] [address] [facility] [place], [place] [address] Signed Normal sinus rhythm Normal ECG When compared with ECG of 09-OCT-2021 05:51, No significant change was found Confirmed by ELIS SEARS MD ([id number]) on 10/10/2021 1:57:29 PM Electronically Signed By: ELIS SEARS MD 10/10/21 1357 PATIENT NAME: JAQUELIN BUCKLEY CHLOÉ Electrocardiogram DATE OF : 79 PHYSICIAN: ELIS SEARS MD REPORT #: [id number] REPORT IS CONFIDENTIAL AND NOT TO BE RELEASED WITHOUT AUTHORIZATION
--- NOTE | 2021-10-10 14:26 | NUR ---
PT ON VENT, IN RM. GUNJAN TEARFUL, SEEMS PLEASED I STOPPED BY. GUNJAN ASKED ABOUT MASS NOT JEWISH BUT THOUGHT IT MIGHT BE A HELP. SPENT TIME DEBRIEFING, ENCOURAGING HIM. GAVE PT A P.SHAWL AND HAD PRAYER. WILL CONTINUE TO FOLLOW
--- NOTE | 2021-10-10 16:46 | NUR ---
ASSESSMENT COMPLETE AND PATIENT TURNED TO BACK, WITH HIPS FLOATED ON PILLOWS. TEMP 99.9 NOW AND PATIENT DIAPHORETIC. PT REMAINS ON PROPOFOL AT 60 MCG/KG/MIN AND PRECEDEX AT 1.2 MCG/KG/HR. IVF CONTINUE AT 75 ML/HR. CONTINUE TO MONITOR CLOSELY.
[2021-10-10] MEDS ORDERED: MELOXICAM15 MG PO (17:15)
[2021-10-10] MEDS ORDERED: DICLOFENAC SOD100 G1 TOP (17:15)
--- NOTE | 2021-10-11 04:29 | NUR ---
PT RESTING QUIETLY. TOLERATING VENT. VSS. TUBE FEEDS RUNNING AT GOAL RATE OF 50mL/HR. BT HYPOACTIVE. LUNG SOUNDS CLEAR AND DIM.
--- NOTE | 2021-10-11 07:56 | NUR ---
IN PATIENT'S ROOM AT THIS TIME. PT'S ARRIVES AND IS AT BEDSIDE. RANGE OF MOTION PROVIDED TO PATIENT'S ARMS AND LEGS. PT TOLERATED WELL. PROPOFOL TITRATED DOWN TO 40 MCG/KG/ MIN. [place] DRAINING CLEAR YELLOW URINE. VENT SETTINGS REMANS VT 400, FI02 30%, PEEP 5, VC/AC 16, ETC02 33. PIP IS 25 AT THIS TIME. LUNGS ARE CLEAR ANTERIORLY. HR INT HE 60s. PRECEDEX REMAINS AT 1.2 MCG/KG/HR. IVF CONTINUE AT 75 ML/HR.
--- NOTE | 2021-10-11 08:40 | NUR ---
PROPOFOL ON STANDBY AT THIS TIME. WILL CALL RT TO PLACE PATIENT ON CPAP SOON. CONTINUE TO MONITOR.
--- NOTE | 2021-10-11 09:12 | NUR ---
PATIENT TOO AGITATED TO COME OFF VENTILATOR TODAY AND WILL REMAIN ON VENT. PROPOFOL BACK ON AT 0910. CONTINUE TO MONITOR. PT'S REMAISN AT BEDSIDE. CONTINUE TO MONITOR.
--- NOTE | 2021-10-11 11:00 | NUR ---
PATIENT'S REMAINS IN ROOM AND ATTENTIVE TO PATIENT. PROPOFOL INFUSING AT 55 MCG/KG/MIN AND PRECEDEX REMAINS AT 1.2 MCG/KG/HR. PT HAS IVF CONTINUE AT 75 ML/HR. PT COUGHING AGAINST VENTILATOR SOME AND PROVIDED WITH SUCITONING.
--- NOTE | 2021-10-11 11:56 | NUR ---
PATIENT'S TUBE FEEDING IS RUNNING AT GOAL RATE OF 50 ML/HR USING PROMOTE 1 GLENDA WITH FIBER FORMULA. THIS IS THE GOAL RATE WHILE PATIENT IS ON PROPOFOL. THIS PROVIDES 1200 CALORIES AND 75 GRAMS OF PROTEIN EACH DAY. PROPOFOL RUNNING AT 24 ML/HR CURRENTLY (633 CALORIES). NO CHANGES TO TUBE FEEDING AT THIS TIME.
--- NOTE | 2021-10-11 12:15 | NUR ---
ASSESSMENT COMPLETE. PROPOFOL CURRENTLY AT 50 MCG/KG/MIN AND PRECEDEX AT 1.2 MCG/KG/HR. ORAL CARE PROVIDED.PT TOLERATED WELL. RESTRAINTS REMAIN IN PLACE AND CMS INTACT.
--- NOTE | 2021-10-11 13:39 | NUR ---
PT STILL ON VENT, GUNJAN IN RM. HAD GOOD VISIT, TRYING TO STAY POSITIVE. CCU STAFF FEEL PT IS NOT READY TO EXTEBATE, GUNJAN UNDERSTANDS GAVE ENCOURAGEMENT AND BLESSING. WILL FOLLOW
--- NOTE | 2021-10-11 15:00 | NUR ---
Spoke with Anca germain [facility] and gave her Fide number. Let her know I do not have pts consent for them to speak with her, would like to speak with them. She will call him.
--- NOTE | 2021-10-11 15:26 | NUR ---
NEW TUBE FEEDING BAG STARTED WITH NEW TUBING. TUBE FEED CONTINUES AT 50 ML/HR. OG TUBE FLUSHED WITH 60 ML TAP WATER. PT REMAINS ON PROPOFOL AT 50 MCG/KG/MIN BUT GOING TO TITRATE DOWN TO 40, PRECEDEX REMAINS AT 1.2 MCG/KG/HR. RASS IS -3 AT THIS TIME. PT ON RIGHT SIDE. WRIST RESTRAINTS REMAIN IN PLACE BILATERALLY. CONTINUE TO MONITOR CLOSELY.
--- NOTE | 2021-10-11 17:41 | NUR ---
Spoke with pts spouse Taye as pt remains on a vent. He states they live in [place] and have 4 children. He states they have been attempti ng to find a rehab for Kay for a few months and were not successful. He agrees to speak with TRIXIE and I will give them his number. Let him know I would need Aky's permission for TRIXIE to speak with her. He states pt has a long history of alcohol use. Their insurance does no cover rehab, we discussed that [facility] usually will assist with rehab, I will have TRIXIE call him.
--- NOTE | 2021-10-11 18:09 | NUR ---
PATIENT GIVEN BED BATH AND DRAW SHEET CHANGED UNDER HER. I/O COMPLETE. PROPOFOL REMAINS AT 40 MCG/KG/MIN AND PRECEDEX AT 1.2 MCG/KG/HR. CONTINUE TO MONITOR.
--- NOTE | 2021-10-12 00:30 | NUR ---
PT REPOSITIONED AND ORAL CARE COMPLETED. LUNG SOUNDS COARSE THROUGHOUT. NO SIGNS OF PAIN AT THIS TIME. 900mL UOP OVER LAST 5 HOURS. PT TOLERATING VENT. WILL CONTINUE TO MONIOTR.
--- NOTE | 2021-10-12 01:27 | NUR ---
PT LAYING IN BED ON THE VENTILATOR RESTLESS AT THIS TIME. PRN FENTANYL AND OXYCODONE ADMINISTERED FOR PAIN PT HAD A GRIMACE ON HER FACE AND WAS TENSE WHILE RESTLESS. PT THEN ORAL AND INLINE SUCTIONED. IV INFUSIONS AND VENTILATOR SETTINGS LEFT UNCHANGED. VITALS TAKEN, ASSESSMENT COMPLETED (SEE NOV). CMS ASSESSED AND IS INTACT. NO FURTHER NEEDS ASSESED AT THIS TIME, WILL CONTINUE PLAN OF CARE.
--- NOTE | 2021-10-12 02:00 | NUR ---
PT COUGHING AND CHEWING ON ETT. FREQUUENT FACIAL GRIMACING AND BODY TENSION. PT GIVEN PRN FENTANYL. PT REPOSITIONED. WILL CONTINUE TO MONITOR.
--- NOTE | 2021-10-12 03:51 | NUR ---
PT HAVING MORE FREQUENT COUGHING EPISODES. PT IS NOT RESTLESS UNLESS COUGHING. PRECEDEX INFUSION HAS BEEN WEANED DOWN TO 0.8 MCG/MIN AND PROPOFOL INCREASED TO 50 MCG/KG/HR AT THIS TIME. WILL CONTINUE TO TITRATE APPROPRIATE. PT REPOSITIONED AND SUCTIONED.
--- NOTE | 2021-10-12 04:41 | NUR ---
PT RESTING QUIETLY, REDUCED PRECEDEX INFUSION TO 0.6 MCG/MIN.
--- NOTE | 2021-10-12 06:24 | NUR ---
RR INCREASED INTO THE 30S. PT FACE TENSE AND APPEARS TO BE CRYING. TEARS IN EYES. PRN FENTANYL ADMINISTERED. WILL CONTINUE TO MONITOR.
--- NOTE | 2021-10-12 07:30 | NUR ---
REPORT RECIEVED, CARE OF PT ASSUMED AT THIS TIME. PT RESTING ON VENT, SPO2 = 94% ON CURRENT VENT SETTINGS. PROPOFOL INFUSING AT 50 MCG/KG/MIN. PRECEDEX INFUSING AT 0.6MG/KG/HR. AT BEDSIDE.
--- NOTE | 2021-10-12 08:00 | NUR ---
PT COUGHING ON VENT, TEARS IN EYES, PULLING AT WRIST RESTRAINTS. PRN FENTYNAL GIVEN AT THIS TIME (SEE EMAR). ORAL AND ET TUBE SUCTIONING COMPLETED. REMAINS AT BEDSIDE. PT NOW APPEARS MORE RELAXED, COUGHING HAS SUBSIDED. THIS RN WILL CONTINUE TO MONITOR.
--- NOTE | 2021-10-12 08:20 | NUR ---
Spoke with pts spouse. She cont. on vent. He was able to speak with TRIXIE yesterday and feels they will be able to help him.
--- NOTE | 2021-10-12 09:35 | NUR ---
PT COUGHING, GRIMACING AND TEARFUL. PRN MEDICATION FOR PAIN GIVEN (SEE EMAR). REMAINS AT BEDSIDE.
--- NOTE | 2021-10-12 10:48 | NUR ---
PROPOFOL TITRATED DOWN TO 20 MCG/KG/MIN AFTER IV PUSH OF PRN PAIN MEDICATION (SEE EMAR). RT IN ROOM TO COLLECT SPUTUM SAMPLE AT THIS TIME. PT IS GRIMACING, TEARFUL. NOT OPENING EYES OR FOLLOWING DIRECTIONS. THIS RN REMAINS AT BEDSIDE.
--- NOTE | 2021-10-12 11:12 | NUR ---
DR CROSS UPDATED ON WEANING TRIAL. PT AT A RASS SCORE OF +3, WILL NOT FOLLOW COMMANDS OR OPEN EYES. GRIMACING AND TEARFUL. PROPOFOL TITRATED BACK UP TO 30 MCG/KG/MIN.
--- NOTE | 2021-10-12 12:23 | NUR ---
CCU STAFF IN WEANING PROCESS FOR PT. HER GUNJAN AT BS. GUNJAN WILLING TO WAIT. GAVE ENCOURAGEMENT AND WILL CHECK BACK
--- NOTE | 2021-10-12 12:30 | NUR ---
PHYSICAL THERAPY IN ROOM TO PERFORM PASSIVE RANGE OF MOTION WITH PT. THIS RN ROOM WELL.
--- NOTE | 2021-10-12 13:00 | NUR ---
BED BATH COMPLETED. TUBING FOR IV INFUSIONS AND TUBE FEEDINGS CHANGED. PT GIVEN PRN MEDICATION FOR PAIN (SEE EMAR). ORAL CARE AND DE [place] CATHETER CARE COMPLETED.
--- NOTE | 2021-10-12 15:00 | NUR ---
PT RESTLESS, COPIUS AMOUNTS OF ET TUBE AND ORAL SECRETIONS. PT GRIMACING AND TEARFUL. PT GIVEN SCHEDULED TYLENOL AND PRN OXYCODONE IN OG TUBE AT THIS TIME. WILL CONTINUE TO MONITOR
--- NOTE | 2021-10-12 16:31 | NUR ---
DISCUSSED PT CURRENT SEDATION AND ASSESSMENT FINDINGS WITH DR CROSS AT THIS TIME. PLAN ESTABLISHED TO INITIATE ABX AND ATTMEPT TO LIGHTEN PT SEDATION AGAIN. PROPOFOL DRIP TITRATED DOWN TO 30 MCG/KG/MIN AT THIS TIME.
--- NOTE | 2021-10-12 17:00 | NUR ---
PROPOFOL TITRATED DOWN TO 5 MCG/KG/HR. PT EXTREMELY DIAPHORETIC, TEARS IN EYES, GRIMACING, BUT NOT RESPONDING VERBAL COMMANDS OR OPENING EYES. DR CROSS IN ROOM TO ASSESS AT THIS TIME.
--- NOTE | 2021-10-12 17:38 | NUR ---
PROPOFOL TITRATED BACK UP TO 20 MCG/KG.MIN. PRECEDEX REMAINS AT 0.8 MCG/KG/HR. ROCEPHIN DONE INFUSING, VANCOMYCIN NOW STARTED. 50 MCG OF FENTYNAL GIVEN AND PT REPOSITIONED IN BED. THIS RN REMAINS AT BEDSIDE.
--- NOTE | 2021-10-12 20:38 | NUR ---
PT RESTING IN BED ON THE VENTILATOR AT THIS TIME, SPO2 95%. PT ORAL AND INLINE SUCTIONED PT WAS COUGHING ON THE VENTILATOR AND ORAL SECRETIONS WERE PRESENT. IV ABX COMPLETED INFUSING AT THIS TIME, PT IV SALINE LOCKED. PROPOFOL INFUSING AT 20MCG/KG/MIN AND PRECEDEX INFUSING AT 0.8 MCG/KG/HR. PRN FENTANYL ADMINISTERED AT THIS TIME ALONG WITH SCHEDULED MEDICATIONS DUE TO PT BEING RESTLESS ON THE VENTILATOR (SEE MAR). PT VITALS TAKEN AND ASSESSMENT COMPLETED (SEE CHART). CMS INTACT, SOFT WRIST RESTRAINTS IN PLACE BILATERALLY, RADIAL PULSES STRONG, BRISK CAPILLARY REFILL. PT IN NO APPARENT DISTRESS AT THIS TIME AND IS NOW RESTING ON THE VENTILATOR, WILL CONTINUE PLAN OF CARE.
--- NOTE | 2021-10-12 21:13 | NUR ---
PT LAYING IN BED ON THE VENTILATOR AT THIS TIME RESTLESS AND COUGHING. PT ORAL AND INLINE SUCTIONED AT THIS TIME. PROPOFOL DRIP INCREASED TO 40MCG/KG/MIN, PRN FENTANYL ADMINISTERED AT THIS TIME FOR PAIN (SEE MAR). PT NOW RESTING IN BED AND NO APPARENT DISTRESS. CMS ASSESSED AT THIS TIME AND IS INTACT ON BOTH WRISTS. SOFT RESTRAINTS IN PLACE STILL, RADIAL PULSES STRONG, CAPILLARY REFILL BRISK. WILL CONTINUE PLAN OF CARE.
--- NOTE | 2021-10-12 23:43 | NUR ---
NEW BOTTLE OF PRECEDEX STARTED AT PREVIOUS RATE OF 0.8 MCG/KG/HR. PT RESTING ON THE VENTILATOR AT THIS TIME IN NO APPARENT DISTRESS. CMS ASSESSED AND IS INTACT, RADIAL PULSES STRONG, BRISK CAPILLARY REFILL PRESENT. VENT SETTINGS AND IV MEDICATION RATE LEFT UNCHANGED, WILL CONTINUE PLAN OF CARE.
--- NOTE | 2021-10-13 02:35 | NUR ---
PT LAYING IN BED ON THE VENTILATOR AT THIS TIME. CMS ASSESSED AND IS INTACT. RESTRAINTS RELEASED. DE [place] NOTED TO HAVE LEAKED BUT IS STILL DRAINING. [place] REPOSITIONED, BED CHANGE DONE. [place] NOTED TO BE DRAINING URINE THAT IS NOW RED TINGED WITH URINE. PT RESTRAINTS PUT BACK ON, PT NOW RESTING IN BED, ORAL SUCTION AND ET SUCTIONED AT THIS TIME. PT IN NO APPARENT DISTRESS AT THIS TIME, WILL CONTINUE PLAN OF CARE. PROPOFOL, PRECEDEX INFUSING AT PREVIOUS RATES, OG FEEDINGS RESUMED AFTER REPOSITIONING PT, [place] DRAINING, WILL CONTINUE PLAN OF CARE.
--- NOTE | 2021-10-13 03:41 | NUR ---
PT RESTING IN BED ON THE VENTILATOR, SETTINGS UNCHANGED, PT IN NO APPARENT DISTRESS AT THIS TIME. NEW BOTTLE OF PROPOFOL STARTED AND NOW INFUSING (SEE MAR). PT BAG OF CONTINUOUS OG FEEDING REFILLED, REPRIMED, AND NOW ON CONTINUOUS AT ORDERED RATE INTO PT'S OG TUBE. NO FURTHER NEEDS ASSESSED AT THIS TIME, WILL CONTINUE PLAN OF CARE. IV MEDICATIONS INFUSING AT PREVIOUS RATES, SPO2 95%.
--- NOTE | 2021-10-13 04:36 | NUR ---
PT RESTING IN BED ON THE VENTILATOR, SETTINGS UNCHANGED, IV MEDICATIONS INFUSING AT PREVIOUS RATES. VITALS TAKEN AND ASSESSMENT COMPLETED (SEE MAR). IV VANCO STARTED AND NOW INFUSING AT ORDERED RATE. PT ORAL SUCTIONED AND IN LINE SUCTIONED AT THIS TIME. PT THEN REPOSITIONED IN BED, PILLOWS PLACED UNDERNEATH. CMS ASSESSED AND IS INTACT, RADIAL PULSES STRONG, CAPILLARY REFILL BRISK. PT IN NO APPARENT DISTRESS AT THIS TIME, WILL CONTINUE PLAN OF CARE. SPO2 95% ON CURRENT SETTINGS.
--- NOTE | 2021-10-13 04:56 | NUR ---
PT RESTLESS ON THE VENTILATOR AT THIS TIME. PT ORAL SUCTIONED BY RAJINDER ALY, THIS RN ADMINISTERED PRN 50MCG OF FENTANYL. PT NOW RESTING ON THE VENTILATOR IN NO APPARENT DISTRESS. IV MEDICATIONS INFUSING AT PREVIOUS RATE VENT SETTINGS UNCHANGED, WILL CONTINUE PLAN OF CARE.
--- NOTE | 2021-10-13 06:36 | NUR ---
PT LAYING IN BED AT THIS TIME RESTING ON THE VENTILATOR. NEW PRECEDEX BOTTLE STARTED AND NOW INFUSING AT PREVIOUS RATE. VENT SETTINGS UNCHANGED, SPO2 96%. PERICARE DONE AT THIS TIME WITH THE HELP OF RAJINDER ALY AND NEW PAD IN PLACE DE LOS SANTOS LEAKED URINE. [place] STILL DRAINING URINE AND INTACT. PT NOW RESTING IN BED AFTER BEING REPOSITIONED. NO FURTHER NEEDS ASSESSED, WILL CONTINUE PLAN OF CARE.
--- NOTE | 2021-10-13 07:49 | NUR ---
IN PATIENT'S ROOM AND PATIENT'S AT BEDSIDE. PT CURRENTLY ON PROPOFOL AT 40 MCG/KG/MIN, PRECEDEX AT 0.8 MCG/KG/HR. VENT SETTINGS ARE VT 400, PEEP 5, FI02 30%, VC/AC 16. WILL ATTEMPT WEANING TRIAL THIS AM. WRIST RESTRAINTS REMAIN IN PLACE BILATERALLY AND CMS INTACT. PT GRIMACING AND BITING DOWN ON TUBE. WILL CONTINUE TO MONITOR.
--- NOTE | 2021-10-13 10:10 | NUR ---
TALKED TO RN AT 930 SHE GAVE PATIENT SOME PAIN MEDICAITON, SEDATION HAD BEEN LIGHTENED AND PATIENT , PT HAS HIGH RR , AND APPEARS UNCOMFORTABLE, AT BEDSIDE, PLAN IS SEDATION VACATION SHE WILL CONSULT THE DOCTOR TO SEE WHAT THE PLAN WILL BE
--- NOTE | 2021-10-13 10:39 | NUR ---
DR. CROSS IN ROOM AND ASSESSING PATIENT. PLAN OF CARE DISCUSSED. ATTEMPTS TO FOCUS ON PAIN CONTROL WILL BE PURSUED WHILE TRYING TO WEAN DOWN AND OFF SEDATION. PT GIVEN PRN FENTANYL AND CALMS AFTER THIS. PRIOR TO PAIN MEDICATION, PT NOTED TO BE GRIMACING HEAVILY IN HER BROW, BITING DOWN ON ETT, BRINGING KNEES UP AND SEEMS VERY UNCOMFORTABLE. PRECEDEX TITRATED DOWN TO 0.6 MCG/KG/HR. PT'S IN ROOM AND ASKING QUESTIONS. CONTINUE TO MONITOR CLOSELY.
--- NOTE | 2021-10-13 11:26 | NUR ---
PATIENT'S DRAW SHEET CHANGED UNDERNEATH HER. PATIENT GIVEN 10 MG IV VALIUM FOR CONTROL OF AGITATION. HR IN THE 70s AT THIS TIME. NOTED THAT PATIENT HAS SOME BLOOD IN HER URINE AT THIS TIME. TEMP 100.[address] CROSS CALLED AND UPDATED. CONTINUE TO MONITOR. WILL NOTIFY RT WHEN PATIENT IS READY FOR WEANING TRIAL. PT STILL NOT FOLLOWING COMMANDS YET BUT CONTINUING TO TRY AND PROMPT PATIENT TO FOLLOW COMMANDS.
--- NOTE | 2021-10-13 12:05 | NUR ---
PT HAD A SEDATION VACATIONS UNABLE TO FOLLOW COMMANDS, RN AT BEDSIDE, PT HAD RAPID SHALLOW BREATHING INDEX OVER 300, SPO2 DRPPED TO 88%,RR 40-60, VT LOW MV LOW, SWITCHED BACK TO CONVENTIONAL VENTILATION CMV AND NOTIFIED DOCTOR. WE WILL CONTINUE OUR COARSE AND CONTINUE TO DO DAILY SEDATION VACATIONS .
--- NOTE | 2021-10-13 12:21 | NUR ---
PATIENT FAILS WEANING TRIAL AND EXTUBATION TRIAL AT THIS TIME. PATIENT BREATHING FAST, NOT MEETING WEANING PARAMETERS WHEN SWITCH TO CPAP. PT WAS WEANED DOWN ON SEDATION VERY SLOWLY AND PROPOFOL WAS ON STANDBY WHEN SWITCHING PATIENT TO CPAP. PRECEDEX REMAINED ON AT 0.4 MCG/KG/HR, WHICH IS LOWER THAN THIS AM AT 0.8 MCG/KG/HR. PT BECOMES AGITATED, DOES NOT FOLLOW COMMANDS, BITES THE ETT, STARTS TO SWEAT IN HER FACE AND AGAIN BRINGS LEGS UP TOWARDS HER ABDOMEN. PT UNABEL TO SQUEEZE HANDS, UNABLE TO OPEN EYES, UNABLE TO SHRUG SHOULDERS, OR FOLLOW ANY COMMAND ASKED OF HER. DR. CROSS NOTIFIED AND SEDATION VACATION AND WEAN TRAIL FINISHES. PT BACK ON PROPOFOL. PT'S HAS REMAINED AT BEDSIDE. CONTINUE TO MONITOR.
--- NOTE | 2021-10-13 13:32 | NUR ---
PATIENT RESTLESS AND COUGHING. ORAL AND ET TUBE SUCTIONED. PATIENT STILL GRIMACING, BITTING TUBE, AND PULLING LEGS UP. 50 MCG OF FENTANYL GIVEN. PATIENT NOW RESTING ON HER LEFT SIDE. PATIENT IS NO LONGER BITTING TUBE, OR GRIMACING. WILL CONTINUE TO CLOSELY MONITOR.
--- NOTE | 2021-10-13 15:05 | NUR ---
LABS SENT PER DR. CROSS ORDER. BLOOD DRAWN FROM CENTRAL LINE AND FLUSHED WELL WITH NS AFTERWARDS. IV PROPOFOL REMAINS AT 40 MCG/KG/MIN, PRECEDEX NOW AT 0.8 MCG/KG/HR. PT GETTING BED BATH. ORAL CARE TO BE PROVIDED. NEW TUBE FEEDING STARTED WITH NEW TUBING. NEW PROPOFOL TUBING CHANGED WELL. CONTINUE TO MONITOR. URINE REMAINS BLOODY TINGED. U/A TO BE SENT.
--- NOTE | 2021-10-13 17:55 | NUR ---
PATIENT CONTINUES TO REST ON VENTILATOR. PROPOFOL INFUSING AT 40 MCG/KG/MIN, PRECEDEX AT 0.8 MCG/KG/HR. PT RECEIVING TUBE FEEDS AT 50 ML/HR. PT STILL COUGHING AGAINST VENT AT TIMES AN DHAVING ORAL SECRETIONS, BUT LESS NOWTHAT SHE IS SEDATED ADEQUATELY AT A -1 TO -2. PT'S LEFT AROUND MIDDAY AND HAS NOT RETURNED AT THIS TIME. WRIST RESTRAINTS REMAIN IN PLACE BILATERALLY. PT BEING TURNED FROM SIDE TO SIDE AND BACK EVERY 2 HOURS. URINE STILL HAS A BLOODY TINGE TO IT. LABS SENT EARLIER AND RESULTS IN THE CHART. PRN FENTANYL HAS BEEN GIVEN FOR PAIN/DISCOMFORT. CONTINUE TO MONITOR.
--- NOTE | 2021-10-13 19:20 | NUR ---
PT RESTING IN BED ON THE VENTILATOR IN NO APPARENT DISTRESS AT THIS TIME, FIO2 30%, SPO2 96%, RR 17. PROPOFOL INFUSING AT 40 MCG/KG/MIN, PRECEDEX INFUSING AT 0.8 MCG/KG/HR. CONTINUOUS TUBE FEEDINGS ONGOING AT ORDERED RATE OF 50ML/HR VIA OG TUBE. NO NEEDS ASSESSED AT THIS TIME, RT NOW IN ROOM ASSESSING PT, WILL CONTINUE PLAN OF CARE.
--- NOTE | 2021-10-13 20:32 | NUR ---
PT LAYING IN BED ON THE VENTILATOR, SETTINGS UNCHANGED, SPO2 95-96%. IV INFUSIONS SET AT PREVIOUS RATES (SEE MAR). OG TUBE FEED ONGOING ORDERED. VITALS ASSESSED AT THIS TIME (SEE CHART). PT NOTED TO BE GRIMACING AND TENSE WHILE ON THE VENTILATOR. PRN FENTANYL IV AND PO OXYCODONE ADMINISTERED FOR PAIN ALONG WITH SCHEDULED MEDICATION. PO MEDICATION GIVEN VIA OG TUBE AND FLUSHED WITH WATER AFTERWARDS. CONTINUOUS FEEDS NOW ONGOING ORDERED. IV SITE AND CENTRAL LINE SITE C/D/I. CENTRAL LINE LUMENS FLUSH EASILY AND RETURN BLOOD. AFTER PRN PAIN MEDICATION WAS ADMINISTERED PT NO LONGER GRIMACING AND APPEARS TO BE IN NO APPARENT DISTRESS. PT THEN ORAL AND INLINE SUCTIONED. NEW PRECEDEX BOTTLE STARTED AND INFUSING AT PREVIOUS RATE. PT REPOSITIONED WITH HELP FROM RAJINDER DAHL. HEEL PROTECTORS IN PLACE. DE [place] NOTED TO HAVE RED STREAKS IN, NO CLOTS NOTED, [place] PATENT AND DRAINING URINE. RESTRAINTS RETIED AND RE-SECURED AT THIS TIME. CMS ASSESSED AND IS INTACT. PT ASSESSMENT COMPLETED (SEE CHART). PT RESTING IN BED ON THE VENTILATOR IN NO APPARENT DISTRESS, WILL CONTINUE PLAN OF CARE.
--- NOTE | 2021-10-13 21:19 | NUR ---
PT RESTING ON THE VENTILATOR AT THIS TIME, RASS-3. VENT SETTINGS AND IV MEDICATION RATES UNCHANGED. PT SPO2 97%, PT IN NO APPARENT DISTRESS AND RESTING AT THIS TIME. SCHEDULED PO MEDICATIONS ADMINISTERED VIA OG TUBE AND FLUSHED WITH WATER, CONTINUOUS FEEDS NOW INFUSING. PT FACE WASHED AFTERWARDS AND PT ORAL SUCTIONED AT THIS TIME. PT IN NO APPARENT DISTRESS AT THIS TIME, NO FURTHER NEEDS ASSESSED, WILL CONTINUE PLAN OF CARE.
--- NOTE | 2021-10-13 22:15 | NUR ---
PT RESTING IN BED AT THIS TIME, VENT SETTINGS UNCHANGED, SPO2 97%. PROPOFOL AND PRECEDEX INFUSING AT PREVIOUS RATES. OG TUBE FEEDINGS ONGOING. PT NOTED TO BE DIAPHORETIC, TEMPERATURE ASSESSED AND WAS 99.3 F AXILLARY. PT'S FACE WASHED, ORAL CARE AND INLINE SUCTION DONE, ORAL CARE DONE AT THIS TIME. CMS ASSESSED AND IS INTACT. RADIAL PULSES STRONG AND CAPILLARY REFILL BRISK BILATERALLY. PT RESTING IN BED IN NO APPARENT DISTRESS, NO FURTHER NEEDS ASSESSED, WILL CONTINUE PLAN OF CARE.
--- NOTE | 2021-10-13 23:03 | NUR ---
PT RESTING ON THE VENTILATOR AT THIS TIME IN NO APPARENT DISTRESS. VENT SETTINGS UNCHANGED, SPO2 97%. PROPOFOL AND PRECEDEX INFUSING AT PREVIOUS RATES, NO FURTHER NEEDS ASSESSED AT THIS TIME, WILL CONTINUE PLAN OF CARE.
--- NOTE | 2021-10-14 00:11 | NUR ---
PT VENTILATOR ALARMING, PT LAYING IN BED RESTLESS ON THE VENTILATOR. PT GRIMACING AND COUGHING ON THE VENTILATOR. PT ORAL AND INLINE SUCTIONED AT THIS TIME. PRN FENTANYL THEN ADMINISTERED FOR PAIN (SEE NOV). PT VITALS TAKEN AND ASSESSMENT COMPLETED (SEE NOV). PT [place] DRAINING BUT WAS NOTED TO HAVE URINE PRESENT ON THE PAD THE DE [place] SANTOS HAD LEAKED. SITE ASSESSED AND WNL, [place] INTACT, [place] DRAINING. PERICARE DONE AND BEDCHANGE DONE WITH THE HELP OF RN HESHAM. PT REPOSITIONED UP ON THE BED, HIPS FLOATED WITH PILLOWS. SOFT RESTRAINTS RETIED AND SECURED, CMS INTACT IN BOTH UPPER EXTREMITIES. NEW BOTTLE OF PROPOFOL STARTED AND NOW INFUSING. PT IN NO APPARENT DISTRESS AFTER DOING CARES AND IS NOW RESTING ON THE VENTILATOR. NO FURTHER NEEDS ASSESSED, WILL CONTINUE PLAN OF CARE. VENT SETTINGS UNCHANGED, SPO2 96%. PROPOFOL AND PRECEDEX INFUSING AT PREVIOUS RATE, OG TUBE FEEDS ONGOING AT ORDERED RATE.
--- NOTE | 2021-10-14 00:49 | NUR ---
VENTILATOR ALARMING, PT LAYING IN BED ON THE VENTILATOR RESTLESS AND GRIMACING AND COUGHING. PT ORAL SUCTIONED AND INLINE SUCTIONED TO CLEAR SECRETIONS. PRN OXYCODONE ADMINISTERED AFTERWARDS VIA OG TUBE AND FLUSHED WITH WATER. NEW BOTTLE OF NUTRITIONAL FLUID PLACED IN TUBE FEEDING BAG, PUMP PRIMED, AND TUBE FEEDINGS NOW CONTINUING AT ORDERED RATE. RT NOW IN TO ASSESS PT. PT IN NO APPARENT DISTRESS AND IS NOW RESTING ON THE VENTILATOR. WILL CONTINUE PLAN OF CARE.
--- NOTE | 2021-10-14 02:04 | NUR ---
PT LAYING IN BED RESTING ON THE VENTILATOR. PT IN NO APPARENT DISTRESS AT THIS TIME, PROPOFOL AND PRECEDEX INFUSING AT PREVIOUS RATES. ORAL CARE DONE ON PT AT THIS TIME AND PT ORAL SUCTIONED. CMS ASSESSED ON WRISTS. STRONG RADIAL PULSES PRESENT, BRISK CAPILLARY REFILL PRESENT, SOFT RESTRAINTS IN PLACED AND SECURED. PT IN NO APPARENT DISTRESS, NO FURTHER NEEDS ASSESSED AT THIS TIME, WILL CONTINUE PLAN OF CARE.
--- NOTE | 2021-10-14 03:39 | NUR ---
PT VENTILATOR ALARMING. PT LAYING IN BED ON THE VENTILATOR RESTLESS, TENSE, AND GRIMACING. PT ORAL AND INLINE SUCTIONED AND PRN FENTANYL ADMINISTERED (SEE MAR). PT BEGAN TO REST ON THE VENTILATOR AFTER ADMINISTERING FENTANYL. NEW BOTTLE OF PROPOFOL STARTED AT PREVIOUS RATE OF 40MCG/KG/MIN. PRECEDEX STILL INFUSING AT 0.8 MCG/KG/HR. PT ASSESSMENT COMPLETED AT THIS TIME (SEE CHART). PT LUNGS CLEAR IN UPPER LOBES BILATERALLY AND DIMINISHED IN THE BASES, BOWEL TONES STILL HYPOACTIVE BUT MORE ACTIVE THAN PRIOR. CMS ASSESSED AND IS INTACT, PUPILS 3MM AND REACTIVE TO LIGHT. PT RASS -3 SHE REACTS ONLY TO PHYSICAL STIMULI AND DOES NOT OPEN EYES. CENTRAL LINE ASSESSED, SITE WNL. LINES FLUSH EASILY AND PULL BACK BLOOD. NO FURTHER NEEDS ASSESSED AT THIS TIME, PT IN NO APPARENT DISTRESS ON THE VENTILATOR, WILL CONTINUE PLAN OF CARE.
--- NOTE | 2021-10-14 04:18 | NUR ---
PT LAYING IN BED RESTING ON THE VENTILATOR IN NO APPARENT DISTRESS. VENT SETTINGS UNCHANGED, IV PROPOFOL AND PRECEDEX INFUSING AT PREVIOUS RATES (SEE MAR). SCHEDULED IV VANCOMYCIN STARTED AND NOW INFUSING AT ORDERED RATE INTO CENTRAL LINE LUMEN. ORAL CARE DONE AT THIS TIME. CMS ASSESSED AND IS INTACT. VITALS TAKEN AT THIS TIME (SEE CHART). NO FURTHER NEEDS ASSESSED, PT IN NO APPARENT DISTRESS, SPO2 97%, WILL CONTINUE PLAN OF CARE.
--- NOTE | 2021-10-14 05:18 | NUR ---
PT LAYING IN BED ON THE VENTILATOR, SPO2 96%. VENT SETTINGS UNCHANGED ALONG WITH IV MEDICATIONS. PT NOTED TO BE GRIMACING AT THIS TIME AND BECOMING RESTLESS. PRN FENTANYL ADMINISTERED FOR PAIN (SEE MAR). IV VANCO COMPLETED AFTERWARDS, LUMEN SALINE LOCKED. FLIGHT SIMULATOR TEACHER IN TO COLLECTED ORDERED LABS. THIS RN MOMENTARILY PAUSED IV MEDICATIONS, WASTED 5ML, AND MONIQUE A SAMPLE FROM THE CENTRAL LINE AND PROVIDED THE SAMPLE TO THE FLIGHT SIMULATOR TEACHER. PROPOFOL AND PRECEDEX NOW INFUSING AT PREVIOUS RATES (SEE MAR). PT RESTING IN BED AT THIS TIME AND IS IN NO APPARENT DISTRESS. NO FURTHER NEEDS ASSESSED, WILL CONTINUE PLAN OF CARE.
--- NOTE | 2021-10-14 06:37 | NUR ---
PT RESTING IN BED ON THE VENTILATOR, SETTINGS UNCHANGED. PROPOFOL AND PRECEDEX INFUSING AT PREVIOUS RATES (SEE MAR). OG TUBE FEEDS ONGOING ORDERED. CMS ASSESSED AND WAS INTACT. SOFT RESTRAINTS ON WRIST BILATERALLY, RADIAL PULSES STRONG. WHILE ASSESSING PT'S CMS SHE BEGAN TO GRIMACE AND BECOME TENSE. PRN FENTANYL ADMINISTERED AT THIS TIME FOR PAIN, PT BECAME RESTFULL AFTERWARDS ON THE VENTILATOR. PT ORAL SUCTIONED AT THIS TIME. PT NOW RESTING IN BED IN NO APPARENT DISTRESS, WILL CONTINUE PLAN OF CARE.
--- NOTE | 2021-10-14 07:05 | NUR ---
REPORT RECEIVED FROM JAGUAR CALVILLO. PT LOOKS RESTFUL, RESP EVEN AND PT BREATHING WITH THE VENT. RESTRAINTS IN PLACE. PROPPOFOL INFUSING AT 40 MCG/KG/MIN AND PRECEDEX INFUSING AT 0.8 MCG/KG/HR.
--- NOTE | 2021-10-14 07:26 | NUR ---
PT APPEARS UNCOMFORTABLE WITH FACIAL GRIMACING AND SETIING OFF AIRWAY PRESSURE ALARM ON VENT, TENSING UP AND PIP PRESSURES UP TO 40'S. 50MCG IV FENTANYL GIVEN AND PT RELAXES, PIP PRESSURES BACK DOWN TO LOW 20'S.
--- NOTE | 2021-10-14 07:40 | NUR ---
PT WAS RESTFUL FOR APPROX 10 MINUTES AND THEN STARTED BECOME AGITATED AGAIN, WITH INCREASE IN FACIAL GRIMACING, MOVING LEGS IN BED, INCREAESED RESP RATE UP TO 26, AND INCREASED PEAK INSP PRESSURES. CALL TO DR CROSS, WILL PLAN ON SEDATION LIGHTENING LATER BUT MEDICATE HER AT THIS TIME FOR COMFORT. PROPOFOL GTT INCREASED TO 50MCG/KG/MIN.
--- NOTE | 2021-10-14 07:45 | NUR ---
PT HAD BEEN LIGHTEN UP ON SEDATION PER RN, HAD HIGH PPK PRESSURE, HIGH RR, AND APPEARED MORE SWEATY, PT NOT RESPONING HOWEVER IS BITING DOWN ON EET TUBE, DOCTOR TAY WAS NOTIFIED AND NO FUTHER SEDATION VACATION UNTIL FUTHER REVIEW OF PATIENT NEEDS AT THIS TIME . RAJINDER WEINSTEIN NOTIFIED OF CARE PLAN .
--- NOTE | 2021-10-14 07:53 | NUR ---
RT IN TO DO ORAL CARE AND ASSESS PT.
--- NOTE | 2021-10-14 08:13 | NUR ---
PTS IN TO SEE PT, UPDATED ON PLAN FOR THE DAY INCLUDING PLAN TO START TURNING DOWN SEDATION.
--- NOTE | 2021-10-14 08:19 | NUR ---
PROPOFOL AND PRECEDEX TITRATED DOWN, 50MCG IV FENTANYL GIVEN FOR PT COMFORT. SHE CONT TO HAVE FACIAL GRIMACING, INCREASED RR AND OVERALL LOOKING ANXIOUS UNCOMFORTABLE. DOES RELAX SOME AFTER FENTANYL GIVEN. AT BEDSIDE, PT NOT FOLLOWING ANY COMMANDS AT THIS TIME.
--- NOTE | 2021-10-14 09:24 | NUR ---
PATIENT REMAINS ON VET. GUNJAN REMAINS AT BEDSIDE.
--- NOTE | 2021-10-14 09:41 | NUR ---
DR CROSS IN TO CHECK ON PT
--- NOTE | 2021-10-14 09:42 | NUR ---
PT DID NOT TOLERATE THE LIGHTENING OF SEDATION, PROPOFOL HAD BEEN TURNED DOWN TO 30MCG/KG/MIN AND PRECEDEX DOWN TO 0.6MCG/KG/HR AND PT BECAME MUCH MORE RESTLESS AND ANXIOUS, WITH FACE GRIMACED, MOVING LEGS UP IN BED AND INCREASED RR UP TO 30'S. RT AT BEDSIDE, WHO CONSULTED WITH DR CROSS, PLAN NOW IS TO DISCONTINUE AWAKENING TRIAL, WILL INCREASE PROPOFOL AND PRECEDEX NEEDED.
--- NOTE | 2021-10-14 11:56 | NUR ---
PATIENT IS STILL INTUBATED. DIET ORDER IS NPO JUST NOW. I SUGGEST CONTINUING TO RUN THE PROMOTE 1 GLENDA WITH FIBER AT 50 ML/HR WHILE PROPOFOL IS RUNNING. PATIENT'S GLUCOSE WAS 221 THIS AM. HGBA1C 6.3%.
--- NOTE | 2021-10-14 12:00 | NUR ---
PT HAS BECOME AGITATED AGAIN, BITING AT ETT AND ROLLING LEGS AROUND IN BED. 20MG IV VALIUM GIVEN. PROPOFOL CONT TO INFUSE AT 60MCG/KG/MIN AND PRECEDEX AT 0.6MCG/KG/MIN. AT BEDSIDE. RT IN TO SEE PT AND DO ORAL CARE.
--- NOTE | 2021-10-14 12:12 | NUR ---
PT STILL ON VENT, GUNJAN HER FAITHFULLY BY HER SIDE. HE ADMITTED THAT WAITING IS GETTING HARDER. GAVE ENCOURAGEMENT, PT SEEMS MORE ACTIVE-TOSSING AND MOVING WITH FACIAL MOVEMENTS. INFORMED GUNJAN THAT SPIRITUAL HELP IS AVAILABLE AROUND THE CLOCK IF HE NEEDS, JUST INFORM HIS RN-HE ACKNOWLEDGED. I WILL CONTINUE TO FOLLOW
--- NOTE | 2021-10-14 12:16 | NUR ---
PT CALMED BRIEFLY AFTER VALIUM GIVEN AND THEN STARTED BEING AGITATED AGAIN, RR UP TO 30'S, PIP 38, FACIAL GRIMACING, 50MCG IV FENTANYL GIVEN.
--- NOTE | 2021-10-14 12:53 | NUR ---
PT HAS REMAINED CALM SINCE LAST DOSE OF FENTANYL WAS GIVEN.
--- NOTE | 2021-10-14 13:37 | NUR ---
PT STARTING TO GRIMACE AGAIN, LOOKING UNCOMFORTABLE AND COUGHING ON VENT ALSO INCREASED RR TO 20'S. 50MCG IV FENTANYL GIVEN.
--- NOTE | 2021-10-14 15:15 | NUR ---
DR CROSS ON UNIT, UPDATED ON PTS DAY AND STATUS, INCLUDING DISCUSSION OF PTS DISCOMFORT, FREQUENT FENTANYL PUSHES AND STILL NO BOWEL MOVEMENT SINCE ADMIT. PLAN TO START PT ON FENTANYL DRIP, GIVE DULCOLAX SUPPOSITORY AND IF PT HAS NO RESULTS GIVE A FLEETS ENEMA.
--- NOTE | 2021-10-14 16:20 | NUR ---
PHYSICAL THERAPY HAS JUST FINISHED WORKING WITH PT, DOING ROM OF LEGS, FEET AND WRISTS. PT GIVEN SCHEDULED DOSE OF PHENOBARBITOL, HAS OCCASIONAL GRIMACING AT THIS TIME, RESP CONT TO BE INCREASED AT 26-28, HR 60'S. AWAITING FENTANYL DRIP TO BE VERIFIED THROUGH PHARMACY.
--- NOTE | 2021-10-14 17:03 | NUR ---
FENTANYL DRIP HAS BEEN GOING FOR APPROX 20 MINTUES AT 50MCG/HR. PT HAS CONT TO LOOK ANXIOUS AND CONT TO HAVE INCREASED RESP RATE OVER BREATHING VENT 28, FACIAL GRIMMACING AND BITING ON ETT. 20MG IV VALIUM GIVEN. AT BEDSIDE, ATTEMPTING TO CALM AND REASSURE PT. PT STILL IS NOT FOLLOWING ANY COMMANDS OR MAKING ANY REAL PURPOSEFUL MOVEMENTS OTHER THAN TO WRITHE AROUND IN AN AGITATED/PAINFUL MANNER.
--- NOTE | 2021-10-14 18:21 | NUR ---
OVER THE LAST 2 HOURS THE PT HAS HAD AN INCREASE IN OVERALL AGITATION, HAS BEEN OVERBREATHING THE VENT WITH RR FROM 20 UP TO 40'S DESPITE INCREASE IN PROPOFOL AND PRECEDEX DRIPS, AND IVP PUSH OF 20MG VALIUM AT 1700 AND 1800. SUCTIONING DONE WITH RETURN OF CLEAR THIN SECRETIONS, RT CONSULTED CAN FIND NO RESPIRATORY ISSUES. IN ROOM, ATTEMPTING TO HELP REASSURE PT ALTHOUGH HE IS BECOMING TEARFUL AND UPSET AT PTS CONDITION. PROPOFOL GTT IS AT 80MCG/KG/MIN, PRECEDEX HAS BEEN TITRATED TO 1 MCG/KG/HR AND FENTANYL IS GOING AT 100MCG/HR. PT FINALLY SEEMS TO BE SETTLING DOWN NOW AND RESP RATE IS BACK DOWN TO 16, PT NO LONGER GRIMACING AND BITING AT TUBE.
--- NOTE | 2021-10-14 19:30 | NUR ---
PT RESTING IN BED ON THE VENTILATOR AT THIS TIME IN NO APPARENT DISTRESS. VENTILATOR SETTINGS AT 30% FIO2, VT 499, 16 RR, PEEP 5. SPO2 96%. PROPOFOL INFUSING AT 80MCG/KG/MIN, PRECEDEX AT 1MCG/KG/HR, FENTANYL AT 100 MCG/HR. CONTINUOUS FEEDS ONGOING VIA OG TUBE AT 50ML/HR. [place] DRAINING MIKE URINE. PT IN NO APPARENT DISTRESS AT THIS TIME, NO FURTHER NEEDS ASSESSED, WILL CONTINUE PLAN OF CARE.
--- NOTE | 2021-10-14 21:10 | NUR ---
PT LAYING IN BED RESTING ON THE VENTILATOR, SETTINGS UNCHANGED, SPO2 96%. IV MEDICATIONS INFUSING AT PREVIOUS RATES AT THIS TIME (SEE MAR). PT VITALS TAKEN, PT ASSESSMENT COMPLETED. LUNGS CLEAR IN UPPER LOBES BILATERALLY, DIMINISHED IN THE BASES. ABDOMINAL SOUNDS HYPOACTIVE IN ALL 4 QUADRANTS. EYES EQUAL, ROUND, AND REACTIVE TO LIGHT. CMS ASSESSED AND IS INTACT. STRONG RADIAL AND PEDAL PULSES, BRISK CAPILLAR REFILL. SOFT RESTRAINTS IN PLACE ON WRIST BILATERALLY. CENTRAL LINE SITE C/D/I, AND LUMENS FLUSH EASILY AND DRAW BLOOD. SCHEDULED MEDICATIONS ADMINISTERED, 1 UNIT INSULIN ADMINSITERED PER SLIDING SCALE. PO MEDICATIONS GIVEN VIA OG TUBE AND FLUSHED WITH WATER, CONTINUOUS FEED NOW ONGOING INTO OG TUBE. RECTAL TEMPEARATURE ASSESSED AND WAS 99.1. FLEET ENEMA DONE AFTER REPOSITIONING PT TO HER LEFT SIDE WITH THE HELP OF RN HESHAM. DR. CROSS UPDATED ON PT, MEDICATION RATES, AND PT NOT HAVING A BM. NEW ORDERS TO BE PLACED FOR ABDOMINAL X-RAY BY DR. CROSS. IMAGING IN SHORTLY AFTER AND TO TAKE AN ABDOMINAL XRAY. AFTERWARDS PROPOFOL DECREASED TO 70MCG/KG/MIN, PRECEDEX DECREASED TO 0.8 MCG/KG/HR PT'S RASS WAS -4. PT NOW RESTING IN BED RESTRAINTS RELEASED AND RETIED TO BED, CMS INTACT, NO FURTHER NEEDS ASSESSED AT THIS TIME, PT IN NO APPARENT DISTRESS, WILL CONTINUE PLAN OF CARE.
--- NOTE | 2021-10-14 22:27 | NUR ---
PT RESTING IN BED AT THIS TIME, VENTILATOR SETTINGS UNCHANGED, SPO2 96%. TUBE FEEDING BAG NOTED TO BE EMPTY, NEW BAG WITH ORDERED NUTRITIONAL SUPPLEMENT HUNG AND NOW ONGOING INTO OG TUBE. PT RASS -4, PROPOFOL DECREASED TO 60 MCG/KG/MIN, FENTANYL DECREASED TO 75 MCG/HR. ORAL CARE DONE ON PT AT THIS TIME AND PT THEN ORAL SUCTIONED. CMS ASSESSED AFTERWARDS AND IS INTACT. STRONG RADIAL PULSES PRESENT, BRISK CAPILLARY REFILL. NO FURTHER NEEDS ASSSESSED AT THIS TIME, PT IN NO APPARENT DISTRESS, WILL CONTINUE PLAN OF CARE.
--- NOTE | 2021-10-14 22:56 | NUR ---
PT RESTING IN BED ON THE VENTILATOR IN NO APPARENT DISTRESS. VENT SETTINGS UNCHANGED, SPO2 96%. PT RASS -4, PROPOFOL DECREASED TO 50MCG/KG/MIN, PRECEDEX DECREASED TO 0.6 MCG/KG/HR. FENTANYL DRIP ON AT 75MCG/HR. PT CHECKED AND HAS NOT HAD A BM, PERICARE DONE CLEAR CONTENTS OF ENEMA PRESENT IN THE [facility] ATTENDS. NEW ATTENDS IN PLACE, PT REPOSITIONED UP ON THE BED WITH HELP FROM RAJINDER DAHL, PILLOWS PLACED UNDER HER LEFT SIDE. PT NOTED TO GRIMACE WHEN RAJINDER DAHL PROVIDED ORAL SUCTIONING AFTER REPOSITIONING BUT IS NOW RELAXED AND RESTING AFTERWARDS. PT IN NO APAPRENT DISTRESS AT THIS TIME, NO FURTHER NEEDS ASSESSED, CMS ASSESSED AND IS INTACT, WILL CONTINUE PLAN OF CARE.
--- NOTE | 2021-10-14 23:38 | NUR ---
NEW BAG OF IV FENTANYL STARTED AND INFUSING AT PREVIOUS RATE OF 75MCG/HR. NO FURTHER NEEDS ASSESSED AT THIS TIME. PT RESTING ON THE VENTILATOR IN NO APPARENT DISTRESS, WILL CONTINUE PLAN OF CARE.
--- NOTE | 2021-10-15 00:18 | NUR ---
PT LAYING IN BED RESTING ON THE VENTILATOR IN NO APPARENT DISTRESS. VENT SETTINGS UNCHANGED, SPO2 96%. IV VANCO STARTED AND INFUSING AT ORDERED RATE, NEW BOTTLE OF PROPOFOL STARTED AND NOW INFUSING AT 40MCG/KG/MIN. VITALS TAKEN AND PT ASSESSED (SEE CHART). LUNGS CLEAR IN UPPER LOBES, DIMINISHED IN THE BASES. BOWEL TONES MORE ACTIVE THAN PRIOR IN ALL 4 QUADRANTS NOW. CMS ASSESSED AND IS INTACT. SOFT WRIST RESTRAINTS ON AND SECURED. RADIAL PULSES STRONG. ORAL CARE AND ORAL SUCTIONING DONE ON PT AT THIS TIME. PT GRIMACING WHILE DOING ORAL CARES BUT IS NOW RELAXED AFTER STOPPING. PT DOES NOT OPEN EYES. EYES 3MM AND REACTIVE TO LIGHT. NO FURTHER NEEDS ASSESSED AT THIS TIME, DE [place] DRAINING, IV FENTANYL STILL INFUSING AT 75MCG/HR, IV PRECEDEX STILL INFUSING AT 0.6 MCG/KG/HR. WILL CONTINUE PLAN OF CARE.
--- NOTE | 2021-10-15 01:01 | NUR ---
IV VANCOMYCIN COMPLETED AT THIS TIME. PT RESTING IN BED IN NO APPARENT DISTRESS ON THE VENTILATOR. SPO2 95%. PRECEDEX, PROPOFOL, AND FENTANYL INFUSING AT PREVIOUS RATES. NO FURTHER NEEDS ASSESSED, WILL CONTINUE PLAN OF CARE.
--- NOTE | 2021-10-15 02:41 | NUR ---
PT RESTING IN BED ON THE VENTILATOR IN NO APPARENT DISTRESS. VENT SETTINGS UNCHANGED, SPO2 95%. IV PROPOFOL, PRECEDEX, AND FENTANYL INFUSING AT PREVIOUS RATES. CBG ASSESSED AND WAS 151, 1 UNIT OF INSULIN ADMINISTERED PER SLIDING SCALE. PT ORAL AND INLINE SUCTIONED AT THIS TIME. PT NOTED TO GRIMACE WHILE SUCTIONING BUT RELAXED AFTER FINISHING SUCTIONING. PT REPOSITIONED UP IN BED AND PILLOW PLACED UNDER LEFT SIDE. RESTRAINTS RETIED AT THIS TIME. CMS INTACT, RADIAL PULSES STRONG, CAPILLARY REFILL BRISK. NO FURTHER NEEDS ASSESSED AT THIS TIME. PT IN NO APAPRENT DISTRESS AT THIS TIME, WILL CONTINUE PLAN OF CARE.
--- NOTE | 2021-10-15 03:50 | NUR ---
PT RESTING IN BED ON THE VENTILATOR IN NO APPARENT DISTRESS. VENT SETTINGS UNCHANGED, SPO2 95%. VITALS AND ASSESSMENT COMPLETED AT THIS TIME (SEE CHART). LUNGS CLEAR IN UPPER LOBES AND DIMINISHED IN THE BASES BILATERALLY. BOWEL TONES ACTIVE. CENTRAL LINE SITE C/D/I, PROPOFOL AND FENTANYL INFUSING AT PREVIOUS RATES. PRECEDEX DECREASED AND NOW INFUSING AT 0.4 MCG/KG/HR. CMS ASSESSED AND IS INTACT. STRONG RADIAL PULSES PRESENT, SOFT RESTRAINTS IN PLACE BILATERALLY. ORAL CARE AND ORAL SUCTIONING DONE AT THIS TIME. PT NOTED TO GRIMACE DURING SUCTIONING AND ORAL CARE BUT RELAXED HER FACE AFTER IT WAS DONE. PT NOW RESTING IN BED IN NO APPARENT DISTRESS, WILL CONTINUE PLAN OF CARE.
--- NOTE | 2021-10-15 04:27 | NUR ---
IN HOUSE COVID 19 SWAB DONE TO BOTH NARES.
--- NOTE | 2021-10-15 05:17 | NUR ---
PT RESTING IN BED ON THE VENTILATOR IN NO APPARENT DISTRESS. VENT SETTINGS UNCHANGED. NEW BOTTLE OF PROPOFOL STARTED AT PREVIOUS RATE OF 40MCG/KG/MIN. PRECEDEX LEFT AT 0.4 MCG/KG/HR. FENTANYL DECREASED TO 50MCG/HR. CMS ASSESSED AFTERWARDS AND IS INTACT. RADIAL PULSES STRONG, CAPILLARY REFILL BRISK. LABS DRAWN FROM CENTRAL LINE AFTER MOMENTARILY STOPPING DRIPS. DRAW SENT TO LAB, DRIPS NOW INFUSING AT PREVIOUSLY STATED RATES. PT IN NO APPARENT DISTRESS AT THIS TIME, NO FURTHER NEEDS ASSESSED, WILL CONTINUE PLAN OF CARE.
--- NOTE | 2021-10-15 06:51 | NUR ---
PT RESTING IN BED GRIMACING IN BED ON THE VENTILATOR, RESTLESS. VENT SETTING UNCHANGED, SPO2 96%. NEW BAG OF FENTANYL STARTED AND RATE INCREASED TO 100MCG/HR FOR PAIN. PRECEDEX STILL AT 0.4MCG/KG/HR, PROPOFOL STILL AT 40MCG/KG/MIN. AFTERWARDS PT CHECKED FOR BM AND DID NOT HAVE ONE. PERICARE DONE NEW ATTENDS, PAD, AND DRAW SHEET PLACED UNDER PT. PT REPOSITIONED UP IN BED. RESTRAINTS RELEASED AND NEW ONES PLACED. CMS ASSESSED AFTERWARDS AND IS INTACT. ORAL CARE DONE, ORAL SUCTIONING DONE, IN LINE SUCTION DONE. VANCO COMPLETED AFTERWARDS. PT NOW RESTING IN BED IN NO APPARENT DISTRESS, WILL CONTINUE PLAN OF CARE.
--- NOTE | 2021-10-15 07:30 | NUR ---
REPORT RECIEVED, CARE OF PT ASSUMED AT THIS TIME. PT RESTING ON VENT. RASS OF -2. PRECEDEX INFUSING AT 0.4 MCG/KG/HR. PROPOFOL INFUSING AT 40 MCG/KG/MIN. FENTANLY DRIP INFUSING AT 100 MCG/HR. TUBE FEEDS INFUSING THROUGH OG TUBE AT 20 MLS AND HOUR. SPOE = 96%, PT IS RESTFUL BREATHING WITH THE VENT RR=16. WILL CONTINUE TO CLOSELY MONITOR.
--- NOTE | 2021-10-15 07:45 | NUR ---
RT IN ROOM TO ASSESS PATIENT AND PROVIDE ORAL CARE WHILE THIS RN WAS ADMINISTERING AM MEDICATIONS. PT AWAKENS AND GRIMACES WITH ORAL AND ETT TUBE SUCTIONING, BUT BACK TO A -1 TO -2 RASS SCORE AFTER ORAL SUCTIONING IS COMPLETED.
--- NOTE | 2021-10-15 08:39 | NUR ---
PRECEDEX DRIP DC'D AT THIS TIME PER DR CROSS VERBAL ORDER. ROCEPHIN INFUSING. PROPOFOL DRIP DECREASED TO 30 MCG/KG/MIN FOR WEANING TRAIL.
--- NOTE | 2021-10-15 09:15 | NUR ---
PROPOFOL TITRATED DOWN TO 10 MCG/KG/MIN. FENTYNAL TITRATED DOWN TO 75 MCG/HR. PT OCCASIONALLY MOVING HEAD AND LEGS IN BED. PT WILL NOT OPEN EYES, SQUEEZE HANDS, OR FOLLOW OTHER DIRECTIONS. THIS RN REMAINS AT BEDSIDE.
--- NOTE | 2021-10-15 09:36 | NUR ---
RT IN ROOM, PT THRASHING LEGS, GRIMACING, CRYING, BUT REMAINS UNABLE TO FOLLOW ANY VERBAL COMMANDS. TRIALED ON CPAP, RESPIRATIONS UP INTO THE 40S. PT NOW BACK ON SAME VENTILATOR SETTINGS PROPOFOL TITRATED BACK UP TO 30 MCG/KG/MIN. PT REPOSITIONED IN BED. ORAL AND ET TUBE SUCTIONING COMPLETED. FENTANYL DRIP CONTINUES TO INFUSE AT 75 MCG/HR. THIS RN WILL CONTINUE TO CLOSELY MONITOR.
--- NOTE | 2021-10-15 10:46 | NUR ---
PHYSICAL THERAPY IN ROOM WITH PT PERFORMING PASSIVE RANGE OF MOTION.
--- NOTE | 2021-10-15 11:34 | NUR ---
LACTULOSE ENEMA ADMINISTERED AT THIS TIME. PT REPOSITIONED IN BED BY TWO RNS.
--- NOTE | 2021-10-15 11:59 | NUR ---
RT IN ROOM TO PERFORM ORAL CARE. PT HAS COPIOUS ORAL AND ET TUBE SECRETIONS. PT THRASHING, COUGHING AT TUBE, TEARFUL. PRN IV VALIUM ADIMINISTERED (SEE EMAR). WILL CONTINUE TO MONITOR.
--- NOTE | 2021-10-15 12:29 | NUR ---
PT GRIMACING AND TEARFUL. GIVEN PRN OXYCODONE DOWN OG TUBE AT THIS TIME.
--- NOTE | 2021-10-15 13:15 | NUR ---
PT GRIMACING, EYES WATERING, OVER BREATING THE VENT WITH A RESPIRATORY RATE IN THE 30S. PT HAD SMALL LOOSE BOWEL MOVEMENT. BED BATH, DE [place] CATHETER CARE, AND EDGAR CARE COMPLETED AT THIS TIME. BED LINENS CHANGED. PT REPOSITIONED IN BED. PROPOFOL INFUSING AT 50 MCG/KG/MIN; FENTYNAL DRIP INFUSING AT 100 MCG/HR. ASSESSMENT COMPLETED. HEART RATE IN THE 80-90S AT REST, INCREASED INTO THE 110S WITH ACTIVITY. SPO2 = 96% ON CURRENT VENT SETTINGS. PT APPEARS MORE COMFORTABLE AND IS NOW BREATHING WITH THE VENT. RR=15. NO OTHER ASSESSMENT CHANGES.
--- NOTE | 2021-10-15 14:15 | NUR ---
PT DAUGHTER AT BEDSIDE. UPDATED ON PT CURRENT CONDITION AND PLAN OF CARE. ALL QUESTIONS ANSWERED. PT REMAINS RESTING ON VENT. RASS OF -1 TO +1 AT TIMES WHEN ORAL SUCTIONING IS NEEDED.
--- NOTE | 2021-10-15 15:30 | NUR ---
PT DIAPHORETIC, COUGHING ON VENT, TEARFUL, AND GRIMACING, BREATHING OVER VENT WITH RR=30=35. PRN VALIUM ADMINISTERED AT THIS TIME (SEE EMAR). WILL CONTINUE TO MONITOR.
--- NOTE | 2021-10-15 16:15 | NUR ---
ASSESSMENT COMPLETED AND REMAINS UNCHANGED. PROPOFOL CONTINUES TO INFUSE AT 50 MCG/KG/MIN. FENTYNAL INFUSING 1T 125 MCG/HR. PT IS DIAPHORETIC. HR = 100 BPM AT REST. PT REAMINS DIAPHORETIC; AXILLARY TEMPERATURE OF 99.8. DAUGHTER NO LONGER AT BEDSIDE. REPOSITIONED PT IN BED, ORAL CARE PROVIDED. WILL CONTINUE TO MONITOR.
--- NOTE | 2021-10-15 19:26 | NUR ---
PATIENT REPORT RECIEVED FROM RAJINDER BARRON. PATIENT PROPOFOL RUNNING AT 50 MCG/MIN. FENTYNAL AT 125 MG/HR. PATIENT VENT SETTINGS VC-AC, FIO2 30%, RR 16, VT 400, PEEP 5.0. PATIENT BREATHING EQUAL AND UNLABORED.
--- NOTE | 2021-10-15 20:45 | NUR ---
PATIENT ASSESSMENT COMPLETE. MEDICATIONS GIVEN ORDERED. PROPOFOL RUNNING AT 50 MCG/KG/MIN. FENTYNAL RUNNING AT 125 MCG/HR. PATIENT RASS SCORE IS -1 TO -2. PATIENT LUNG SOUNDS ARE CLEAR IN THE UPPER LOBES AND DIMINISHED IN THE BASES. VENT SETTINGS VC-AC VT 400, FIO2 30%, RR 16, PEEP 5.0. ETCO2 48, PIP 22. OXYGEN SATURATION 90-92%. BREATHING EQUAL AND UNLABORED. HEART RATE SINUS TACH 90-110 BPM. FEVER 100.7. TYLENOL GIVEN. URINE OUTPUT IS CLEAR AND YELLOW. NO BM. BOWEL TONES ARE ACTIVE. PATIENT REPOSITIONED. RESTRAINT CARE COMPLETE. ORAL CARE COMPLETE. SUCTIONED. ROM. IV SITE PATENT SALINE LOCKED. PATIENT IS DIAPHORETIC. SKIN INTACTED. PLAN OF CARE UPDATED. CALL LIGHT WITHIN REACH NO FUTHER NEEDS.
--- NOTE | 2021-10-15 22:00 | NUR ---
PATIENT REPOSITIONED. RESTRAINT CARE COMPLETE. PULSES FELT STRONG. SUCTION COMPLETED. VENT SETTINGS VC-AC FIO2 30%, RR 16, PEEP 5.0, VT 400. BREATHING EQUAL AND UNLABORED.
--- NOTE | 2021-10-16 | NUR ---
PATIENT ASSESSMENT COMPLETE. PROPOFOL RUNNING AT 50 MCG/KG/MIN, FENTYNAL RUNNING AT 125 MCG/HR. TUBE FEEDINGS RUNNING AT 50 MLS/HR. PATIENT RASS SCORE IS -1 TO -2. LUNG SOUNDS ARE CLEAR IN THE UPPER LOBES AND DIMINISHED IN THE BASES. INCREASED AMOUNT OF ORAL SECREATIONS THIN AND WHITE. VENT SETTINGS VC-AC FIO2 30%, PEEP 5.0, VT 400, RR 16. BREATHING EQUAL AND UNLABORED. HEART RATE 90-110 BPM SINUS RYTHM. LOW GRADE FEVER 99.9. REPLACED [place] CATH DUE TO LEAKAGE. URINE YELLOW AND CONCENTRATED. SMEAR OF BOWEL MOVEMENT. BRIEF CHANGED. PATIENT REPOSITIONED. RESTRIANT CARE COMPLETE. PULSES FELT STRONG. ORAL CARE COMPLETE. SKIN INTACT. PLAN OF CARE UPDATED. CALL LIGHT WITHIN REACH NO FUTHER NEEDS.
--- NOTE | 2021-10-16 01:00 | NUR ---
PATIENT APPEARS TO BE IN NO ACUTE DISTRESS. VENT SETTINGS UNCHANGED. BREATHING EQUAL AND UNLABORED. CALL LIGHT WITHIN REACH NO FUTHER NEEDS.
--- NOTE | 2021-10-16 02:00 | NUR ---
PATIENT RESTRAINT CARE COMPLETE. ROM COMPLETE. PATIENT REPOSTIONED. PULSES FELT STRONG. PATIENT ORAL SUCTIONED. PROPOFOL RUNNING AT 50 MCG/KG/MIN, FENTYNAL RUNNING AT 125 MCG/HR. TUBE FEEDINGS RUNNING AT 50 MLS/HR. RASS SCORE -1. BREATHING EQUAL AND UNLABORED.
--- NOTE | 2021-10-16 04:00 | NUR ---
PATIENT ASSESSMENT COMPLETE. PATIENT IS ON PROPOFOL RUNNING AT 50 MCG/KG/MIN, FENTYNAL 125 MCG/HR. FEEDING TUBE RUNNING AT 50 MLS/HR. PATIENT RASS SCORE -1 TO -2. LUNG SOUNDS ARE CLEAR IN THE UPPER LOBES AND DIMINISHED IN THE BASES. VENT SETTINGS ARE FI02 30%, RR 16, VT 400, PEEP 5.0. BREATHING EQUAL AND UNLABORED. LARGE AMOUNT OF THIN WHITE SECRETIONS. HEART RATE 90-110 BPM. SINUS TACH. FEVER 100.1. URINE OUTPUT IS CLEAR AND YELLOW. NO BM. BOWEL TONES ACTIVE. PATIENT REPOSITIONED AND RESTRAINT CARE COMPLETE. ORAL CARE AND SUCTION COMPLETE. PULSES FELT STRONG. PLAN OF CARE UPDATED.
--- NOTE | 2021-10-16 06:00 | NUR ---
MD NOTIFIED ABOUT 101.5 TEMP. PATIENT DIAPHORETIC. PATIENT COUGHING ON VENT. MD ORDERED TORADOL 30 MG IV ONCE AND A CHEST X RAY. ORAL SUCTION COMPLETE. VENT SETTINGS UNCHANGED.
--- NOTE | 2021-10-16 08:15 | NUR ---
PTS BP'S HAVE DROPPED TO 70'S/50'S. PROPOFOL AND FENTANYL INFUSIONS STOPPED FOR NOW. DR CARPENTER NOTIFIED. RT, DR CARPENTER, AND NURSING SOLUTION MAKER IN AT BEDSIDE. PT IS OCCASIONALLY MOVING HEAD AND GRIMACING BUT NOT TOO BAD. 500ML BOLUS OF LR STARTED. BPS HAVE BEEN COMING UP SINCE SEDATION STOPPED.
--- NOTE | 2021-10-16 08:30 | NUR ---
PT HAD STARTED BECOMING MORE AGITATED AND SETTING OFF PRESSURE VENT ALARMS, BPS IMPROVED, LR BOLUS COMPLETED. BP UP TO 123/78, PROPOFOL GTT RESTARTED AT 10MCG/KG/MIN AND THEN AFTER BPS REMAINED SATISFACTORY TURNED UP TO 30MCG/KG/MIN.
--- NOTE | 2021-10-16 09:53 | NUR ---
CALLED, STATED ONE OF PTS CHILDREN WOULD BE COMING IN TODAY, UPDATE GIVEN TO HIM ON RECENT CHANGES, FEVER, LOW BP'S, START OF SEROQUEL.
--- NOTE | 2021-10-16 10:13 | NUR ---
DISCUSSION WITH DR CARPENTER REGARDING DROPPING BPS, WILL GIVE ADDITIONAL 500ML BOLUS AND SWITCH SEDATION TO PRECEDEX FROM PROPOFOL. BOTH PROPOFOL AND FENTANYL ON STANDBY AT THIS TIME.
--- NOTE | 2021-10-16 10:15 | NUR ---
BP'S HAVE STARTED TRENDING BACK DOWN AGAIN-76/46 MAP 56- PROPOFOL INFUSION STOPPED AGAIN AND DR CARPENTER CONSULTED. ORDER GIVEN TO TRY SEDATION WITH PRECEDEX INSTEAD OF PROPOFOL. WILL SET UP PRECEDEX GTT AND START IT WHEN PT NEEDS IT.
--- NOTE | 2021-10-16 11:00 | NUR ---
PRECEDEX GTT STARTED AT 0.4MCG/KG/HR FOR INCREASE IN PTS AGITATION AND BITING AT ETT.
--- NOTE | 2021-10-16 11:35 | NUR ---
PRECEDEX GTT TITRATED UP TO 0.8MCG/KG/HR PT HAS BEEN OVERBREATHING THE VENT WITH INCREASED PEAK PRESSURES UP TO 40'S. RT IN ROOM, SUCTIONING PT.
--- NOTE | 2021-10-16 11:58 | NUR ---
PRECEDEX HAS BEEN TITRATED UP TO 0.8MCG/KG/HR AND FENTANYL DRIP HAS BEEN TURNED BACK ON AND TITRATED UP TO 50MCG/HR PT HAS BECOME MORE RESTLESS, LOOKS UNCOMFORTABLE AND IS FREQUENTLY GRAMACING AND PULLING AT RESTRAINTS.
--- NOTE | 2021-10-16 13:00 | NUR ---
PT HAS CONTINUED TO LOOK UNCOMFORTABLE, FREQUENTLY FACE HAS A LOOK OF PAIN, GRIMACING, FENTANYL TURNED UP TO 100MCG/HR. PT REPOSITIONED, STILL NO BOWEL MOVEMENT, ATTENDS CLEAN.
--- NOTE | 2021-10-16 14:47 | NUR ---
DR CARPENTER IN TO SEE PT AND DISCUSS PLAN. PT HAS BEEN MORE ACTIVE AND UNCOMFORTABLE LOOKING, BITING AT TUBE. PRECEDEX AT 1MCG/KG/HR AND FENTANYL AT 100MCG/HR. VALIUM 20MG GIVEN.
--- NOTE | 2021-10-16 14:55 | NUR ---
RT IN TO DO ALBUTEROL NEB TX PER DR CARPENTER ORDER. PT HAS CALMED SINCE VALIUM GIVEN.
--- NOTE | 2021-10-16 16:45 | NUR ---
DR CARPENTER ON UNIT, UPDATED ON PT STATUS INCLUDING CONT LOW URINE OUTPUT OF 20-25ML/HR, PLAN TO CONT TO MONITOR FOR NOW. ALSO DISCUSSED PTS OVERALL SEDATION AND AGITATION LEVEL. PLAN TO START PT ON A VERSED GTT IN HOPES OF MORE CONTINUOUS SEDATION AND LESS DOSES OF VALIUM. ALSO DISCUSSED NO BOWEL MOVEMENT, WILL CONT TO MONITOR THAT, NO NEW ORDERS AT THIS TIME. RT IN TO ASSESS PT, TURNED FIO2 UP TO 40% FOR SPO2 92%.
--- NOTE | 2021-10-16 17:15 | NUR ---
VERSED DRIP STARTED AT 4MG/HR. PT REPOSITIONED IN BED, RESTRAINTS RELEASED AND REAPPLIED WITH CMS INTACT. PT HAS BEEN CALMING SINCE VERSED STARTED, HAD BEEN KICKING AND SCRUNCHING HERSELF DOWN IN BED WITH FACIAL GRIMACING, TEARS IN EYES.
--- NOTE | 2021-10-16 17:30 | NUR ---
NEW IV STARTED IN LEFT FOREARM. PT IS RESPONSIVE TO PAIN OF NEEDLE POKE, ATTEMPTING TO WITHDRAW ARM AND FACIAL GRIMACING.
--- NOTE | 2021-10-16 18:19 | NUR ---
SPO2 DOWN TO 88-90%, ATTEMPT TO INLINE SUCTION WITH MINIMAL RETURN OF SECRETIONS. RT CALLED AND IN TO CHECK ON PT.
--- NOTE | 2021-10-16 18:20 | NUR ---
PRECEDEX GTT TITRATED DOWN TO 0.8MCG/KG/HR.
--- NOTE | 2021-10-16 18:20 | NUR ---
RT TURNED FIO2 TO 50% FROM 40%. LUNGS SOUNDS NO CHANGE FROM EARLIER ASSESSMENT.
--- NOTE | 2021-10-16 18:34 | NUR ---
PT CURRENTLY HAS VERSED GTT INFUSING AT 4MG/HR, PRECEDEX GTT INFUSING AT 0.8MCG/KG/HR, FENTANYL GTT INFUSING AT 100MCG/HR. PT IS RESTING WITH EYES CLOSED, FACE RELAXED, NO SIGNS OF PAIN OR DISCOMFORT. SPO2 94% ON FIO2 50%, PEEP 8, TV 400.
--- NOTE | 2021-10-16 18:34 | NUR ---
XRAY IN TO DO CHEST XRAY
--- NOTE | 2021-10-16 18:51 | NUR ---
DAUGHTER IN TO VISIT PT. QUESTIONS ANSWERED, STATES SHE WILL SIT IN WITH HER MOM THIS EVENING.
--- NOTE | 2021-10-16 19:30 | NUR ---
REPORT RECIEVED FROM RAJINDER WEINSTEIN. PATIENT IS ON PRECEDEX 0.8 MCG/HR, FENTANYL 100 MCG/HR, AND VERSED 6 MG/HR. VENT SETTINGS VC/AC FIO2 50%, RR 16, PEEP 8.0, VT 400. BREATHING IS EQUAL AND UNLABORED. RESTRAINTS ARE ON. DAUGHTER AT BEDSIDE. NO QUESTIONS AT THIS TIME. CALL LIGHT WITHIN REACH NO FUTHER NEEDS.
--- NOTE | 2021-10-16 19:47 | NUR ---
VERSED TITRATED TO 6 MG/HR. PATIENT RESTLESS IN BED. PATIENT COUGHING ON VENT. ORAL SUCTIONED COMPLETE.
--- NOTE | 2021-10-16 20:00 | NUR ---
PATIENT ASSESSMENT COMPLETE. VERSED AT 6MG/HR, FENTYNAL 100 MCG/HR, PRECEDEX 0.8 1 MCG/KG/HR. RASS SCORE BETWEEN -1 TO 2. PATIENT INCREASINGLY MORE AGITATED. LUNG SOUNDS ARE CLEAR IN THE UPPER LOBES AND DIMINISHED IN THE BASES. VENT SETTINGS VC-AC RR 16, FIO2 50%, VT 400, PEEP 8.0. BREATHING EQUAL AND UNLABORED. ORAL SUCTIONED. FEEDINGS AT 50 MLS/HR. PATIENT RESTRAINT CARE COMPLETE. ROM COMPLETE. PULSES FELT STRONG. HEART RATE 60-70 BPM SINUS RHYTHM. LOW GRADE FEVER 99.3. URINE OUTPUT DOCUMENTED HOURLY. YELLOW AND CONCENTRATED URINE. NO BM. BOWEL TONES ACTIVE. FIRM ABDOMEN. SKIN INTACT. IV SITES PATENT. PATIENT REPOSITIONED. CALL LIGHT WITHIN REACH NO FUTHER NEEDS.
--- NOTE | 2021-10-16 20:54 | NUR ---
PATIENT PRECEDEX TITRATED TO 1 MCG/KR/HR. PATIENT STILL RESTLESS. RR INCREASED 30-40. PATIENT ORAL SUCTIONED COMPLETE. THIS RN IN ROOM.
--- NOTE | 2021-10-16 22:00 | NUR ---
RESTRAINT CARE COMPLETE. ROM COMPLETE. PATIENT ORAL SUCTION COMPLETE. VENT SETTING UNCHANGED. BREATHING EQUAL AND UNLABORED. RASS SCORE -2. PATIENT APPEARS TO BE MORE CALM. CALL LIGHT WITHIN REACH NO FUTHER NEEDS.
--- NOTE | 2021-10-16 23:00 | NUR ---
PATIENT VENT SETTINGS UNCHANGED. PATIENT RASS SCORE -2. BREATHING EQUAL AND UNLAORED. ORAL SUCTION COMPLETE.
--- NOTE | 2021-10-17 | NUR ---
PATIENT ASSESSMENT COMPLETE
--- NOTE | 2021-10-17 | NUR ---
PATIENT ASSESSMENT COMPLETE. VERSED RUNNING AT 6 MG/HR, PRECEDEX RUNNING AT 1 MCG/KG/HR, FENTANYL RUNNING AT 100 MCG/HR. TUBE FEEDINGS PROMOTE 1.0 AT 50 MLS/HR. PATIENT RASS SCORE BETWEEN -1 TO -3. LUNG SOUNDS ARE CLEAR IN THE UPPER LOBES AND DIMINISHED IN THE BASES. VENT SETTINGS ARE VC-AC RR 16, VT 400, PEEP 8.0 AND FIO2 50%. BREATHING EQUAL AND UNLABORED. HEART RATE 60-70 BPM. SINUS RHYTHM. AFEBRILE. URINE OUTPUT YELLOW AND CLEAR. NO BM. BOWEL TONES ARE ACTIVE. ABDOMEN IS FIRM. RESTRAINT CARE COMPLETE. ROM COMPLETE. ORAL CARE AND SUCTION DONE. PATIENT REPOSTIONED IN BED. SKIN INTACT. DIAPHORETIC. CALL LIGHT WITHIN REACH NO FUTHER NEEDS.
--- NOTE | 2021-10-17 02:00 | NUR ---
PRECEDEX DRIP TITRATED DOWN TO 0.8 MCG/KG/HR. RESTRAINT CARE COMPLETE. PATIENT REPOSTIONED. VENT SETTINGS UNCHANGED. ORAL SUCTIONING DONE. CALL LIGHT WITHIN REACH NO FUTHER NEEDS.
--- NOTE | 2021-10-17 04:00 | NUR ---
PATIENT ASSESSMENT COMPLETE. VERSED RUNNING AT 6 MG/HR. PRECEDEX AT 0.8 MCG/KG/HR AND FENTANYL 100 MCG/HR. RASS SCORE -2 TO -3. LUNG SOUNDS ARE CLEAR IN THE UPPER LOBES AND DIMINISHED IN THE BASES. VENT SETTINGS VT 400, RR 16, FIO2 50%, PEEP 8.0. OXYGEN SATURATIONS 92-98%. BREATHING EQUAL AND UNLABORED. HEART RATE 70-80 BPM AFEBRILE. SINUS RHYTHM. URINE OUTPUT IS YELLOW AND CLEAR. NO BM. BOWEL TONES ACTIVE. SKIN INTACT. IV SITES PATENTS. REPOSITIONED. RESTRAINT CARE COMPLETE. ROM DONE. PULSES FELT STRONG. PLAN OF CARE UPDATED. CALL LIGHT WITHIN REACH NO FUTHER NEEDS.
--- NOTE | 2021-10-17 04:24 | NUR ---
PATIENT TITRATED DOWN ON PRECEDEX TO 0.6 MCG/KG/HR. VERSED TITRATED DOWN ON 4 MG/HR.
--- NOTE | 2021-10-17 04:53 | NUR ---
TITRATED FENTYNAL DOWN TO 75 MCG/HR. PATIENT ABLE TO OPEN EYES TO VERBAL STIMULI. VENT SETTINGS UNCHANGED. CALL LIGHT WITHIN REACH NO FUTHER NEEDS.
--- NOTE | 2021-10-17 05:30 | NUR ---
PATIENT GRIMICING AND RESTLESS LEGS. AGITATED. FENTYNAL DRIP TITRATED UP TO 100 MCG/HR. VALIUM GIVEN 20 MG IV. PATIENT COUGHING ON VENT. ORAL SUCTION COMPLETE. THIS RN IN ROOM.
--- NOTE | 2021-10-17 07:39 | NUR ---
REPORT RECEIVED FROM JERMAIN CALVILLO. PT IS MOVING IN BED ON AND OFF WITH OCCASIONAL GRIMACING, MOVING ARMS AND MOVING LEGS AND MOVING SELF DOWN IN BED. PT REPOSITIONED. ETT IN PLACE, VENT SETTING FIO2 50%, PEEP 8, TV 400 AND RATE 16, PT IS OVERBREATHING THE VENT AT 18-20. VERSED GTT AT 8MG/HR, PRECEDEX AT 1MCG/KG/HR AND FENTANYL GTT AT 100MCG/HR. ASSESSMENT DONE, LUNGS CLEAR, FEW BOWEL SOUNDS HEARD. PLAN TO DISCUSS WITH MD AND RT PLAN FOR AWAKENING TRIAL FOR TODAY. PT REPOSITIONED UP IN BED, WRIST RESTRAINTS RELEASED WITH CMS INTACT AND REAPPLIED.
--- NOTE | 2021-10-17 07:47 | NUR ---
IN TO SEE PT, UPDATE ON THE NIGHT GIVEN.
--- NOTE | 2021-10-17 08:00 | NUR ---
SEROQUEL GIVEN, PLAN DISCUSSED WITH RT TO BEGIN TURNING DOWN OTHER SEDATION AND WILL EVALUATE IN ONE HOUR. PT IS OCCSIONALLY MOVING WITH SIGNS OF PAIN AND AGITATION AND THEN STOPS FOR A WHILE. AT BEDSIDE REASSURING PT, HOLDING HER HAND AND TALKING TO HER.
--- NOTE | 2021-10-17 08:11 | NUR ---
DR ALLENCH IN TO DISCUSS PLAN FOR THE DAY WITH AND ASSESS PT. VERSED DRIP TURNED DOWN TO 6MG/HR.
--- NOTE | 2021-10-17 08:44 | NUR ---
SPO2 IS 96% AFTER VENT CHANGES. VERSED DRIP TURNED DOWN TO 6MG/HR.
--- NOTE | 2021-10-17 09:08 | NUR ---
VERSED TURNED DOWN TO 4MG/HR.
--- NOTE | 2021-10-17 10:34 | NUR ---
PT VERY AGITATED, WRITHING IN BED, HR UP TO 120'S, SILL KEEPS EYES CLOSED. 20MG IV VALIUM GIVEN PER DR CARPENTER ORDER TO RESUME SEDATION.
--- NOTE | 2021-10-17 10:45 | NUR ---
MD IN WITH RT, PLANNED TO TRY WEANING AND EXTUBATTION. PT DID NOT TOLERATE WEANING TRIALS WITH RT VERY WELL, WITH RR INCREASING TO 40'S, PT STILL NOT FOLLOWING COMMANDS OR OPENING EYES BUT LOOKING SEVERELY ANXIOUS AND UNCOMFORTABLE, CONTINUES TO WRITHE AROUND IN BED, GRIMACING AND GAGGING ON TUBE. PLAN WAS TO STILL TRY EXTUBATON WITH ANESTHESIA PROVIDER AT BEDSIDE, HOWEVER PLAN WAS CHANGED AFTER ABG RESULTS CAME BACK WITH PTS WEANING TRIAL. PT ALSO HAD INCREASED HR UP TO 120'S AND INCREASE IN DIAPHORESIS. AFTER MD VIEWED ABG RESULTS PLAN TO EXTUBATE WAS CHANGED, AND MD ORDERED PT TO BE PUT BACK ON SEDATION. WILL RESTART DRIPS AND TITRATE UP INDICATED BT PTS RESPONSE.
--- NOTE | 2021-10-17 12:00 | NUR ---
MD TRANSFERRING PT, BED CONFIRMED AT [facility]. [facility] CONTACTED, CALLED AND UPDATED.
--- NOTE | 2021-10-17 12:30 | NUR ---
PT IS RESTING COMFORTABLE, FOR APPROX THE LAST HOUR, WITH PRECEDEX INFUSING AT 1MCG/KG/HR, VERSED AT 12MG/HR, AND FENTANYL 200MCG/HR AND SOME DOSES OF 20MG IV VALIUM.
--- NOTE | 2021-10-17 12:32 | NUR ---
ARRIVED TO SEE PT, REMAINS AT BEDSIDE.
--- NOTE | 2021-10-17 13:00 | NUR ---
[facility] HAS ARRIVED AND BEGUN PREPARING PT FOR TRANSFER. [facility].
--- NOTE | 2021-10-17 13:25 | NUR ---
INFORMED THAT [facility] PT'S HAS JUST LEFT. PRAYED OVER PT, STILL ON VENT. WILL CHECK BACK
--- NOTE | 2021-10-17 13:59 | NUR ---
PT LEFT WITH [facility].
--- NOTE | 2021-10-17 14:10 | NUR ---
CONNECTED WITH [facility] PT WAS BEING READIED FOR [facility]. HAD PRAYER WITH HIM,GAVE COMFORT AND A [facility] PACK LIST. TRIED TO GET UP TO DATE VISITATION AT CHAPLAIN INNA'S OFFICE CHECKING AND WILL GET BACK TO ME. WILL CONNECT WITH GUNJAN I AM UPDATED.
--- NOTE | 2021-10-17 15:01 | NUR ---
REPORT GIVEN TO PEPE CALVILLO.
== END 2021-10-17 13:00 | disposition short-term general hospital (02) | DRG 917 ==
LOC: ED 19:14 → CCU 10-08 00:31
PROVIDERS: ADMIT Internal Medicine; ATTEND Internal Medicine
PROC: 02HV33Z Insertion of Infusion Device into Superior Vena Cava, Percutaneous Approach (ICD-10-PCS; principal; 2021-10-07)
PROC: B548ZZA Ultrasonography of Superior Vena Cava, Guidance (ICD-10-PCS; 2021-10-07)
PROC: 0BH17EZ Insertion of Endotracheal Airway into Trachea, Via Natural or Artificial Opening (ICD-10-PCS; 2021-10-07)
PROC: 5A1955Z Respiratory Ventilation, Greater than 96 Consecutive Hours (ICD-10-PCS; 2021-10-07)
PROC: 3E033XZ Introduction of Vasopressor into Peripheral Vein, Percutaneous Approach (ICD-10-PCS; 2021-10-07)
DX: T50.991A Poisoning by other drugs, medicaments and biological substances, accidental (unintentional), initial encounter (principal); G92.8 Other toxic encephalopathy; J96.01 Acute respiratory failure with hypoxia; E87.2 Acidosis; F10.239 Alcohol dependence with withdrawal, unspecified; Z20.822 Contact with and (suspected) exposure to COVID-19; R34 Anuria and oliguria; F41.9 Anxiety disorder, unspecified; F32.A Depression, unspecified; F39 Unspecified mood [affective] disorder; G43.909 Migraine, unspecified, not intractable, without status migrainosus; I10 Essential (primary) hypertension; Z90.49 Acquired absence of other specified parts of digestive tract; Z98.51 Tubal ligation status; Z88.8 Allergy status to other drugs, medicaments and biological substances; Z79.899 Other long term (current) drug therapy; Y90.7 Blood alcohol level of 200-239 mg/100 ml
CPT/HCPCS: 31500; 31720; 36415; 36556; 36600; 70450; 71045; 74018; 80048; 80053; 80202; 81001; 82010; 82140; 82803; 83036; 83605; 83690; 83735; 83930; 84100; 84443; 84703; 85025; 86140; 87040; 87070; 87205; 93005; 93010; 94002; 94003; 94640; 97110; 97140; 99285-25; A9270; C9113; C9803; G0480; J0696; J1650; J1815; J1885; J1940; J1953; J2250; J2270; J2405; J2560; J2704; J3010; J3360; J3370; J3411; J3475; J3480; J7030; J7040; J7060; J7070; J7121; U0003

== ENCOUNTER 2022-02-07 15:47 | Emergency (ER) | payer BC ==
[~2022-02-07] VITALS: Ht 154.9 cm; Wt 80.9 kg
--- NOTE | ~2022-02-07 | EKG ---
[facility] [address] [place], [place] [address] Draft EK completed, results pending confirmation PATIENT NAME: INAJAQUELIN CHLOÉ Electrocardiogram DATE OF : 79 PHYSICIAN: PRELIMINARY REPORT #: [id number] REPORT IS CONFIDENTIAL AND NOT TO BE RELEASED WITHOUT AUTHORIZATION
[~2022-02-07 15:47] MED LIST changes: +DICLOFENAC SOD100 G1 TOP; +IBUPROFEN400 MG PO; +MELOXICAM15 MG PO; +OMEPRAZOLE40 MG PO; +RIZATRIPTAN10 MG PO
--- OUTSIDE RECORDS SUMMARY | 2022-02-07 15:50 | XMS ---
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 Guidelines - PDMP CARE PROVIDERS LANDON SEAY Internal Medicine Current PHONE: [phone] HOLLY DE LA GARZA [facility] 05/22/2018-Current PHONE: [phone] LELAND SHERMAN Internal Medicine: Pulmonary Disease 07/02/2018-Current PHONE: Unknown ROSA YEUNG Nurse Practitioner 05/12/2019-Current PHONE: [phone] [facility] 09/27/2020-[facility] PHONE: [phone] Conrad has no Care Guidelines for this patient. Care History Medical/Surgical 09/27/2020 [facility] - PATIENT IS [facility] ELIGIBLE, PLEASE REFER PATIENT TO [facility] FOR NON EMERGENT MEDICAL NEEDS. [facility] CAN SEE PATIENTS SAME DAY FOR APTS IF PATIENT CALLS FIRST THING IN THE MORNING. E.D. VISIT COUNT (12 MO.) [address] [place] [address] TOTAL 5 NOTE: Visits indicate total known visits. 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 - Alcohol dependence with [...] substances - Essential (primary) hypertension - Other jail (current) drug therapy INPATIENT VISIT TRACKING (12 MO.) 10/27/2021 16:44 [facility] [place] TYPE: Inpatient Rehab DIAGNOSES: - Other malaise - Acute respiratory failure with hypoxia - Encephalopathy, unspecified - Suicide attempt, initial encounter - Other reduced mobility - Major depressive disorder, recurrent, in partial remission - Alcohol dependence, in remission - Stridor - Other specified health status - Critical illness myopathy 10/17/2021 16:34 [facility] [place] TYPE: Medical Surgical COMPLAINT: - Respiratory failure / ETOH WD DIAGNOSES: - Respiratory failure / ETOH WD 10/08/2021 00:[address] [facility] [place] TYPE: Critical Care COMPLAINT: - TOXIC ENCEPHALOPATHY RESPIRATORY FAILURE DIAGNOSES: - OTHER TOXIC ENCEPHALOPATHY - Other buttermaker continuous churn (current) drug therapy - Other buttermaker continuous churn (current) drug therapy - Tubal ligation status - Alcohol dependence with withdrawal, unspecified - Allergy status to other drugs, medicaments and biological substances - Acute respiratory failure with hypoxia - Blood alcohol level of 200-239 mg/100 ml - Essential (primary) hypertension - Acidosis - DEPRESSION, UNSPECIFIED - Anxiety disorder, unspecified - Tubal ligation status - Unspecified mood [affective] disorder - Acute respiratory failure with hypoxia - Acquired absence of other specified parts of digestive tract - Migraine, unspecified, not intractable, without status migrainosus - Allergy status to other drugs, medicaments and biological substances - Acquired absence of other specified parts of digestive tract - DEPRESSION, UNSPECIFIED - Poisoning by other drugs, medicaments and biological substances, accidental (unintentional), initial encounter - OTHER TOXIC ENCEPHALOPATHY - Depression, unspecified - Blood alcohol level of 200-239 mg/100 ml - Contact with and (suspected) exposure to COVID-19 - Other toxic encephalopathy - Migraine, unspecified, not intractable, without status migrainosus - Unspecified mood [affective] disorder - Essential (primary) hypertension - Anuria and oliguria - Acidosis - Anxiety disorder, unspecified - Alcohol dependence with withdrawal, unspecified - Anuria and oliguria [email or web address]
[2022-02-07] MEDS ORDERED: FENOFIBRATE160 MG PO (16:06)
[2022-02-07] MEDS ORDERED: CITALOPRAM HBR40 MG PO (16:06)
[2022-02-07] MEDS ORDERED: GABAPENTIN400 MG PO (16:06)
[2022-02-07] MEDS ORDERED: TIZANIDINE HCL4 MG PO (16:07)
[2022-02-07] MEDS ORDERED: PANTOPRAZOLE SO40 MG PO (16:07)
[2022-02-07] MEDS ORDERED: LIDOCAINE1 EACH TD (16:07)
[2022-02-07] MEDS ORDERED: HYDROXYZINE HCL25 MG PO (16:08)
[2022-02-07] MEDS ORDERED: PREGABALIN75 MG PO (16:08)
[2022-02-07] MEDS ORDERED: METOPROLOL TART25 MG PO (16:08)
[2022-02-07] MEDS ORDERED: PRAZOSIN HCL1 MG PO (16:09)
[2022-02-07] MEDS ORDERED: PROMETHAZINE HC25 M1 PO (16:09)
== END 2022-02-07 17:56 | disposition home or self-care (01) ==
LOC: ED 15:47
DX: F41.9 Anxiety disorder, unspecified (principal); I10 Essential (primary) hypertension; G43.909 Migraine, unspecified, not intractable, without status migrainosus; Z88.8 Allergy status to other drugs, medicaments and biological substances; Z79.899 Other long term (current) drug therapy
CPT/HCPCS: 36415; 71045; 80053; 83735; 84484; 85025; 93005; 96374; 99285-25; J1790

== ENCOUNTER 2022-04-23 11:35 | Inpatient (IN) | payer BC ==
[~2022-04-23] VITALS: Ht 154.9 cm; Wt 76.6 kg
[~2022-04-23 11:35] MED LIST changes: +CHILD'S OMEGA-1 EACH PO; +EMERGEN-C 500500 MG PO; +GABAPENTIN400 MG PO; +IRON325 M1 PO; +LIDOCAINE1 EACH TD; +PANTOPRAZOLE SO40 MG PO; +PRAZOSIN HCL1 MG PO; +THIAMINE HCL250 MG PO
--- OUTSIDE RECORDS SUMMARY | 2022-04-23 11:38 | XMS ---
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 No recent Security Events currently on file CRITERIA MET - PDMP CARE PROVIDERS SUSANNA GUO Physician Home Improvement Contractor Current PHONE: Unknown LANDON SEAY Internal Medicine Current PHONE: [phone] Jeniffer Munson Nurse 02/13/2022-Current PHONE: [phone] HOLLY DE LA GARZA [facility] 05/22/2018-Current PHONE: [phone] LELAND SHERMAN Internal Medicine: Pulmonary Disease 07/02/2018-Current PHONE: Unknown ROSA YEUNG Nurse Practitioner 05/12/2019-Current PHONE: [phone] [facility] 09/27/2020-[facility] PHONE: [phone] Conrad has no Care Guidelines for this patient. Care History Medical/Surgical 09/27/2020 [facility] - PATIENT IS [facility] ELIGIBLE, PLEASE REFER PATIENT TO [facility] FOR NON EMERGENT MEDICAL NEEDS. [facility] CAN SEE PATIENTS SAME DAY FOR APTS IF PATIENT CALLS FIRST THING IN THE MORNING. E.D. VISIT COUNT (12 MO.) [address] [facility] [address] [facility] TOTAL 6 NOTE: Visits indicate total known visits. 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 - Anxiety disorder, unspecified - Essential (primary) hypertension - Migraine, unspecified, not intractable, without status migrainosus - Allergy status to other drugs, medicaments and biological substances - Other chest pain 10/07/2021 19:15 [facility] [place] TYPE: Emergency COMPLAINT: - POSS OVERDOSE 09/26/2021 11:03 [facility] [place] TYPE: Emergency COMPLAINT: - SHAKY, BLURRED VISION, VOMITING, RAPID HEART RATE DIAGNOSES: - Essential (primary) hypertension - Migraine, unspecified, not intractable, without status migrainosus - Allergy status to other drugs, medicaments and biological substances - Alcohol dependence with withdrawal, unspecified - Other fpc (current) drug therapy 09/23/2021 12:54 [facility] [place] TYPE: Emergency COMPLAINT: - POSS DETOX DIAGNOSES: - Migraine, unspecified, not intractable, without status migrainosus - Alcohol dependence with withdrawal, unspecified - Exposure to other specified factors, initial encounter - Allergy status to other drugs, medicaments and biological substances - Essential (primary) hypertension - Other fpc (current) drug therapy - Strain of muscle, fascia and tendon of lower back, initial encounter 06/11/2021 10:06 [facility] [place] TYPE: Emergency COMPLAINT: - COVID +, FLU SYMPTOMS DIAGNOSES: - Essential (primary) hypertension - Migraine, unspecified, not intractable, without status migrainosus - 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 - Allergy status to other drugs, medicaments and biological substances - COVID-19 INPATIENT VISIT TRACKING (12 MO.) 10/27/2021 16:44 [facility] [place] TYPE: Inpatient Rehab DIAGNOSES: - Major depressive disorder, recurrent, in partial remission - Suicide attempt, initial encounter - Acute respiratory failure with hypoxia - Other specified health status - Alcohol dependence, in remission - Other reduced mobility - Encephalopathy, unspecified - Critical illness myopathy - Other malaise - Stridor [facility]21 [facility] COMPLAINT: - Respiratory failure / ETOH WD DIAGNOSES: - Respiratory failure / ETOH WD 10/08/2021 00:31 [facility] [place] TYPE: Critical Care COMPLAINT: - TOXIC ENCEPHALOPATHY RESPIRATORY FAILURE DIAGNOSES: - Depression, unspecified - Alcohol dependence with withdrawal, unspecified - Anuria and oliguria - Anxiety disorder, unspecified - Poisoning by other drugs, medicaments and biological substances, accidental (unintentional), initial encounter - 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 - Unspecified mood [affective] disorder - OTHER TOXIC ENCEPHALOPATHY - Acquired absence of other specified parts of digestive tract - Acidosis - Migraine, unspecified, not intractable, without status migrainosus - Other toxic encephalopathy - Blood alcohol level of 200-239 mg/100 ml - Alcohol dependence with withdrawal, unspecified - Acute respiratory failure with hypoxia - Blood alcohol level of 200-239 mg/100 ml - Allergy status to other drugs, medicaments and biological substances - Acidosis - Tubal ligation status - OTHER TOXIC ENCEPHALOPATHY - Tubal ligation status - Essential (primary) hypertension - DEPRESSION, UNSPECIFIED - DEPRESSION, UNSPECIFIED - Other fpc (current) drug therapy - Allergy status to other drugs, medicaments and biological substances - Essential (primary) hypertension - Migraine, unspecified, not intractable, without status migrainosus - Anuria and oliguria - Acquired absence of other specified parts of digestive tract - Contact with and (suspected) exposure to COVID-19 - Acute respiratory failure with hypoxia - Anxiety disorder, unspecified - Unspecified mood [affective] disorder [email or web address]
[2022-04-23] MEDS ORDERED: ATORVASTATIN CA20 MG PO (11:59)
[2022-04-23] MEDS ORDERED: LOSARTAN POTASS50 MG PO (11:59)
[2022-04-23] MEDS ORDERED: LISINOPRIL10 MG PO (11:59)
[2022-04-23] MEDS ORDERED: IBUPROFEN800 MG PO (11:59)
[2022-04-23] MEDS ORDERED: CELECOXIB200 MG PO (12:00)
--- NOTE | 2022-04-23 16:22 | EKG ---
[facility] [address] [facility] [place] [address] Signed Normal sinus rhythm T wave abnormality, consider anterior ischemia Abnormal ECG When compared with ECG of 07-FEB-2022 15:49, No significant change was found Confirmed by ELIS SEARS MD ([id number]) on 04/23/2022 4:22:32 PM Electronically Signed By: ELIS SEARS MD 04/23/221621 PATIENT NAME: JAQUELIN BUCKLEY CHLOÉ Electrocardiogram DATE OF : 79 PHYSICIAN: ELIS SEARS MD REPORT #: [id number] REPORT IS CONFIDENTIAL AND NOT TO BE RELEASED WITHOUT AUTHORIZATION
--- NOTE | 2022-04-23 21:15 | NUR ---
REPORT RECEIVED FROM ABHISHEK IN ED. PT IS RECEIVING ROCEPHIN AND ZOVIRAX PRIOR TO ADMIT. SHANIAO WILL BE HUNG PT LEAVES ED. ED TO TRANSPORT PT TO ROOM 211.
--- NOTE | 2022-04-23 21:23 | NUR ---
PT TO ROOM 111 STRETCHER, WITH EQUIPMENT APPLICATION SPECIALIST. 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 R/A.
--- NOTE | 2022-04-23 22:15 | NUR ---
PT UP TO VOID INDEPENDENTLY ONCE TO FLOOR. TEL # [address], ADMISSION PROCESS COMPLETED. LIVES HOME WITH . H/O SUICIDE ATTEMPT 2021, DENIES ANY THOUGHTS OF SUICIDE SINCE THEN. [facility] STATES SHE TAKES MEDICATION PERSCRIBED BY THIS DR. HAS BACK PAIN SHE TAKES MEDICATION FOR, WELL A RECENT HISTORY OF BURSITIS RIGHT HIP. PLANS TO RETURN HOME WHEN DISCHARGED. PRIOR TO COMPLETION OF ADMISSION, VANCOMYCIN WAS SCANNED AND STARTED IN PT RIGHT HAND. PT COMPLAINED OF PAIN AFTER APPROX 10 MIN OF INFUSING. NOTED RIGHT HAND SL PUFFY. IV STOPPED, PRIMARY RN WAS TOLD. IV WAS DC'D INTACT.
--- NOTE | 2022-04-24 00:12 | NUR ---
SCD'S PLACED PER ORDER.
--- NOTE | 2022-04-24 03:20 | NUR ---
PT NOTES THAT THE NUMBNESS IN HER FEET HAS RESOLVED. SHE WAS STEADY GETTING UP TO THE BATHROOM. PT STATES SHE FEELS FINE . NO DIZZINESS OR LIGHTHEADEDNESS WHEN UP. PAIN IN ABD IS RELIEVED. NO FURTHER NAUSEA.
--- NOTE | 2022-04-24 05:13 | NUR ---
PATIENT CALLED TO USE THE Bacula. SBA. PATIENT IS BACK IN BED. SCD'S ON. NO OTHER CARE NEEDS AT THIS TIME.
--- NOTE | 2022-04-24 05:40 | NUR ---
LAB IS IN TO DRAW AM LABS. NO OTHER NEEDS.
--- NOTE | 2022-04-24 07:30 | NUR ---
PT LAYING IN BED. PT SAT UP IN BED FOR BREAKFAST. PT GIVEN NEW ICE WATER. FACED CLEANSED W WARM WASH CLOTH BY STRAIGHT EDGER PER PT REQ. PT DECLINED WARM BLANKET. NO FURTHER NEEDS. CALL LIGHT WITHIN REACH.
--- NOTE | 2022-04-24 07:43 | NUR ---
REPORT FROM BAILEY DAMICO RN.
--- NOTE | 2022-04-24 08:25 | NUR ---
MORNING ASSESSMENT IS COMPLETE. IV VANCO INFUSING FOR ONE HOUR. PATIENT IS TO CONTINUE ON NS@125. DISCUSSED PATIENT'S RESOLVING SYMPTOMS, SHE INDICATED THAT THE FOOT NUMBNESS IS ALMOST GONE. PATIENT DOES SAY THAT SHE HAS A HEADACHE UPON STANDING, DISCUSSED SPINAL HEADACHES WITH PATIENT AND SHE UNDERSTANDS THAT LYING FLAT MAY HELP THE HEADACHE PAIN. PATIENT IS SITTING UP IN BED TO EAT BREAKFAST.
--- NOTE | 2022-04-24 09:45 | NUR ---
PT IN BED. VITALS AND I'S AND O'S TAKEN. NURSE ENTERED ROOM. NURSE EMILY MANUEL I PUT IN IV FLUIDS INTO CHART. IV FLUIDS PUT INTO CHART PER NURSE REYifan. FRESH WATER GIVEN. NO FURTHER NEEDS. CALL LIGHT WITHIN REACH.
--- NOTE | 2022-04-24 09:47 | NUR ---
IV ROCEPHIN INFUSING FOR 30 MINUTES, TO BE FOLLOWED BY MAGNESIUM RIDER. PATIENT DOES INDICATE THAT HER NOSE HURTS FROM FALLING. ICE BAG PROVIDED.
--- NOTE | 2022-04-24 09:55 | NUR ---
PATIENT GIVEN TYLENOL FOR 6/10 HEADACHE, NOSE PAIN.
--- NOTE | 2022-04-24 10:57 | NUR ---
PATIENT UP TO BATHROOM TO VOID, BM. PATIENT INDICATES THAT SHE IS HAVING LOOSE STOOL AND PLAN TO MENTION TO THE DOCTOR.
--- NOTE | 2022-04-24 13:01 | NUR ---
SPOKE WITH DR HARRIS REGARDING SURGERY CANCELLATION ON SUNDAY. SHE SAID HER FFICE WOULD CALL PT TO RESCHEDULE.
--- NOTE | 2022-04-24 13:31 | NUR ---
PATIENT RESTING IN BED AND VISITING WITH HER . PATIENT HAS NO NURSE CARE NEEDS AND PATIENT REPORT HAS BEEN GIVEN TO THIS RN BY RAJINDER DIAZ. THIS RN WILL BE TAKING OVER PATIENT'S CARE NEEDS AT THIS TIME.
--- NOTE | 2022-04-24 13:55 | NUR ---
PT IN BED. PT ASSISTED TO BATHROOM. VITALS AND I'S AND O'S TAKEN. NURSE NOTIFIED OF HIGH BP. NO FURTHER NEEDS. CALL LIGHT WITHIN REACH.
--- NOTE | 2022-04-24 14:12 | NUR ---
EMILYRN CALLED AND GOT AN ORDER FOR PATIENT'S COZAAR. PATIENT IS NO ORTHOSTATIC AND IS HYPERTENSIVE AT THIS TIME WITH ORTHOSTATICS JUST PERFORMED AND GETS TACHYCARDIC WELL. PATIENT'S AND DAUGHTER REMAIN IN THE ROOM. AFTERNOON ASSESSMENT COMPLETE. CALL LIGHT IN REACH. PATIENT GIVEN A FAN HER ROOM IS FAIRLY WARM. PATIENT HAD NO OTHER CARE NEEDS AT THIS TIME.
--- NOTE | 2022-04-24 14:23 | NUR ---
PAOLA'S FAMILY HAS GONE HOME AND PATIENT IS RESTING IN BED AND WAS JUST GIVEN HER COZAAR. PATIENT DENIES ANY OTHE CARE NEEDS AT THIS TIME. CALL LIGHT IS IN REACH.
--- NOTE | 2022-04-24 14:46 | NUR ---
PATIENT RESTING IN BED AND AFTERNOON ASSESSMENT COMPLETE. PATIENT DENIES ANY CARE NEEDS AND SAYS SHE IS FEELING A LITTLE BETTER AFTER SHE HAS GOT THE FAN. CALL LIGHT IS IN REACH.
--- NOTE | 2022-04-24 17:51 | NUR ---
PT LAYING IN BED. VITALS AND I'S AND O'S TAKEN. NO FURTHER NEEDS. CALL LIGHT WITHIN REACH.
--- NOTE | 2022-04-24 17:55 | NUR ---
THIS RN CALLED PATIENT REMAINS HYPERTENSIVE AND TACHYCARDIC. HR=90'S-120. PATIENT DENIES PAIN B/P 173/106 AND 180/115. IS GOING TO PUT IN SOME NEW ORDERS FOR IV B/P MEDS. HAD NO OTHER DIRECTIONS FOR THIS RN AT THIS TIME.
--- NOTE | 2022-04-24 19:15 | NUR ---
REPORT RECEIVED FROM RAQUEL CALVILLO. PT IS AWAKE AND ALERT. HAS SOME CRAMPING IN HER LOWER ABD THAT IS TOLERABLE AT THIS TIME. PT WILL CONTACT HER FAMILY FOR THE MED DR HARRIS GAVE HER FOR HER ABD CRAMPING.
--- NOTE | 2022-04-24 19:25 | NUR ---
APRESOLINE 10MG SIVP OVER 5 MINUTES FOR B/P 181/101. SHIFT REPORT GIVEN TO RAJINDER DAMICO. PATIENT JUST REMEMBERED SHE WAS TAKING A LOW DOSE CONTROL PILL FOROM THE ACCOUNT CONTACT ASSOCIATE AND IS HAVING CRAMPING AND IS CONCERNED THE CRAMPING IS BECAUSE SHE HAS MISSED A DOSE. THIS WAS PASSED ON TO WENDY THE CHARGE NURSE AND RAJINDER DAMICO.
--- NOTE | 2022-04-24 20:43 | NUR ---
PT CURRENTLY IN BED, TEL READING HR 99-105'S, HOWEVER, WHEN PT UP TO BATHROOM, HEART RATE UP NOTED IN CCU HIGH 135, SL SOB NOTED WHEN PT BACK TO BED, WITHIN MIN, HR 115 AFTER LAYING DOWN, STATES SHE NOTICES AN INCREASE IN HR WHEN UP. I/O COMPLETE, PT WITH NO OTHER NEEDS AT THIS TIME.
--- NOTE | 2022-04-24 21:46 | NUR ---
DR OVALLES NOTIFIED OF PT'S BP RESULTS 2 HRS AFTER APRESOLINE GIVEN. PT ALSO HAS HAD 4500 MLS OUTPUT AND HAS IVF MAINTENANCE RUNNING. ORDER TO DC MAINTENANCE FLUIDS TAKEN.
--- NOTE | 2022-04-24 22:15 | NUR ---
PT RECEIVED A PICTURE OF THE MED DR HARRIS STARTED NORMA. IT IS FEMYNOR, AN ESTRADIOL MEDICATION. SHE ALSO STATED DR HARRIS DID NOT THINK IT WAS EFFECTIVE. WILL PASS THIS INFO TO DR OVALLES.
--- NOTE | 2022-04-25 00:21 | NUR ---
PT'S BP HAS COME DOWN TO 159/89. SHE REQUESTED TYLENOL FOR LEFT HIP PAIN AND MELATONIN TO SLEEP. LIGHTS ARE DOWN PT IS TRYING TO GO TO SLEEP.
--- NOTE | 2022-04-25 03:07 | NUR ---
PT UP TO THE BATHROOM TO VOID. VOIDED 700 MLS LIGHT CLEAR URINE. PT'S BP AFTER GETTING UP WAS 160/97 MAP OF 113. PT SLEPT. STATES SHE IS FEELING BETTER.
--- NOTE | 2022-04-25 05:46 | NUR ---
PT WITH EYES CLOSED, LAB COMPLETED LAB DRAW, VS COMPLETED.
--- NOTE | 2022-04-25 07:30 | NUR ---
THIS RN RECEIVED SHIFT REPORT FROM RAJINDER DAMICO. PATIENT RESTING QUIETLY IN BED AND LAB IS HER DRAWING AM LABS. PATIENT HAS NO NURSE CARE NEEDS A THIS TIME AND CALL LIGHT IS IN REACH.
--- NOTE | 2022-04-25 08:37 | NUR ---
THIS RN IN TO SEE PATIENT. PATIENT HAS SOME MINOR ACHES AND PAINS FROM HER FALL, BUT SAYS SHE IS FEELING MUCH BETTER AFTER A GOOD NIGHTS SLEEP. AM ASSESSMENT COMPLETE AND MEDS GIVEN. PATIENT IS NOW UP IN THE BEDSIDE ARMCHAIR AND BREAKFAST ARRIVED AND PATIENT IS EATING. PATIENT DENIES ANY CARE NEEDS AT THIS TIME. CALL LIGHT IS IN REACH.
--- NOTE | 2022-04-25 09:10 | NUR ---
THIS RN BACK IN TO SEE PATIENT AND SHE ATE 100% OF BREAKFAST. TRAY REMOVED. PATIENT DENIES ANY OTHER CARE NEEDS AT THIS TIME. VANCO UP AND RUNNING. PATIENT WILL CALL IF SHE NEEDS ANYTHING. CALL LIGHT IS IN REACH.
--- NOTE | 2022-04-25 10:49 | NUR ---
THIS RN CHECKED IN ON PATIENT. PATIENT RELAXING ON HER LEFT SIDE ON HER BED PLAYING ON HER PHONE. PATIENT DENIES ANY CARE NEEDS AT THIS TIME. CALL LIGHT IS IN REACH.
--- NOTE | 2022-04-25 11:10 | NUR ---
Spoke with Kay, she denies any needs. Plans on dc to home when cleared medically.
[2022-04-25] MEDS ORDERED: VENTOLIN HFA18 GM INH (11:23)
[2022-04-25] MEDS ORDERED: VOLTAREN ARTHRI20 GM TOP (11:23)
--- NOTE | 2022-04-25 11:24 | NUR ---
MED REC COMPLETE
--- NOTE | 2022-04-25 12:47 | NUR ---
PT CALL LIGHT ON. PT REQUESTS TYLENOL FOR A 3/10 HEADACHE. PT HAS COOL CLOTH ALREADY AT BEDSIDE. SEE MAR FOR MEDICATION GIVEN. PT DENIES ADDITIONAL REQUESTS OR COMPLAINTS. CALL LIGHT WITHIN REACH. BED RAILS UP. PTS PRIMARY RN UPDATED
--- NOTE | 2022-04-25 14:53 | NUR ---
PATIENT SITTING IN SHOWER, HR ABOVE 170. CHECK ON PATIENT AND SHE ENDORSED BEING DIZZY AND FEELING HER HEART RACING. RAJINDER OROZCO, ALSO IN ROOM. PATIENT DRIED OFF, TELE LEADS REPLACED. PATIENT ABLE TO VALSALVA MANEUVER AND PULSE TO THE 140'S. PATIENT MOVED FROM BATHROOM TO CHAIR. DR. OVALLES NOTIFIED. VITALS TAKEN, EKG ORDERED.
--- NOTE | 2022-04-25 15:08 | NUR ---
PATIENT HAS EKG DONE. PATIENT SITTING UP IN CHAIR AND INDICATES THAT SHE FEELS BETTER. PATIENT INDICATED THAT SHE SAT FOR MOST OF HER SHOWER AND FELT FINE, IN THE END SHE STOOD UP AND THAT'S WHEN SHE DID NOT FEEL WELL AND THIS CORRELATES TO HER TACHYCARDIA.
--- NOTE | 2022-04-25 16:35 | NUR ---
PATIENT STILL HAS A 2/10 HEADACHE, BUT SAYS SHE DOES FEEL BETTER. PATIENT RESTING QUIETLY RECLINED IN HER ROOM CHAIR. PATIENT AFTERNOON ASSESSMENT COMPLETE AND SHE DENIES ANY CARE NEEDS AT THIS TIME. CALL LIGHT IS IN REACH AND PATIET WILL CALL IF SHE NEEDS ANY THING.
--- NOTE | 2022-04-25 17:13 | NUR ---
CAME BY AND WE RECHECKED THE PATIENT'S B/P=207/75 WITH HR-93. TALKED TO THE PATIENT AND HER AND INFORMED THEM WE WOULD GIVE THE ORAL MED A LITTLE LONGER TO WORK, BUT THAT THE PATIENT MAY HAVE TO STAY THE NIGHT AND PATIENT AND VERBALIZED UNDERSTANDING. CALL LIGHT IS IN REACH.
--- NOTE | 2022-04-25 17:45 | NUR ---
PATIENT CALLED AND LEFT ARM IV HAS INFILTRATED. IV PULLED IN TACT AND WARM PACK APPLIED TO ARM. NEW 22G IV STARTED IN THE LEFT WRIST AND FLUSHES AND PULLS BLOOD FINE. IV BACK UP AND RUNNING. DINNER TRAY SET UP AND PATIENT EATING AND VISITING WITH HER DAUGHTER WHO IS IN THE ROOM. CALL LIGHT IN REACH. CHILO HAS NO OTHER NEEDS AT THIS TIME.
--- NOTE | 2022-04-25 19:20 | NUR ---
REPORT RECEIVED FROM RAQUEL CALVILLO. NO NEEDS AT THIS TIME.
--- NOTE | 2022-04-25 20:30 | NUR ---
ASSISTED PT TO THE BATHROOM. HER HEART RATE INCREASED TO 140'S WHILE UP. PT DENIES ANY DIZZINESS, LIGHTHEADEDNESS OR OTHER ABNORMAL FEELINGS. VOIDED AND BACK TO BED.
--- NOTE | 2022-04-26 01:20 | NUR ---
SBA. PATIENT CALLED TO USE THE BATHROOM. PATIENT STATED " OH, A LITTLE DIZZY BUT NOT BAD". PATIENT VOIDED 700 ML. PATIENT IS BACK IN BED. DENIES ANY FURTHER CARE OR NEEDS AT THIS TIME.
--- NOTE | 2022-04-26 04:47 | NUR ---
PT STATES SHE HAS A HX OF NIGHTMARES.TONIGHT SHE WAS AWAKENED BY A NIGHTMARE. HER BP WAS ELEVATED AT 169/110 MAP OF 123. SHE WAS VERY DIAPHORETIC. HELPED PT WASH UP, CHANGED GOWN , DRAW SHEET AND PILLOWCASES. PT STATED THAT IN OCTOBER SHE WAS STARTED ON PROZOSIN 1 MG TAB FOR NIGHTMARES. HYDRALAZINE FOR ELEVATED BP GIVEN.
--- NOTE | 2022-04-26 05:28 | NUR ---
PT UP TO THE BSC WITH SBA FOR SAFETY. LIGHTHEADEDNESS RESOLVED . VOIDED. BACK TO BED. TOLERATED THIS WELL.
--- NOTE | 2022-04-26 06:46 | NUR ---
PT REPORTS THE START OF A MIGRAINE HEADACHE. DR OVALLES WAS CALLED AND TORADOL 15 MG IV WAS ORDERED AND GIVEN. SHADES WERE CLOSED AND LIGHTS TURNED DOWN. PT HAS HER EYES CLOSED.
--- NOTE | 2022-04-26 08:30 | NUR ---
REPORT RECEIVED FROM NIGHT RN AND PT. CARE RESUMED. PT IS ALERT AND ORIENTED. SHE IS RESTING IN BED AND DENIES PAIN OR DIZZINESS. ASSESSMENT COPLETED. IVF AT TKO AND IV WNL. PT. DENIES FURTHER NEEDS AND LEFT RESTING WITH CALL LIGHT IN REACH.
--- NOTE | 2022-04-26 09:13 | NUR ---
PT CALLED FOR ASSITANCE TO THE RESTROOM. INDEP OTHER THAN IV POLE. PT AMBULATED TO BATHROOM STEADY ON FEET. PT VOID & BM WROTE ON BOARD. PT PERFORMED OWN EDGAR CARE. THIS CNA2 CHANGED HER LINEN. PT HEARTRATE INCREASED W/ACTIVITY RN CAME IN ROOM. PT STATED SHE WAS "A LITTLE DIZZY & WARM" RN HAD HER LAY BACK IN BED. I GOT HER A COLD CLOTH FOR HER HEAD. RN STAYED IN ROOM. CALL LIGHT IN REACH.
--- NOTE | 2022-04-26 09:15 | NUR ---
PT. HR SHOWN TO BE 140'S ON MONITOR. PT. FOUND ON COMMODE. REPORTS DIZZINESS AND FEELING HOT. ASSISTED BY 1 STAFF BACK TO BED. TEMP IS 99.1 ORAL. WITH REST HR DROPPED TO 103. WILL CONTINUE TO MONITOR.
--- NOTE | 2022-04-26 09:48 | NUR ---
ROUNDING ON PT. SHE STATES SHE IS FEELING BETTER. TEMP IS 98.0 ORAL. PT. DENIES FURTHER NEEDS AND LEFT RESTING WITH CALL LIGHT IN REACH.
--- NOTE | 2022-04-26 10:40 | NUR ---
Spoke with Kay, she denies needs. Feels better today. Per 929 meeting with still awaiting results.
--- NOTE | 2022-04-26 10:41 | NUR ---
PT. REQUESTS TO RESTART PROZOSIN DUE TO NIGHT TERROR EPISODE LAST NIGHT. UPDATED.
--- NOTE | 2022-04-26 12:40 | NUR ---
PATIENT GIVEN 4MG OF IV ZOFRAN FOR NAUSEA AFTER TRYING TO EAT LUNCH.
--- NOTE | 2022-04-26 14:47 | NUR ---
PATIENT SITTING UP IN BED RETCHING AND HAD SMALL URINE INCONTINENCE. PATIENT MOVED TO CHAIR, LINENS CHANGED. ICE CHIPS PROVIDED.
--- NOTE | 2022-04-26 15:39 | NUR ---
CALL TO DR. OVALLES RE: PATIENT NAUSEA AND TACHYCARDIA. HERE TO SEE PATIENT.
--- NOTE | 2022-04-26 16:10 | NUR ---
PT. C/O CONTINUED NAUSEA BUT REFUSES NAUSEA MEDS. BOWEL TONES ACTIVE THROUGHOUT AND PT. REFUSES NAUSEA MEDS. PT. C/O EPIGASTRIC AND RUQ PAIN WITH PALPATION THAT IS SHARP. SHE IS DIAPHORETIC AND GIVEN FAN AND COOL WET WASHCLOTH. WILL CONTINUE TO MONITOR.
--- NOTE | 2022-04-26 17:01 | NUR ---
CALL TO DR. OVALLSE RE: LACTIC OF 3.6. VITALS DONE AND HE IS REVIEWING CT SCAN.
--- NOTE | 2022-04-26 18:01 | NUR ---
NEURO ASSESSMENT COMPLETED. PT. REPORTS NUMBNESS AND TINGLING IN FEET THAT STARTED APROX. 2 HOURS AGO. SHE C/O CONTINUED 10/10 LOWER BACK PAIN THAT IS THROBBING AND SENSITIVE TO TOUCH. SMALL AMOUNT OF BRUISING AT LUMBAR PUNCTURE SITE. PT. CONTINUES TO BE RESTLESS. ADMIN LIDOCAINE PATCH AND AWAITING CT RESULTS. UPDATED BY CHARGE.
--- NOTE | 2022-04-26 18:45 | NUR ---
PT. ADMIN GI COCKTAIL. AT BEDSIDE. SHE REPORTS CONTINUED NAUSEA AND BACK, ABDOMINAL PAIN. BOWEL TONES ACTIVE THROUGHOUT AND ABDOMEN TENDER TO PALPATION THROUGHOUT. WILL CONTINUE TO MONITOR.
--- NOTE | 2022-04-26 19:29 | NUR ---
DR. OVALLES HERE, INDICATED THAT HE WILL PUT IN A REPEAT LACTIC LAB AND DECIDE ON IVF AFTER CT RESULTS ARE IN.
--- NOTE | 2022-04-26 20:45 | NUR ---
IN TO ASSIST PT TO THE TOILET, PT BECAME TACHICARDIC, HAD PT RETURN TO BED, VS TAKEN FOR CARDIAC MEDS, RN AWARE OF TP HR/BP, NO FURTHER NEEDS AT THIS TIME
--- NOTE | 2022-04-26 21:05 | NUR ---
CALL RECEIVED FROM SEISMOGRAPH OBSERVER NATASHA OSUNA RN. PER THAO CALVILLO, MD OVALLES SHOULD CALL ALEJANDRO FROM IMAGING AND ALEJANDRO WILL THEN DIRECT MD TO RECEIVE IMAGING RESULTS. MD OVALLES UPDATED AND GIVEN DIRECT IN HOUSE # TO IMAGING, [phone]. PER , HE WAS GIVEN ANOTHER # THAT DIRECTS HIM TO THE NECESSARY GREEN PARTY THAT READS IMAGING. PLANS TO WAIT "A LITTLE BIT" THEN DECIDE POC. INFORMATION PASSED TO PRIMARY RN.
--- NOTE | 2022-04-26 21:30 | NUR ---
CALL RECEIVED FROM ALEJANDRO IN IMAGING, PER ALEJANDRO, IMAGING CHOULD BE AVAILABLE. MD OVALLES MADE AWARE AT [phone]. TO PLACE NEW ORDERS AT THIS TIME. PRIMARY RN ROSA MORA.
--- NOTE | 2022-04-26 22:32 | NUR ---
CRITICAL 2.6 LACTIC RESULT RECEIVED FROM AYDIN Santana FROM LAB. DR OVLALES MADE AWARE AT APPROX [phone]. TELEPHONE ORDER READ BACK FOR REPEAT LACTIC WITH AM LABS. ORDER PLACED BY THIS RN AND PRIMARY RN ROSA UPDATED AND MADE AWARE.
--- NOTE | 2022-04-26 22:56 | NUR ---
DR OVALLES MADE AWARE OF CRITICAL LACTIC RESULTS OF 2.6- TRENDING DOWNWARD FROM 3.6 EARLIER THIS AFTERNOON. TELEPHONE ORDERS READ BACK TO REPEAT LACTIC WITH AM LABS. PRIMARY RN ROSA AWARE AND UPDATED.
--- NOTE | 2022-04-26 23:41 | NUR ---
DR FORREST ON THE FLOOR. NEW ORDERS RECIEVED
--- NOTE | 2022-04-27 04:34 | NUR ---
PT UP TO BR WITH SBA VOIDED NO STATED DIZZINESS, UA COLLECTED AND SENT TO LAB. MENSTRATING CURRRENTLY, LAB NOTIFED. NO C/O OF NAUSEA OR PAIN AT THIS TIME.
--- NOTE | 2022-04-27 04:42 | NUR ---
PT RECIEVED TO ROOM, TRANSFERED PT TO BED WITH SLIDE. PT CONFUSED AND REPEATED SAYING NO. AND CALLING FOR HER DAUGHTER. UNABLE TO REORIENT. ASSESSMENT COMPLETED. PT HAS STAGE II COCCYX ULCER, NEW DRESSING PLACE, PT HAD INCONTINENT LOOSE MUCOID STOOL. PT CLEANED AND INCONTINENT BRIEF PALCED.
--- NOTE | 2022-04-27 05:36 | NUR ---
PT CONTINUES TO BE TACHYCARDIC ON TELEMETRY. AFTER 2099 PT HAD NO MORE NAUSEA OR EMESIS. APLET FOR A 5 DONG BLOCK THEN UP TO BR. STATED NO DIZZINESS OF PAIN. PT IS MENSTRUATING, SCANT RED PAD X2.
--- NOTE | 2022-04-27 10:00 | NUR ---
PT UP TO RESTROOM, DENIES DIZZINESS OR LIGHT HEADEDNESS. EDGAR PAD PROVIDED. PT BACK TO BED. DENIES NEEDS AT THIS TIME. CALL LIGHT IN REACH.
--- NOTE | 2022-04-27 10:40 | NUR ---
No change in plan for dc, home with spouse.
--- NOTE | 2022-04-27 12:40 | NUR ---
PT SITTING UP IN BED, VISITING. DENIES NEEDS AT THIS TIME. CALL LIGHT IN REACH.
--- NOTE | 2022-04-27 16:57 | NUR ---
PT SITTING UP IN BED, VISITING WITH FAMILY. DENIES NEEDS AT THIS TIME. CALL LIGHT IN REACH.
--- NOTE | 2022-04-28 00:05 | NUR ---
pt resint in bed with eyes closed at shift report. pt called to used bathroom, she was steady on her feet and no LOB. denies dizziness. . .she states menstruation has slowed to spoting. she also states she "has headachs with periods". at this time she c/o of abd cramping and pain in her back. she is voiding w/o difficulty 400,500ml with each void. iv infusing w/o difficulty but is easily accluded with writ movment. pt refused new iv start.
--- NOTE | 2022-04-28 02:45 | NUR ---
PT AMBULATED TO BR INDEPENDANTLY. PT DENIES PAIN AT THIS TIME, BACK TO BED, CALL LIGHT AND BEDSIDE TABLE WITH IN REACH.
--- NOTE | 2022-04-28 06:56 | NUR ---
PT LAYING IN BED SUPINE, STATES "i DONT FEEL WELL, I FEEL SOB". VS TAKEN TELE NOTED WHITOUT CHANGE. LUNG SOUND CTA. PERIPHERAL PULSED WEAK. DR OVALLES NOTIFIED, NO NEW ORDERS. STATED HE WILL COME SEE PT.
--- NOTE | 2022-04-28 09:50 | NUR ---
MORNING ASSESSMENT COMPLETE. PT LYING AWAKE IN BED, BREAKFAST AT BEDSIDE. PT UP TO RESTROOM AND BACK TO BED. DENIES NEEDS AT THIS TIME. CALL LIGHT IN REACH.
--- NOTE | 2022-04-28 11:19 | NUR ---
PT UP TO RESTROOM AND BACK TO BED. DENIES FURTHER NEEDS AT THIS TIME. CALL LIGHT INREACH.
--- NOTE | 2022-04-28 13:00 | NUR ---
PT SITTING UP IN BED WATCHING TV. DENIES NEEDS AT THIS TIME. CALL LIGHT IN REACH.
--- NOTE | 2022-04-28 16:10 | NUR ---
PT ROSEANNA PORTER AWAKE AT EDGE OF BED. DENIES NEEDS AT THIS TIME. CALL LIGHT IN REACH.
--- NOTE | 2022-04-28 17:05 | NUR ---
PT SITTING UP IN BED ON THE PHONE. PT DENIES NEEDS AT THIS TIME. CALL LIGHT IN REACH.
--- NOTE | 2022-04-28 18:15 | NUR ---
PT UP TO RESTROOM AND BACK TO SITTING ON EDGE OF BED. PT DENIES FURTHER NEEDS AT THIS TIME. CALL NESTOR RAZA.
--- NOTE | 2022-04-28 19:00 | NUR ---
PATIENT IN BED, VITALS AND I/O'S COMPLETED, CALL LIGHT IN REACH.
--- NOTE | 2022-04-28 23:58 | NUR ---
report recieved earlier, pt was resting in bed watching tv. stated no needs at this time. NAD. pt up to bathroom upon return to bed pt c/o of back pain, medicated for pain, reassessment pt was sleeping,
--- NOTE | 2022-04-29 04:43 | NUR ---
PT RESTING IN BED WITH EYES CLOSED DURING A 5 HOUR BLOCK. HEART RATE ON TELE TONIGHT 87-94. PT UP TO BR INDEPENDANLY. NO C/O OF SOB, ANXITY, OR NIGHT TERRORS.
--- NOTE | 2022-04-29 08:26 | NUR ---
PATIENT SITTING UP IN BED WAITING FOR BREAKFAST. INDEPENDENT IN ROOM. NO OTHER NEEDS AT THIS TIME. CALL LIGHT WITHIN REACH.
--- NOTE | 2022-04-29 09:34 | NUR ---
PATIENT IN BED AFTER USING RESTROOM. VITALS AND I/O'S COMPLETED WITH EXCEPTION OF B/P AT THIS TIME. THIS COMBAT CONTROL MANAGER WILL TAKE AGAIN IN HALF HOUR. NO OTHER NEEDS AT THIS TIME. CALL LIGHT WITHIN REACH.
--- NOTE | 2022-04-29 11:14 | NUR ---
PT AWAKE SITTING IN RELCINER TALKING ON PHONE. DENIES NEEDS AT THIS TIME. CALL LIGHT IN REACH.
--- NOTE | 2022-04-29 13:34 | NUR ---
PT SITTING UP IN CHAIR EATING LUNCH. DENIES NEEDS AT THIS TIME. TELE REMOVED PER MD ORDER. CALL LIGHT IN REACH.
--- NOTE | 2022-04-29 14:28 | NUR ---
PATIENT LAYING IN BED, VITALS AND I/O'S COMPLETED. NO OTHER NEEDS AT THIS TIME. CALL LIGHT WITHIN REACH.
--- NOTE | 2022-04-29 15:27 | NUR ---
PT RESTING IN BED WITH EYES CLOSED, AWAKENS EASILY. DENIES NEEDS AT THIS TIME. CALL LIGHT IN REACH.
--- NOTE | 2022-04-29 17:12 | NUR ---
PT LYING IN BED AWAKE. PRN VALIUM GIVEN PER REQUEST. DINNER AT BEDSIDE. PT DENIES FURTHER NEEDS AT THIS TIME. CALL LIGHT IN REACH.
--- NOTE | 2022-04-29 18:29 | NUR ---
PATIENT IN CHAIR WASHING HAIR WITH SHAMPOO CAP BY REQUEST. VITALS AND I/O'S COMPLETED WITHOUT THE BLOOD PRESSURE. THIS TAX DIRECTOR WILL RETURN TO GET IT. NO OTHER NEEDS AT THIS TIME, CALL LIGHT WITHIN REACH.
--- NOTE | 2022-04-29 19:45 | NUR ---
RECEIVED FROM DAY SHIFT RN. PATIENT IS UP IN RECLINER. NO NEEDS NOTED. CALL LIGHT IN REACH.
--- NOTE | 2022-04-29 21:25 | NUR ---
PATIENT ASSESMENT COMPELTED. VITALS TAKEN AND RECORDED. PATIENTS INTAKE AND OUTPUT RECORDED. PATIENTS PM MEDS GIVEN PER ORDER. PATIENT DENIES ANY PAIN. PATIENT IS ON RA. PATIENT PROVIDED FRESH ICE WATER. PATIENT IS AAOX4. NO FURTHER NEEDS NOTED. CALL LIGHT IN REACH.
--- NOTE | 2022-04-29 22:20 | NUR ---
PATIENTS IV INFILTRATED. WARM PACK APPLIED. NEW IV STARTED. PRN MELATONIN GIVEN PER ORDER. PATIENT PROVIDED FRESH ICE WATER. NO FURTHER NEEDS NOTED. CALL LIGHT IN REACH.
--- NOTE | 2022-04-30 01:06 | NUR ---
PATIENT IS RESTING IN BED WITH EYES CLOSED, RR 16. CALL LIGHT IN REACH.
--- NOTE | 2022-04-30 03:11 | NUR ---
PATIENT IS RESTING IN BED WITH EYES CLOSED, RR 16. CALL LIGHT IN REACH.
--- NOTE | 2022-04-30 04:29 | NUR ---
ASSESMENT COMPLETED. PATIENT UP TO BR AND WAS ABLE TO VOID. PATIENT IS BACK IN BED RESTING. PATIENTS IV ABX INFUSING PER ORDER. PATIENTS VITALS TAKEN AND RECORDED. INTKAE AND OUTPUT RECORDED. PATIENT DENIES ANY NEEDS. CALL LIGHT IN REACH. PATIENT IS AAOX4.
--- NOTE | 2022-04-30 05:42 | NUR ---
PATIENTS ABX COMPLETED AND Pt IS NOW SL PER ORDER. LAB PRESENT IN THE ROOM. NO FURTHER NEEDS NOTED. CALL LIGHT IN REACH. FRESH ICE WATER PROVIDED.
--- NOTE | 2022-04-30 08:21 | NUR ---
MORNING ASSESSMENT COMPLETE. PT STATES SHE SLEPT WELL THROUGH THE NIGHT. DENIES PAIN OR ANXIETY AT THIS TIME. BREAKFAST DELIVERED. CALL LIGHT IN REACH.
--- NOTE | 2022-04-30 08:36 | NUR ---
PATIENT ALREADY UP IN BED EATING. HAS NO OTHER NEEDS AT THIS TIME CALL LIGHT WITHIN REACH.
--- NOTE | 2022-04-30 10:02 | NUR ---
PATIENT LYING BED AFTER MEAL, VITALS AND I/O'S COMPLETED. NO OTHER NEEDS AT THIS TIME. CALL LIGHT WITHIN REACH.
--- NOTE | 2022-04-30 10:22 | NUR ---
PT RESTING IN BED WITH EYES CLOSED, RESPIRATIONS EVEN AND UNLABORED. CALL LIGHT IN REACH.
--- NOTE | 2022-04-30 11:42 | NUR ---
PT SITTING UP ON EDGE OF BED VISITING. DENIES NEEDS AT THIS TIME. CALL LIGHT IN REACH.
--- NOTE | 2022-04-30 13:05 | NUR ---
PT UP AMBULATING IN ROOM. DENIES NEEDS AT THIS TIME. CALL LIGHT IN REACH.
--- NOTE | 2022-04-30 13:38 | NUR ---
PATIENT SITTING UP IN CHAIR. VITALS AND I/O'S COMPLETED. NO OTHER NEEDS AT THIS TIME. CALL LIGHT WITHIN REACH.
--- NOTE | 2022-04-30 14:08 | NUR ---
PT RESTING AWAKE IN BED, DENIES PAIN OR NEEDS AT THIS TIME. CALL LIGHT IN REACH.
--- NOTE | 2022-05-01 12:51 | EKG ---
[facility] [address] [place], [place] [address] Signed EKG completed, results pending confirmation PATIENT NAME: ELISSA BUCKLEYOMI CHLOÉ Electrocardiogram DATE OF : 79 PHYSICIAN: LESTER OVALLES MD REPORT #: [id number] REPORT IS CONFIDENTIAL AND NOT TO BE RELEASED WITHOUT AUTHORIZATION
== END 2022-04-30 15:55 | disposition home or self-care (01) | DRG 75 ==
LOC: ED 11:35 → MS 11:37
PROVIDERS: ADMIT Family Medicine; ATTEND Family Medicine
PROC: 009U3ZX Drainage of Spinal Canal, Percutaneous Approach, Diagnostic (ICD-10-PCS; principal; 2022-04-23)
DX: A87.9 Viral meningitis, unspecified (principal); G93.41 Metabolic encephalopathy; E87.2 Acidosis; N17.9 Acute kidney failure, unspecified; R73.9 Hyperglycemia, unspecified; M54.2 Cervicalgia; I10 Essential (primary) hypertension; F41.9 Anxiety disorder, unspecified; F32.A Depression, unspecified; F10.10 Alcohol abuse, uncomplicated; N92.0 Excessive and frequent menstruation with regular cycle; R91.1 Solitary pulmonary nodule; G43.909 Migraine, unspecified, not intractable, without status migrainosus; Z98.51 Tubal ligation status; Z98.890 Other specified postprocedural states; Z88.8 Allergy status to other drugs, medicaments and biological substances; Z79.899 Other long term (current) drug therapy; Z79.02 Long term (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 of antithrombotics/antiplatelets; Z79.811 Long term (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 of aromatase inhibitors; Z90.49 Acquired absence of other specified parts of digestive tract; Z20.822 Contact with and (suspected) exposure to COVID-19; W18.30XA Fall on same level, unspecified, initial encounter
CPT/HCPCS: 36415; 70450; 70496; 71045; 74177; 80048; 80053; 80202; 81001; 82945; 82947; 83036; 83605; 83690; 83735; 84100; 84157; 84484; 84703; 85025; 85610; 87502; 89051; 93005; 93010; 93306; 96366; 96368; 99285-25; A9270; C9113; C9803; G0480; J0133; J0360; J0696; J1885; J2405; J2550; J2765; J3360; J3370; J3475; J7030; J7060; Q9967; U0003

== ENCOUNTER 2022-05-10 06:08 | Day surgery (SDC) | payer BC ==
[~2022-05-10] VITALS: Ht 154.9 cm; Wt 75.0 kg
--- NOTE | ~2022-05-10 | OR ---
[facility] [address] [place], [place] [address] Draft DATE OF OPERATION: 05/10/2022 SURGEON: Cassandra Schrader MD CLASSIFYING MACHINE OPERATOR: Lopez Green M.D. PREOPERATIVE DIAGNOSES: 1. Dysmenorrhea. 2. Menorrhagia. POSTOPERATIVE DIAGNOSES: 1. Dysmenorrhea. 2. Menorrhagia. 3. Severe endometriosis. 4. Pelvic adhesions. PROCEDURES: 1. Total laparoscopic hysterectomy with bilateral salpingectomy. 2. Lysis of adhesions. 3. Cystoscopy. ANESTHESIA: General ET. ESTIMATED BLOOD LOSS: 25 mL. DRAINS: Campbell catheter. INDICATIONS AND FINDINGS: The patient is a 47-year-old female, who has been having worsening dysmenorrhea and menorrhagia over the last six months. control pills made her periods more regular, but did not improve her pain. Ultrasound had been done, which was possibly consistent with adenomyosis. Endometrial biopsy revealed proliferative endometrium with a small focus of simple hyperplasia. She was consented for her options and she wished to undergo hysterectomy. At the time of surgery, exam under anesthesia was normal. At the time of laparoscopy, however, there were adhesions of the sigmoid into the posterior cul-de-sac. Both of the ovaries were adherent into the posterior ovarian fossa with the PATIENT NAME: JAQUELIN BUCKLEY CHLOÉ OPERATIVE REPORT DATE OF : 79 REPORT #: [id number] PHYSICIAN: CASSANDRA SCHRADER MD PCP: SUSANNA GUO PAC REPORT IS CONFIDENTIAL AND NOT TO BE RELEASED WITHOUT AUTHORIZATION [facility] [address] [place], [place] [address] Draft right one also adherent to the uterus. DESCRIPTION OF PROCEDURE: The patient was prepped and draped in the dorsal lithotomy position. A weighted speculum was placed. The anterior lip of the cervix was visualized and grasped with a single-tooth tenaculum. Uterus sounded to 11 cm. The endocervical canal was then dilated and the VCare was then placed with the balloon inflated at the fundus. The tenaculum and speculum removed. The cup was fitted over the cervix and a locking cap fitted into place. Attention was then directed above. The infraumbilical area was injected with 0.5% Marcaine plain. An incision was made with a knife. Each layer was serially elevated and incised until the fascia was opened and identified and stay sutures of #0 Vicryl were placed. The peritoneum was opened bluntly. The Avendano was then placed and tied into place with the balloon inflated. Placement of the scope confirmed proper positioning. CO2 was then introduced into the abdomen. Secondary ports were then placed. These were placed laterally and slightly below the level of the umbilicus. Each of these areas was transilluminated, injected with the Marcaine. Incision was made with a knife and the trocars placed under direct vision. The left-sided port was a 5 mm port. The right was a Veress needle, followed by the expanding port. The pelvis was evaluated. It was felt that the planned procedure was appropriate, it would be difficult because of the pelvic adhesions. The LigaSure [place] device was then used to serially coagulate the utero-ovarian pedicle and the round ligament on the patient's left. The anterior peritoneum could be taken down way to allow for development of a partial bladder flap. The peritoneum was taken down a little bit posteriorly as well. The uterine vessels were identified and were coagulated multiple times and divided. Attention was directed to the patient's right side and the same procedure was done. The utero-ovarian pedicle and round ligament were serially coagulated and divided. The anterior leaf of the peritoneum was incised allowing for completion of the bladder flap. The peritoneum was taken down posteriorly as well. Because of the adhesions, it was felt that an intrafascial dissection would be done to avoid taking down the sigmoid posteriorly. Following this, the uterine vessels on the patient's right side were serially coagulated and divided. Further dissection was done around the cup that I could be palpated at this point. Following this, the PuzzleSocial device was used to serially separate the specimen from the vaginal cuff. This was again posteriorly and wrapped around on the patient's right and anteriorly and again on the patient's posterior and wrapped around on the right. The specimen was retrieved intact vaginally. The vaginal canal was packed with a glove with a wet lap. Attention was directed above and the cuff irrigated. There was some bleeding near the patient's left uterine vessels and this was coagulated using not only the Maryland device . At this point, the tubes were then removed. These were serially coagulated along the mesosalpinx and and retrieved through the patient's expanding port. There was evidence of prior tubal ligation with Falope rings. Following this, the pelvis was again irrigated and inspected and bleeding was noted to PATIENT NAME: JAQUELIN BUCKLEY CHLOÉ OPERATIVE REPORT DATE OF : 79 REPORT #: [id number] PHYSICIAN: CASSANDRA SCHRADER MD PCP: SUSANNA GUO PAC REPORT IS CONFIDENTIAL AND NOT TO BE RELEASED WITHOUT AUTHORIZATION [facility] [address] [place], [place] [address] Draft be controlled. The cuff itself was then closed with the Endo stitch beginning at the patient's right uterosacral ligament, taking care to incorporate the vaginal mucosa both posteriorly and anteriorly and run to the patient's left uterosacral ligament back to the center. Because of the extent of the dissection with her adhesions, the decision was made to use Tisseel, and this was sprayed over the cuff and pelvic sidewalls to aid further in hemostasis. The instruments were then removed from the abdomen after allowing as much CO2 as possible to escape. The fascial incision of the umbilicus was grasped with hemostats, was closed with a running suture of 0-Vicryl. The stay sutures were tied across as well. The skin incisions were closed with subcuticular sutures of 3-0 Vicryl Rapide. Attention was directed down below. The instruments were removed from the vagina. The Campbell catheter was removed and cystoscopy was done using the 30-degree scope. She had received IV fluorescein. The patient's right ureter was immediately identified and seen to be escorting clear urine. The left ureter was quite difficult to visualize and this required a switch to the 70-degree scope. Following this, the patient's left ureter could be identified and with free flow of urine was noted. There was no other evidence of any damage to the bladder and the procedure was ended. The bladder was drained. The Campbell catheter replaced. All sponge and needle counts were correct. She tolerated the procedure well and was taken to the recovery room in good condition. MD JANA Davis/FRANCISCO /[id number] cc: Lopez Green MD [facility] Copies: LOPEZ GREEN MD [facility] ~ PATIENT NAME: JAQUELIN BUCKLEY CHLOÉ OPERATIVE REPORT DATE OF : 79 REPORT #: [id number] PHYSICIAN: CASSANDRA SCHRADER MD PCP: SUSANNA GUO PAC REPORT IS CONFIDENTIAL AND NOT TO BE RELEASED WITHOUT AUTHORIZATION
[~2022-05-10 06:08] MED LIST changes: +ATORVASTATIN CA20 MG PO; +CELECOXIB200 MG PO; +IBUPROFEN800 MG PO; +LISINOPRIL10 MG PO; +VENTOLIN HFA18 GM INH; +VOLTAREN ARTHRI20 GM TOP
--- NOTE | 2022-05-10 08:49 | NUR ---
PT BEING TAKEN TO OR, GUNJAN EVER VIGILANT, HAVING DIFFICULT TIME PT LEAVES. GAVE ENCOURAGEMENT, HE THANKED ME. SAID HE NEEDS TO GO HOME AND WILL RETURN VERY SHORTLY. WILL FOLLOW
--- NOTE | 2022-05-10 09:23 | NUR ---
05/10/22 0930 Melissa Bragg 0920 PATIENT ARRIVES TO PACU UNRESPONSIVE TO PAIN. ORAL AIRWAY IN PLACE. RESP EVEN AND UNLABORED, MASK AT 6 LITERS.
--- NOTE | 2022-05-10 10:40 | NUR ---
1020: PT ARRIVES TO UNIT VIA STRETCHER FROM PACU, AWAKE AND ORIENTED ON ARRIVAL. HOLDS APPROPRIATE CONVERSATION. VSS, RESP EVEN AND UNLABORED. DENIES NAUSEA AND REPORTS ROBERTA PAIN LEVEL, 4/10. REPORTS HUNGER, PROVIDED JELLO AND ICE WATER. ENCGD TO EAT SLOWLY, PT VOICES UNDERSTANDING. LAP SITES X3 WITH SMALL AMOUNT OF RED SHADOWING. SCDS IN PLACE. POC DISCUSSED AND PT AGREEABLE. SO AT THE BEDSIDE, NO NEEDS VOICED. CALL LIGHT WITHIN REACH
[2022-05-10] MEDS ORDERED: IBU800 MG PO (10:50)
[2022-05-10] MEDS ORDERED: ONDANSETRON ODT8 MG PO (10:51)
[2022-05-10] MEDS ORDERED: PERCOCET 5-3251 EACH PO (10:51)
--- NOTE | 2022-05-10 11:07 | NUR ---
1055: PT WITH CALL FOR THIS RN, REPORTS URGE TO VOID. DANGLES AT THE BEDSIDE, ROBERTA WELL. DENIES DIZZINESS AND SOB. IV CONVERTED TO SL AND SCDS REMOVED. PT AMBULATES TO BR WITH STANDBY FROM THIS RN, STEADY GAIT. SUCCESSFUL FIRST POSTOP VOID, 650MLS. BACK TO ROOM 3, PERIPAD IN PLACE. MINIMAL RED DRAINAGE. VSS, RESP EVEN AND UNLABORED. CONTS TO DENY NAUSEA AND REPORT ROBERTA PAIN LEVEL, 4/10. NO CHANGE TO LAP SITES X3. REG LUNCH TRAY ORDERED. NO FURTHER NEEDS VOICED, CALL LIGHT WITHIN REACH
--- NOTE | 2022-05-10 11:26 | NUR ---
1126: REG LUNCH TRAY ARRIVES AT THE BEDSIDE
--- NOTE | 2022-05-10 12:10 | NUR ---
1155: PT COMPLETES REG LUNCH, ROBERTA WELL. DRESSES SELF INDEPENDENTLY FOR D/C. SL REMOVED WITH CATH TIP INTACT AND PRESSURE APPLIED TO SITE. DC INSTRUCTIONS PROVIDED AND DISCUSSED. PT VOICES UNDERSTANDING AND DENIES QUESTIONS AND CONCERNS AT THIS TIME 1200: WHEELED OFF OF UNIT IN WC BY THIS RN. TRANSFERS INTO VEHICLE INDEPENDENTLY AND APPROPRIATELY. NO PHYSICAL S/S OF DISTRESS AT THIS TIME
--- NOTE | 2022-05-12 12:58 | PATH ---
[facility] [address], [place] [address] Signed SPECIMEN(S): A UTERUS, CERVIX, BILAT FALLOPIAN TUBES SPECIMEN SOURCE: A. UTERUS, CERVIX, BILAT FALLOPIAN TUBES CLINICAL HISTORY: Adenomyosis of uterine; dysmenorrhea. FINAL PATHOLOGIC DIAGNOSIS: Uterus, cervix, bilateral fallopian tubes: - Proliferative endometrium, negative for hyperplasia or atypia. - Endometrial adenomyosis (inner one-half of myometrium). - Benign endocervix and ectocervix. - Benign bilateral oviducts. - Incidental benign paratubal serous cysts. JVR:[id number]:[id number] MICROSCOPIC EXAMINATION: Histologic sections of all submitted blocks are examined by light microscopy. These findings, together with the gross examination, support the pathologic diagnosis. GROSS DESCRIPTION: The specimen, labeled "NL, uterus, cervix, bilateral fallopian tubes," is received in formalin and consists of 128 g uterus (9.5 x 6.5 x 4.2 cm) and cervix (3.3 x 3 cm) with a circular os (1 cm in diameter). The serosa is toribio-pink to toribio-red, smooth, glistening, and the ectocervix is pink-white, smooth, glistening. The specimen is opened to show a patent endocervical canal and a 3.5 x 2 cm toribio-pink and hemorrhagic endometrial cavity with a thickness of up to 0.2 cm. The myometrium is toribio-pink and coarsely trabeculated with a thickness of up to 2.5 cm. No discrete endometrial or myometrial lesions are identified. Also in the container are two unoriented toribio-pink to toriibo-red fallopian tubes with fimbriated ends. Fallopian tube #1 measures 4 cm length by 0.6 cm in diameter, and fallopian tube are two measures 4.5 cm in length by 0.5 cm in diameter). Sectioning shows toribio-pink to toribio-white cut surfaces with a stellate lumen. No discrete lesions are identified. Music Engineer sections are submitted. Cassette summary PATIENT NAME: JAQUELIN BUCKLEY CHLOÉ PATHOLOGY DATE OF : 79 REPORT #: [id number] PHYSICIAN: ATUL TORRES PCP: SUSANNA GUO PAC REPORT IS CONFIDENTIAL AND NOT TO BE RELEASED WITHOUT AUTHORIZATION [facility] [address], [place] [address] Signed A1 Anterior and posterior cervix A2 Anterior and posterior uterine wall A3 Fallopian tube 1 fimbriated end (bisected) and cross-section A4 Fallopian tube #2 fimbriated end (bisected) and cross-sections AR (under the direct supervision of a pathologist) The Gross Description was prepared using a voice recognition system. The report was reviewed for accuracy; however, sound-alike word errors, addition and/or deletions may occur. If there is any question about this report, please contact Client Services. PERFORMING LABORATORY: The technical component was performed by [facility], [address] [place] [id number] (CLIA# [id number]). Professional interpretation was performed by [facility] - [facility], [address] [place] [id number] (CLIA#: [id number]). Diagnostician: Jaya Pratt MD Pathologist Electronically Signed 05/12/2022 Copies: ~ PATIENT NAME: JAQUELIN BUCKLEY CHLOÉ PATHOLOGY DATE OF : 79 REPORT #: [id number] PHYSICIAN: ATUL TORRES PCP: SUSANNA GUO PAC REPORT IS CONFIDENTIAL AND NOT TO BE RELEASED WITHOUT AUTHORIZATION
== END 2022-05-10 12:00 | disposition home or self-care (01) ==
LOC: DS 06:08
PROVIDERS: ATTEND Obstetrics & Gynecology
PROC: 0UT94ZZ Resection of Uterus, Percutaneous Endoscopic Approach (ICD-10-PCS; principal; 2022-05-10 07:30)
PROC: 0UT74ZZ Resection of Bilateral Fallopian Tubes, Percutaneous Endoscopic Approach (ICD-10-PCS; 2022-05-10 07:30)
DX: N80.0 Endometriosis of uterus (principal); N80.3 Endometriosis of pelvic peritoneum; N92.0 Excessive and frequent menstruation with regular cycle; N94.5 Secondary dysmenorrhea; N83.8 Other noninflammatory disorders of ovary, fallopian tube and broad ligament; E66.09 Other obesity due to excess calories; Z68.31 Body mass index [BMI] 31.0-31.9, adult; Z98.51 Tubal ligation status; Z88.1 Allergy status to other antibiotic agents
CPT/HCPCS: 00840; 84703; J0131; J0690; J1100; J1644; J1885; J2001; J2250; J2300; J2405; J2704; J2765; J3010; J7121

== ENCOUNTER 2022-05-19 13:24 | Emergency (ER) | payer OTHER, BC ==
[~2022-05-19] VITALS: Ht 154.9 cm; Wt 76.4 kg
[~2022-05-19 13:24] MED LIST changes: +IBU800 MG PO; +PERCOCET 5-3251 EACH PO
--- OUTSIDE RECORDS SUMMARY | 2022-05-19 13:29 | XMS ---
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 No recent Security Events currently on file CRITERIA MET - [facility] - [facility] - 2 Visits in 30 Days CARE PROVIDERS SUSANNA GUO Cognos Bi Administrator Current PHONE: Unknown LANDON SEAY Internal Medicine Current PHONE: [phone] Jeniffer Munson Nurse 02/13/2022-Current PHONE: [phone] HOLLY DE LA GARZA [facility] 05/22/2018-Current PHONE: [phone] LELAND SHERMAN Internal Medicine: Pulmonary Disease 07/02/2018-Current PHONE: Unknown ROSA YEUNG Nurse Practitioner 05/12/2019-Current PHONE: [phone] [facility] 09/27/2020-[facility] PHONE: [phone] Conrad has no Care Guidelines for this patient. Care History Medical/Surgical 09/27/2020 [facility] - PATIENT IS [facility] ELIGIBLE, PLEASE REFER PATIENT TO [facility] FOR NON EMERGENT MEDICAL NEEDS. [facility] CAN SEE PATIENTS SAME DAY FOR APTS IF PATIENT CALLS FIRST THING IN THE MORNING. E.D. VISIT COUNT (12 MO.) [address] [facility] TOTAL 7 NOTE: Visits indicate total known visits. ED/UCC VISIT TRACKING (12 MO.) 05/19/2022 13:26 [facility] [place] TYPE: Emergency COMPLAINT: - L ANKLE/WRIST/KNEE PAIN/INJURY 04/23/2022 11:36 [facility] [place] TYPE: Emergency COMPLAINT: - POSS OD 02/07/2022 15:[address] [place] [facility] [place] TYPE: Emergency COMPLAINT: - CHEST PAIN DIAGNOSES: - Other alf (current) drug therapy - Anxiety disorder, unspecified - Essential (primary) hypertension - Migraine, unspecified, not intractable, without status migrainosus - Allergy status to other drugs, medicaments and biological substances - Other chest pain 10/07/2021 19:15 [facility] [address] [facility] [place] TYPE: Emergency COMPLAINT: - POSS OVERDOSE 09/26/2021 11:03 [facility] [place] TYPE: Emergency COMPLAINT: - SHAKY, BLURRED VISION, VOMITING, RAPID HEART RATE DIAGNOSES: - Essential (primary) hypertension - Migraine, unspecified, not intractable, without status migrainosus - Allergy status to other drugs, medicaments and biological substances - Alcohol dependence with withdrawal, unspecified - Other oysterman (current) drug therapy 09/23/2021 12:54 [facility] [place] TYPE: Emergency COMPLAINT: - POSS DETOX DIAGNOSES: - Migraine, unspecified, not intractable, without status migrainosus - Alcohol dependence with withdrawal, unspecified - Exposure to other specified factors, initial encounter - Allergy status to other drugs, medicaments and biological substances - Essential (primary) hypertension - Other oysterman (current) drug therapy - Strain of muscle, fascia and tendon of lower back, initial encounter 06/11/2021 10:06 [facility] [place] TYPE: Emergency COMPLAINT: - COVID +, FLU SYMPTOMS DIAGNOSES: - Essential (primary) hypertension - Migraine, unspecified, not intractable, without status migrainosus - Other alf (current) drug therapy - Allergy status to other drugs, medicaments and biological substances - COVID-19 INPATIENT VISIT TRACKING (12 MO.) 04/25/2022 12:00 [facility] [place] TYPE: Medical Surgical COMPLAINT: - ALTERED MENTAL STATUS DIAGNOSES: - Cervicalgia - Metabolic encephalopathy - Migraine, unspecified, not intractable, without status migrainosus - Depression, unspecified - Alcohol abuse, uncomplicated - Acidosis - Excessive and frequent menstruation with regular cycle - Tubal ligation status - 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 inhibitors - Allergy status to other drugs, medicaments and biological substances - Alcohol abuse, uncomplicated - Solitary pulmonary nodule - Essential (primary) hypertension - Acquired absence of other specified parts of digestive tract - Cervicalgia - Essential (primary) hypertension - Acute kidney failure, unspecified - Fall on same level, unspecified, initial encounter - Excessive and frequent menstruation with regular cycle - Acquired absence of other specified parts of digestive tract - Other oysterman (current) drug therapy - Other specified postprocedural states - Anxiety disorder, unspecified - Viral meningitis, unspecified - Allergy status to other drugs, medicaments and biological substances - Contact with and (suspected) exposure to COVID-19 - Metabolic encephalopathy - Hyperglycemia, unspecified - Altered mental status, unspecified - 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 inhibitors - Other oysterman (current) drug therapy - Acidosis - Viral meningitis, unspecified - Depression, unspecified - Other specified postprocedural states - Tubal ligation status - Solitary pulmonary nodule - Contact with and (suspected) exposure to COVID-19 - 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 (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 of antithrombotics/antiplatelets - Migraine, unspecified, not intractable, without status migrainosus - Hyperglycemia, unspecified - Fall on same level, unspecified, initial encounter - 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 (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 of antithrombotics/antiplatelets - Anxiety disorder, unspecified - Acute kidney failure, unspecified 10/27/2021 16:44 [facility] [place] TYPE: Inpatient Rehab DIAGNOSES: - Major depressive disorder, recurrent, in partial remission - Suicide attempt, initial encounter - Acute respiratory failure with hypoxia - Other specified health status - Alcohol dependence, in remission - Other reduced mobility - Encephalopathy, unspecified - Critical illness myopathy - Other malaise - Stridor 10/17/2021 16:34 [facility] [place] TYPE: Medical Surgical COMPLAINT: - Respiratory failure / ETOH WD DIAGNOSES: - Respiratory failure / ETOH WD 10/08/2021 00:31 [facility] [place] TYPE: Critical Care COMPLAINT: - TOXIC ENCEPHALOPATHY RESPIRATORY FAILURE DIAGNOSES: - Anxiety disorder, unspecified - Unspecified mood [affective] disorder - Depression, unspecified - Alcohol dependence with withdrawal, unspecified - Anuria and oliguria - Anxiety disorder, unspecified - Poisoning by other drugs, medicaments and biological substances, accidental (unintentional), initial encounter - Other oysterman (current) drug therapy - Unspecified mood [affective] disorder - OTHER TOXIC ENCEPHALOPATHY - Acidosis - Migraine, unspecified, not intractable, without status migrainosus - Acquired absence of other specified parts of digestive tract - Other toxic encephalopathy - Blood alcohol [...] DEPRESSION, UNSPECIFIED - DEPRESSION, UNSPECIFIED - Other oysterman (current) drug therapy - Allergy status to other drugs, medicaments and biological substances - Essential (primary) hypertension - Anuria and oliguria - Acquired absence of other specified parts of digestive tract - Migraine, unspecified, not intractable, without status migrainosus - Contact with and (suspected) exposure to COVID-19 - Acute respiratory failure with hypoxia [email or web address]
== END 2022-05-19 19:20 | disposition home or self-care (01) ==
LOC: ED 13:24
DX: S93.402A Sprain of unspecified ligament of left ankle, initial encounter (principal); S63.502A Unspecified sprain of left wrist, initial encounter; X50.1XXA Overexertion from prolonged static or awkward postures, initial encounter; I10 Essential (primary) hypertension; G43.909 Migraine, unspecified, not intractable, without status migrainosus; Z88.8 Allergy status to other drugs, medicaments and biological substances; Z79.899 Other long term (current) drug therapy
CPT/HCPCS: 73090; 73110; 73610; 99283-25; A9270

== ENCOUNTER 2023-01-25 09:52 | Emergency (ER) | payer BC ==
[~2023-01-25] VITALS: Ht 154.9 cm; Wt 76.4 kg
[2023-01-25] MEDS ORDERED: BUSPIRONE HCL10 MG PO (10:18)
[2023-01-25] MEDS ORDERED: LOTEPREDNOL ETA10 ML OP (10:19)
[2023-01-25] MEDS ORDERED: CLONIDINE HCL0.1 MG PO (10:19)
[2023-01-25] MEDS ORDERED: PRAZOSIN HCL2 MG PO (10:19)
[2023-01-25] MEDS ORDERED: VITAMIN D350 MCG PO (10:19)
--- OUTSIDE RECORDS SUMMARY | 2023-01-25 10:25 | XMS ---
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 Events No recent Security Events currently on file CRITERIA MET - [employer]MP CARE PROVIDERS SUSANNA GUO Physician Flying Ii Instructor Current PHONE: Unknown LANDON SEAY Internal Medicine Current PHONE: [phone] Jeniffer Munson Nurse 02/13/2022-Current PHONE: [phone] HOLLY DE [facility] G[facility] 05/22/2018-Current PHONE: [phone] LELAND SHERMAN Internal Medicine: Pulmonary Disease 07/02/2018-Current PHONE: Unknown ROSA YEUNG Nurse Practitioner 05/12/2019-Current PHONE: [phone] [facility] 09/27/2020-[facility] PHONE: [phone] Conrad has no Care Guidelines for this patient. Care History Medical/Surgical 09/27/2020 [facility] - PATIENT IS [facility] ELIGIBLE, PLEASE REFER PATIENT TO [facility] FOR NON EMERGENT MEDICAL NEEDS. [facility] CAN SEE PATIENTS SAME DAY FOR APTS IF PATIENT CALLS FIRST THING IN THE MORNING. E.D. VISIT COUNT (12 MO.) [address] [facility] TOTAL 4 NOTE: Visits indicate total known visits. ED/UCC VISIT TRACKING (12 MO.) 01/25/2023 09:53 [facility] [place] TYPE: Emergency COMPLAINT: - CHEST PAIN, LOWER BACK/NECK PAIN 05/19/2022 13:26 [facility] [place] TYPE: Emergency COMPLAINT: - L ANKLE/WRIST/KNEE PAIN/INJURY DIAGNOSES: - Allergy status to other drugs, medicaments and biological substances - Essential (primary) hypertension - Migraine, unspecified, not intractable, without status migrainosus - Other mcc (current) drug therapy - Overexertion from prolonged static or awkward postures, initial encounter - Pain in left wrist - Sprain of unspecified ligament of left ankle, initial encounter - Unspecified sprain of left wrist, initial encounter 04/23/2022 11:[address] [facility] [place] TYPE: Emergency COMPLAINT: - POSS OD 02/07/2022 15:[address] [facility] [place] TYPE: Emergency COMPLAINT: - CHEST PAIN DIAGNOSES: - Allergy status to other drugs, medicaments and biological substances - Anxiety disorder, unspecified - Essential (primary) hypertension - Migraine, unspecified, not intractable, without status migrainosus - Other chest pain - Other mcc (current) drug therapy INPATIENT VISIT TRACKING (12 MO.) 04/25/2022 12:[address] [facility] [place] TYPE: Medical Surgical COMPLAINT: - ALTERED MENTAL STATUS DIAGNOSES: - Acidosis - Acidosis - Acquired absence of other specified parts of digestive tract - Acquired absence of other specified parts of digestive tract - Acute kidney failure, unspecified - Acute kidney failure, unspecified - Alcohol abuse, uncomplicated - Alcohol abuse, uncomplicated - Allergy status to other drugs, medicaments and biological substances - Allergy status to other drugs, medicaments and biological substances - Altered mental status, unspecified - Anxiety disorder, unspecified - Anxiety disorder, unspecified - Cervicalgia - Cervicalgia - Contact with and (suspected) exposure to COVID-19 - Contact with and (suspected) exposure to COVID-19 - Depression, unspecified - Depression, unspecified - Essential (primary) hypertension - Essential (primary) hypertension - Excessive and frequent menstruation with regular cycle - Excessive and frequent menstruation with regular cycle - Fall on same level, unspecified, initial encounter - Fall on same level, unspecified, initial encounter - Hyperglycemia, unspecified - Hyperglycemia, unspecified - MCC (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 of antithrombotics/antiplatelets - MCC (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 of antithrombotics/antiplatelets - MCC (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 of aromatase inhibitors - MCC (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 of aromatase inhibitors - Metabolic encephalopathy - Metabolic encephalopathy - Migraine, unspecified, not intractable, without status migrainosus - Migraine, unspecified, not intractable, without status migrainosus - 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
[2023-01-25] MEDS ORDERED: ZITHROMAX250 MG PO (11:34)
[2023-01-25] MEDS ORDERED: HYDROCODON-ACE1 EA10 PO (11:34)
[2023-01-25] MEDS ORDERED: AMOX TR-K CLV1 EAC1 PO (11:34)
[2023-01-25 13:05] VITALS: BP 128/79
--- NOTE | 2023-01-25 21:20 | EKG ---
[facility] [address] [facility] [place] [address] Signed Normal sinus rhythm Nonspecific T wave abnormality Abnormal ECG When compared with ECG of 25-APR-2022 14:58, Nonspecific T wave abnormality has replaced inverted T waves in Anterior leads Confirmed by MOOKIE CARPENTER MD ([id number]) on 01/25/2023 9:20:17 PM Electronically Signed By: MOOKIE CARPENTER MD 01/25/232119 PATIENT NAME: JAQUELIN BUCKLEY CHLOÉ Electrocardiogram DATE OF : 79 PHYSICIAN: MOOKIE CARPENTER MD REPORT #: [id number] REPORT IS CONFIDENTIAL AND NOT TO BE RELEASED WITHOUT AUTHORIZATION
== END 2023-01-25 13:05 | disposition home or self-care (01) ==
LOC: ED 09:52
DX: J18.9 Pneumonia, unspecified organism (principal); I10 Essential (primary) hypertension; G43.909 Migraine, unspecified, not intractable, without status migrainosus; Z79.899 Other long term (current) drug therapy
CPT/HCPCS: 36415; 71045; 80053; 84484; 85025; 93005; 93010; 96374; 96375; 99285-25; J0696; J1885; J2405

== ENCOUNTER 2023-08-15 12:34 | Inpatient (IN) | payer BC ==
[~2023-08-15] VITALS: Ht 154.9 cm; Wt 82.6 kg
[~2023-08-15 12:34] MED LIST changes: +BUSPIRONE HCL10 MG PO; +CLONIDINE HCL0.1 MG PO; -LIDOCAINE1 EACH TD; +LOTEPREDNOL ETA10 ML OP; +PRAZOSIN HCL2 MG PO; +VITAMIN D350 MCG PO
[2023-08-15 13:15] LABS: HEMATOCRIT 25.3 % (35.0-50.0); HEMOGLOBIN 8.2 g/dL (12.0-18.0); MCH 28.3 (27-36); MCHC 32.6 g/dl (30-36); MCV 86.8 fl (81-99); PLATELET COUNT 369 K/uL (140-440); RBC 2.91 M/ul (4.3-5.7)
[2023-08-15 13:22] LABS: ALBUMIN 3.2 g/dL (3.4-5.0); ALBUMIN/GLOBULIN RATIO 0.8 (1.1-2.4); ANION GAP 15.4 (7-21); BILIRUBIN, TOTAL 0.4 ng/dL (0.2-1.0); BUN/CREATININE RATIO 19.04 (6.0-28.6); CREATININE, SERUM 1.47 mg/dL (0.55-1.02); POTASSIUM 4.4 mmol/L (3.5-5.1); PROTEIN, TOTAL 7.2 g/dL (6.4-8.2)
[2023-08-15 13:22] LABS: BILIRUBIN, URINE NEGATIVE (negative); BLOOD/HGB, URINE MODERATE (Negative); KETONE, URINE TRACE (Negative); LEUK ESTERASE, URINE NEGATIVE (negative); NITRITE, URINE NEGATIVE (negative)
[2023-08-15 13:25] LABS: LACTIC ACID, BLOOD 0.5 mmol/L (0.4-2.0)
[2023-08-15 13:29] LABS: BACTERIA, URINE RARE /hpf (negative); CASTS, URINE NONE SEEN \\lpf; COLLECTION TYPE, URINE CLEAN CATCH; CRYSTALS, URINE NONE SEEN (0-1+); EPITHELIAL CELLS, URINE 0 /lpf (0-1+); RED BLOOD CELLS, URINE 0-1 /hpf (0-5); REFLEX CULTURE, URINE No (No)
[2023-08-15 13:31] LABS: INFLUENZA B NAA NEGATIVE (NEGATIVE); RESPIRATORY SYNCYTIAL VIR NAA NEGATIVE (NEGATIVE)
[2023-08-15 13:41] LABS: EOSINOPHILS, MANUAL DIFF 0; LYMPHOCYTES, MANUAL DIFF 10; MONOCYTES, MANUAL DIFF 1; NEUTROPHILS, MANUAL DIFF 89
[2023-08-15 13:42] LABS: BASOPHILS, MANUAL DIFF 0
--- NOTE | 2023-08-15 15:57 | NUR ---
PT ARRIVES TO UNIT ON STRETCHER FROM ED. PT AMBULATES VIA SBA D/T WEAKNESS. REPORT RECEIVED FROM RAJINDER CAMEJO. PT REPORTS LEFT FOREARM IV WAS "ACCIDENTALLY PULLED OUT IN THE ER". 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 PT REPORTS A HEADACHE WITH PAIN 7-8/10 "AND CREEPING UP", DR CHRISTIAN UPDATED, NEW ORDERS ENTERED, REPEAT BACK PERFORMED. PT A+O X3, GENERALIZED WEAKNESS PRESENT LIKELY D/T PNEUMONIA PT SAYS THIS IS NOT HER BASELINE. PT DENIES ANY NUMBNESS/TINGLING, NO EDEMA PRESENT. LUNG SOUNDS CLEAR IN ALL LOBES BUT FOR CRACKLES IN LEFT UPPER LOBE UPON AUSCULTATION. PT STATES COUGH "WENT AWAY SOMEHOW AFTER STARTING ON THE OXYGEN THIS AFTERNOON". ABDOMEN MILDY DISTENDED, SOFT, TENDER TO PALPATION. PT HAS MILD NAUSEA UPON ARRIVAL, REQUESTS "7UP" TO SIP, STATES THIS "HELPS". LAST BM 08/14/23. PT STATES SHE HAS "STRESS INCONTINENCE" AT TIMES AND THAT SHE BROUGHT HER OWN PADS THAT SHE REGULARLY USES. SKIN PINK, WARM, C/D/I. PATIENT HAS SCAR ON LEFT WRIST FROM "FISHING ACCIDENT" WHEN SHE WAS A CHILD, SCAR ON LEFT FOREARM THAT PT DOES NOT RECALL GETTING, SCARS ON ABDOMEN FROM PREVIOUS "CHOLECTOMY". PT WEANED FROM 2L O2 VIA NC TO 1L, O2 SATURATION REMAINS >94% PER CPOX, WEANED TO RA AND O2 DECREASED TO 90%, PLACED BACK ON 1L O2 VIA NC AND BACK UP TO >94% PER CPOX. CPOX IN PLACE D/T OXYGENATION STATUS UPON ARRIVAL. PT STATES NO FURTHER NEEDS AT THIS TIME, CALL LIGHT EDUCATION PROVIDED, PT VERBALIZES UNDERSTANDING, CALL LIGHT WITHIN REACH, BED RAILS UP.
[2023-08-15 16:06] VITALS: BP 96/58
[2023-08-15] MEDS ORDERED: FENOFIBRATE160 MG PO (16:59)
[2023-08-15] MEDS ORDERED: ONDANSETRON ODT8 MG SL (17:01)
[2023-08-15] MEDS ORDERED: ATORVASTATIN CA80 MG PO (17:03)
[2023-08-15] MEDS ORDERED: GUANFACINE HCL1 MG PO (17:03)
[2023-08-15] MEDS ORDERED: DICLOFENAC SODI50 GM (17:03)
[2023-08-15] MEDS ORDERED: METOPROLOL TART50 MG PO (17:04)
[2023-08-15] MEDS ORDERED: BUSPIRONE HCL15 MG PO (17:06)
--- NOTE | 2023-08-15 17:08 | NUR ---
PT SITTING UP IN BED EATING DINNER, REQUESTS PAIN MEDICATION FOR 8/10 PAIN, GIVEN. PT STATES NO FURTHER NEEDS AT THIS TIME, CALL LIGHT WITHIN REACH, BED RAILS UP.
[2023-08-15] MEDS ORDERED: LIDOCAINE1 EACH TD (17:21)
--- NOTE | 2023-08-15 18:29 | NUR ---
PT RESTING WITH EYES CLOSED WHEN THIS RN ENTERS ROOM. PT FEET OFF OF BED, PT AWAKENS TO TOUCH AND VOICE, REPOSITIONED IN BED. PT DENIES PAIN AT THIS TIME. NC HAD COME OFF OF PT IN SLEEP, O2 SATURATION >93% ON RA, NC REMOVED FROM BED. PT DENIES SOB, DIZZINESS, OR NAUSEA AT THIS TIME. PT STATES NO FURTHER NEEDS, CALL LIGHT WITHIN REACH, BED RAILS UP.
--- NOTE | 2023-08-15 19:05 | NUR ---
REPORT RECIEVED FROM ONEIDA CALVILLO AND PAM CALVILLO. PATIENT RESTING IN BED. FAMILY IN RM. CALL LIGHT IN REACH. IV WNL.
[2023-08-15 19:06] VITALS: BP 98/55
--- NOTE | 2023-08-15 20:15 | NUR ---
call light answered, iv pump alarming and shows distal occlusion. iv site wnl, flushed with 10mls normal saline. iv fluids resumed as directed, call light in reach. family in room.
[2023-08-15 20:25] VITALS: BP 116/73
--- NOTE | 2023-08-15 20:26 | NUR ---
ASSESSMENT AND VITAL SIGNS DONE. SCHEDULED MEDICATIONS ADMINISTERED, SEE MAR. IV ASSESSED, WNL. IVF INFUSING PER ORDER, SEE MAR. pt C/O 10/13 PAIN. pt DENIES PAIN MEDICATION AT THIS TIME. CALL LIGHT WITHIN REACH. NO OTHER NEEDS AT THIS TIME.
--- NOTE | 2023-08-15 22:30 | NUR ---
PATIENT RESITNG IN BED WITH EYES CLOSED. RESP OBSERVED. RR EVEN AND UNLABORED. CALL LIGHT IN REACH.
--- NOTE | 2023-08-16 00:14 | NUR ---
pt RESTING IN BED WITH EYES CLOSED. HR 80. CALL LIGHT IN REACH.
--- NOTE | 2023-08-16 00:19 | NUR ---
pt ON 2LNC DUE TO DESATTING DURING SLEEP.
[2023-08-16 02:01] VITALS: BP 113/64
--- NOTE | 2023-08-16 02:10 | NUR ---
ASSESSMENT AND VITAL SIGNS DONE. pt UP TO THE BR, SBA. CALL LIGHT IN REACH. NO OTHER NEEDS AT THIS TIME. IV ASSESSED, WNL
--- NOTE | 2023-08-16 04:44 | NUR ---
PATIENT IN BED RESTING WITH EYES CLOSED. RESP OBSERVED. RR EVEN AND UNLABORED. CALL LIGHT IN REACH.
[2023-08-16 05:11] VITALS: BP 114/69
--- NOTE | 2023-08-16 05:49 | EKG ---
[facility] [address] [facility] [place], [place] [address] Signed Sinus tachycardia Cannot rule out Inferior infarct , age undetermined Abnormal ECG No previous ECGs available Confirmed by SHAUNA ROBBINS MD ([id number]) on 08/16/2023 5:48:46 AM Electronically Signed By: SHAUNA ROBBINS 08/16/23 0549 PATIENT NAME: JAQUELIN BUCKLEY CHLOÉ Electrocardiogram DATE OF : 79 PHYSICIAN: SHAUNA ROBBINS REPORT #: [id number] REPORT IS CONFIDENTIAL AND NOT TO BE RELEASED WITHOUT AUTHORIZATION
[2023-08-16 05:50] LABS: BASOPHILS 0.3 % (0-2); HEMATOCRIT 22.4 % (35.0-50.0); HEMOGLOBIN 7.5 g/dL (12.0-18.0); LYMPHOCYTES 15.3 % (24-44); MCHC 33.4 g/dl (30-36); MONOCYTES 7.3 % (0-12); NEUTROPHILS 73.1 % (39-80); PLATELET COUNT 321 K/uL (140-440); RBC 2.57 M/ul (4.3-5.7); RDW 13.3 (10.5-15.0)
[2023-08-16 06:05] LABS: ALBUMIN 2.6 g/dL (3.4-5.0); ALBUMIN/GLOBULIN RATIO 0.7 (1.1-2.4); ANION GAP 13.6 (7-21); BILIRUBIN, TOTAL 0.1 ng/dL (0.2-1.0); BUN/CREATININE RATIO 14.28 (6.0-28.6); CALCIUM 8.2 mg/dL (8.5-10.1); CREATININE, SERUM 0.91 mg/dL (0.55-1.02); POTASSIUM 4.6 mmol/L (3.5-5.1); PROTEIN, TOTAL 6.3 g/dL (6.4-8.2)
--- NOTE | 2023-08-16 09:49 | NUR ---
recieved report from nurse at 0730 pt was resting with eyes closed with o2 sats at 96%. pt is currently awkae in bed. recieved all medications and spoke with case management. no other cares needed at this time. call light within reach
[2023-08-16 10:15] VITALS: BP 133/74
--- NOTE | 2023-08-16 10:15 | NUR ---
PATIENT RESTING IN BED, RN AT BEDSIDE. VITALS AND I&OS CHARTED. PATIENT REFUSED BREAKFAST TRAY, PAM BROTH PROVIDED INSTEAD. FRESH ICE WATER PROVIDED
--- NOTE | 2023-08-16 10:50 | NUR ---
MS LOPEZ. PHARMACY IN ROOM. NO VISIT. PROVIDED PRAYER.
--- NOTE | 2023-08-16 11:00 | NUR ---
Spoke with Kay. She lives in a house with 3 steps. No issues getting in or out. She does not use any DME. She was admitted for pneumonia, no oxygen use. Pt has a hx of alcohol abuse, she has been sober for 2 years. She lives with her spouse and 3 children 27, 17, 16. They will assist her. She denies any needs and plans on dc to home when cleared medically by the hospitalist.
[2023-08-16] MEDS ORDERED: VITAMIN D350 MCG PO (11:05)
[2023-08-16] MEDS ORDERED: VITAMIN B-121000 MCG PO (11:06)
--- NOTE | 2023-08-16 11:06 | NUR ---
MED REC COMPLETE
--- NOTE | 2023-08-16 12:40 | NUR ---
PT IS CURRENTLY IN BED LAYING DOWN RESTING. PT IS REFUSING TO EAT ANY FOOD AT THIS TIME AND STATES THAT SHE IS TOO NAUSEOUS TO EAT. OFFERED MEDICATION PT REFUSED. NO OTHER CARES NEEDED OR REQUESTED AT THIS TIME CALL LIGHT WITHIN REACH
[2023-08-16 14:00] VITALS: BP 143/86
--- NOTE | 2023-08-16 15:08 | NUR ---
UR NOTE MCG PNEUMONIA (ISC) 08/15/23 MET CLINICAL INDICATIONS FOR ADMISSION TO INPATIENT CARE GL DAY 1 08/16/23 MET GL DAY 2
--- NOTE | 2023-08-16 15:49 | NUR ---
PT STATES THAT SHE IS STILL NAUSEOUS BUT REFUSES ANY MEDICATIONS TO HELP AT THIS TIME. WILL CONTINUE TO MONITOR AND ENCOURAGE. NO OTHER CARES AT THIS TIME CALL LIGHT WITHIN REACH
[2023-08-16 17:09] VITALS: BP 145/85
--- NOTE | 2023-08-16 17:20 | NUR ---
pt requested promethazine and states that zofran and compazine is not working for her. called dr simental and explained the situation and dr simental said that he will add the promethazine to pt emar.
--- NOTE | 2023-08-16 17:52 | NUR ---
PT STATES PAIN LEVEL AT 8 AND REQUESTED MOTRIN. MOTRIN GIVEN AND PROMETHAZINE ALSO GIVEN AT THIS TIME. PT TOLERATED WELL. PT ATE SOME FRUIT. NO OTTHER CARES NEEDED OR REQUESTED AT THIS TIMEM CALL LIGHT WITHIN REACH
--- NOTE | 2023-08-16 19:29 | NUR ---
REPORT RECIEVED FROM KARL CALVILLO. PATIENT RESTING IN BED. BOARD UPDATED. CALL LIGHT IN REACH. NO NEEDS AT THIS TIME.
[2023-08-16 22:01] VITALS: BP 147/85
--- NOTE | 2023-08-16 22:07 | NUR ---
ASSESSMENT AND VITAL SIGNS DONE. pt C/O 11/10 PAIN. PRN PAIN MEDICATION ADMINSTERED. NEW IVF BAG INFUSING, SEE MAR. SCHEDULED MEDIACATION ADMINISTERED, SEE MAR. pt UP TO BR, IND IN RM. CALL LIGHT IN REACH.
--- NOTE | 2023-08-16 23:35 | NUR ---
pt RESTING IN BED WITH EYES CLOSED. O2 SATURATION AT 95% ON RA. CALL LIGHT WITHIN REACH. NO OTHER NEEDS AT THIS TIME.
--- NOTE | 2023-08-17 01:46 | NUR ---
pt IN BED RESTING WITH EYES CLOSED. O2 SATURATION AT 95% ON RA. CALL LIGHT WITHIN REACH.
--- NOTE | 2023-08-17 03:55 | NUR ---
pt IN BED RESTING WITH EYES CLOSED. RESP OBSERVED. RR EVEN AND UNLABORED. CALL LIGHT WITH IN PLACE.
[2023-08-17 05:10] VITALS: BP 151/86
--- NOTE | 2023-08-17 05:30 | NUR ---
ASSESSMENT AND VITAL SIGNS DONE. pt UP TO BR, IND IN RM. pt C/O 04/12 PAIN. PRN PAIN MEDICATION ADMINISTERED, SEE NOV. pt BACK TO BED. CALL LIGHT WITHIN REACH. NO OTHER NEEDS AT THIS TIME.
[2023-08-17 05:31] LABS: BASOPHILS 0.2 % (0-2); HEMOGLOBIN 8.1 g/dL (12.0-18.0); LYMPHOCYTES 16.9 % (24-44); MCHC 33.9 g/dl (30-36); MCV 85.5 fl (81-99); MONOCYTES 5.7 % (0-12); NEUTROPHILS 75.2 % (39-80); PLATELET COUNT 378 K/uL (140-440); RDW 13.1 (10.5-15.0)
[2023-08-17 05:51] LABS: ALBUMIN 1.7 g/dL (3.4-5.0); ALBUMIN/GLOBULIN RATIO 0.33 (1.1-2.4); ANION GAP 13.9 (7-21); BILIRUBIN, TOTAL 0.2 ng/dL (0.2-1.0); BUN/CREATININE RATIO 5.12 (6.0-28.6); CALCIUM 8.6 mg/dL (8.5-10.1); CREATININE, SERUM 0.78 mg/dL (0.55-1.02); POTASSIUM 3.9 mmol/L (3.5-5.1); PROTEIN, TOTAL 6.8 g/dL (6.4-8.2)
--- NOTE | 2023-08-17 07:10 | NUR ---
REPORT RECEIVED FROM WORM SORTER RN KIMBER. PATIENT IS RESTING ON THEIR RIGHT SIDE IN BED. RESPIRATIONS ARE EVEN AND UNLABORED. PATIENT CALL LIGHT AND PERSONAL BELONGINGS ARE WITHIN REACH.
[2023-08-17 09:04] VITALS: BP 147/87
--- NOTE | 2023-08-17 10:35 | NUR ---
PATIENT FULL ASSESSMENT COMPLETE AND DOCUMENTED IN THE CHART. PATIENT 0900 MEDICATIONS ADMINISTERED PER THE EMAR. PATIENT EXPRESSED HAVING NAUSEA. PRN ZOFRAN ADMINISTERED PER THE EMAR WELL. PATIENT LUNG SOUNDS CLEAR BILATERALLY IN THE UPPER LUNG LOBES AND CLEAR AND DIMINISHED BILATERALALY IN THE LOWER LUNG LOBES. PATIENT UP TO THE BATHROOM AND HAD A BOWEL MOVEMENT. PATIENT BOWEL SOUNDS ACTIVE. PATIENT BREAKFAST TRAY REMOVED FROM THE ROOM. PATIENT REQUESTED TO ONLY KEEP THE BANANA TO EAT. PATIENT CAPILLARY REFILL LESS THAN 3 SECONDS IN THE UPPER AND LOWER EXTREMITITES BILATERALLY. RADIAL AND PEDAL PULSES ARE STRONG. SKIN INTACT. A FEW SCARS NOTED. PATIENT STATED PAIN OF 7/10 AND LAYING DOWN HELPED. PATIENT IS ALERT AND ORIENTED TIMES FOUR. PATIENT STATED NO FURTHER NEEDS AT THIS TIME. CALL LIGHT AND PERSONAL BELONGINGS ARE WITHIN REACH.
[2023-08-17] MEDS ORDERED: CEFPODOXIME PR200 MG PO (13:27)
== END 2023-08-17 14:28 | disposition home or self-care (01) | DRG 871 ==
LOC: ED 12:34 → MS 15:11
PROVIDERS: Emergency Medicine; ADMIT Family Medicine; ATTEND Family Medicine
DX: A41.9 Sepsis, unspecified organism (principal); J18.9 Pneumonia, unspecified organism; F41.9 Anxiety disorder, unspecified; F32.A Depression, unspecified; M51.9 Unspecified thoracic, thoracolumbar and lumbosacral intervertebral disc disorder; I10 Essential (primary) hypertension; E78.5 Hyperlipidemia, unspecified; G43.909 Migraine, unspecified, not intractable, without status migrainosus; D64.9 Anemia, unspecified; F10.11 Alcohol abuse, in remission; G89.29 Other chronic pain; F90.9 Attention-deficit hyperactivity disorder, unspecified type
CPT/HCPCS: 36415; 71045; 71260; 74177; 80053; 81001; 83605; 84703; 85025; 87040; 87502; 93005; 93010; A9270; C9803; J0456; J0696; J0780; J1650; J1885; J2405; J7060; J7121; U0002

== ENCOUNTER 2024-05-03 02:56 | Emergency (ER) | payer BC ==
[~2024-05-03] VITALS: Ht 152.4 cm; Wt 81.4 kg
[~2024-05-03 02:56] MED LIST changes: +ATORVASTATIN CA80 MG PO; +BUSPIRONE HCL15 MG PO; +CARAFATE1 GM PO; +CEFPODOXIME PR200 MG PO; +DICLOFENAC SODI50 GM; +GUANFACINE HCL1 MG PO; +LIDOCAINE1 EACH TD; +METOPROLOL TART50 MG PO; +ONDANSETRON ODT8 MG SL; +PROTONIX20 MG PO; +VITAMIN B-121000 MCG PO
[2024-05-03] MEDS ORDERED: MULTIVITAMINS 10 ML,FOLIC ACID 1 MG,THIAMINE HCL 100 MG in SODIUM CHLORIDE 0.9% 1,000 ML IV ONE (03:00)
[2024-05-03] MEDS ORDERED: KETOROLAC TROMETHAMINE 30 MG/ML VIAL IV ONE (03:00)
[2024-05-03] MEDS ORDERED: FOLIC ACID 1 MG/0.2 ML ML ONE (03:09)
[2024-05-03] MEDS ORDERED: LORazepam 2 MG/ML VIAL IV ONE (03:15)
[2024-05-03 03:33] LABS: BILIRUBIN, URINE NEGATIVE (negative); BLOOD/HGB, URINE NEGATIVE (Negative); KETONE, URINE NEGATIVE (Negative); LEUK ESTERASE, URINE NEGATIVE (negative); NITRITE, URINE NEGATIVE (negative)
[2024-05-03 03:46] LABS: AMPHETAMINES, URINE NEGATIVE (NEGATIVE); BARBITURATES, URINE NEGATIVE (NEGATIVE); BENZODIAZEPINE, URINE NEGATIVE (NEGATIVE); BUPRENORPHINE, URINE NEGATIVE (NEGATIVE); CANNABINOID, URINE NEGATIVE (NEGATIVE); COCAINE, URINE NEGATIVE (NEGATIVE); ECSTASY, URINE NEGATIVE (NEGATIVE); FENTANYL, URINE NEGATIVE (NEGATIVE); METHADONE, URINE NEGATIVE (NEGATIVE); OPIATES, URINE NEGATIVE (NEGATIVE); OXYCODONE, URINE NEGATIVE (NEGATIVE); PHENCYCLIDINE, URINE NEGATIVE (NEGATIVE)
[2024-05-03 03:59] LABS: BASOPHILS 4.9 % (0-2); EOSINOPHILS 2.3 % (0-6); HEMATOCRIT 31.9 % (35.0-50.0); LYMPHOCYTES 30.8 % (24-44); MCH 29.3 (27-36); MCHC 34.3 g/dl (30-36); MCV 85.4 fl (81-99); MONOCYTES 6.7 % (0-12); NEUTROPHILS 55.3 % (39-80); PLATELET COUNT 363 K/uL (140-440); RBC 3.74 M/ul (4.3-5.7); RDW 12.8 (10.5-15.0)
[2024-05-03 04:01] LABS: MAGNESIUM 1.7 mg/dL (1.8-2.4); PHOSPHORUS, INORGANIC 3.9 mg/dL (2.5-4.9)
[2024-05-03 04:11] LABS: ACETAMINOPHEN 0 ug/mL (10-30); ALBUMIN 4.1 g/dL (3.4-5.0); ALBUMIN/GLOBULIN RATIO 0.98 (1.1-2.4); ALCOHOL, MEDICAL 146 ng/dL (<3); ALKALINE PHOSPHATASE 62 U/L (46-116); ALT (SGPT) 27 U/L (14-59); AST (SGOT) 22 U/L (15-37); BILIRUBIN, TOTAL 0.3 ng/dL (0.2-1.0); BUN/CREATININE RATIO 13.38 (6.0-28.6); CALCIUM 9.3 mg/dL (8.5-10.1); CARBON DIOXIDE 19 mmol/L (21-32); CHLORIDE 84 mmol/L (98-107); CREATININE, SERUM 1.27 mg/dL (0.55-1.02); GLOMERULAR FILTRATION RATE,EST 52 mL/min (>60); PROTEIN, TOTAL 8.3 g/dL (6.4-8.2); SALICYLATE 2.3 mg/dL (2.8-20.0); UREA NITROGEN 17 mg/dL (7-18)
[2024-05-03] MEDS ORDERED: SODIUM CHLORIDE 0.9% 1,000 ML IV PRN (04:15)
[2024-05-03] MEDS ORDERED: ondansetron HCL 4 MG/2 ML VIAL IV ONE (04:15)
[2024-05-03] MEDS ORDERED: METOPROLOL TARTRATE 50 MG TAB PO ONE (06:45)
[2024-05-03 07:02] LABS: ANION GAP 19.2 (7-21); BUN/CREATININE RATIO 15.38 (6.0-28.6); CALCIUM 8.2 mg/dL (8.5-10.1); CREATININE, SERUM 1.04 mg/dL (0.55-1.02); POTASSIUM 4.2 mmol/L (3.5-5.1)
[2024-05-03 07:27] VITALS: BP 129/92
--- NOTE | 2024-05-04 09:01 | EKG ---
[facility] [address] [facility] [place] [address] Signed Sinus tachycardia with short OR Cannot rule out Inferior infarct , age undetermined Abnormal ECG When compared with ECG of 12-DEC-2023 13:19, OR interval has decreased Vent. rate has increased BY 52 BPM T wave inversion now evident in Inferior leads Confirmed by John Jones MD ([id number]) on 05/04/2024 9:01:06 AM Electronically Signed By: JOHN JONES 05/04/24 0901 PATIENT NAME: JAQUELIN BUCKLEY CHLOÉ Electrocardiogram DATE OF : 79 PHYSICIAN: JOHN JONES REPORT #: [id number] REPORT IS CONFIDENTIAL AND NOT TO BE RELEASED WITHOUT AUTHORIZATION
== END 2024-05-03 07:36 | disposition home or self-care (01) ==
LOC: ED 02:56
PROVIDERS: Internal Medicine
DX: F10.129 Alcohol abuse with intoxication, unspecified (principal); E86.0 Dehydration; E87.1 Hypo-osmolality and hyponatremia; I10 Essential (primary) hypertension; Z79.899 Other long term (current) drug therapy
CPT/HCPCS: 36415; 71045; 72125; 72192; 73110; 73502; 80048; 80053; 80307; 81003; 83735; 84100; 84443; 84703; 85025; 93005; 93010; 96365; 96366; 96375; 99285-25; G0480; J1885; J2060; J2405; J3411; J7030

== ENCOUNTER 2024-05-08 18:49 | Emergency (ER) | payer BC ==
[~2024-05-08] VITALS: Ht 152.4 cm; Wt 79.7 kg
[2024-05-08] MEDS ORDERED: ondansetron HCL 4 MG/2 ML VIAL IV ONE (20:00)
[2024-05-08] MEDS ORDERED: diphenhydrAMINE HCL 50 MG/ML VIAL ONE (20:01)
[2024-05-08] MEDS ORDERED: HALOPERIDOL LACTATE 5 MG/ML VIAL ONE (20:01)
[2024-05-08] MEDS ORDERED: LORazepam 2 MG/ML VIAL ONE (20:01)
[2024-05-08] MEDS ORDERED: diphenhydrAMINE HCL 50 MG/ML VIAL IM ONE (20:15)
[2024-05-08] MEDS ORDERED: LORazepam 2 MG/ML VIAL IM ONE (20:15)
[2024-05-08] MEDS ORDERED: HALOPERIDOL LACTATE 5 MG/ML VIAL IM ONE (20:15)
[2024-05-08 20:45] LABS: HEMATOCRIT 32.1 % (35.0-50.0); HEMOGLOBIN 11.1 g/dL (12.0-18.0); MCH 30.3 (27-36); MCHC 34.5 g/dl (30-36); MCV 87.6 fl (81-99); PLATELET COUNT 424 K/uL (140-440); RBC 3.67 M/ul (4.3-5.7); RDW 13.2 (10.5-15.0)
[2024-05-08] MEDS ORDERED: ETOMIDATE 40 MG/20 ML VIAL IV ONE (20:45)
[2024-05-08] MEDS ORDERED: SODIUM CHLORIDE 0.9% 1,000 ML IV ONE (21:00)
[2024-05-08 21:03] LABS: ACETAMINOPHEN 0 ug/mL (10-30); ALBUMIN 4.1 g/dL (3.4-5.0); ALBUMIN/GLOBULIN RATIO 0.93 (1.1-2.4); ALCOHOL, MEDICAL 192 ng/dL (<3); ALKALINE PHOSPHATASE 71 U/L (46-116); ALT (SGPT) 35 U/L (14-59); ANION GAP 22.7 (7-21); AST (SGOT) 29 U/L (15-37); BILIRUBIN, TOTAL 0.4 ng/dL (0.2-1.0); BUN/CREATININE RATIO 16.31 (6.0-28.6); CALCIUM 8.8 mg/dL (8.5-10.1); CARBON DIOXIDE 16 mmol/L (21-32); CHLORIDE 89 mmol/L (98-107); CREATININE, SERUM 1.41 mg/dL (0.55-1.02); GLOMERULAR FILTRATION RATE,EST 46 mL/min (>60); POTASSIUM 3.7 mmol/L (3.5-5.1); PROTEIN, TOTAL 8.5 g/dL (6.4-8.2); SALICYLATE 2.6 mg/dL (2.8-20.0); TSH, 3RD GENERATION 1.794 uIU/mL (0.358-3.740); UREA NITROGEN 23 mg/dL (7-18)
[2024-05-08 21:13] LABS: EOSINOPHILS, MANUAL DIFF 3; LYMPHOCYTES, MANUAL DIFF 44; MONOCYTES, MANUAL DIFF 3; NEUTROPHILS, MANUAL DIFF 50
[2024-05-08 22:10] LABS: AMPHETAMINES, URINE NEGATIVE (NEGATIVE); BARBITURATES, URINE NEGATIVE (NEGATIVE); BENZODIAZEPINE, URINE NEGATIVE (NEGATIVE); BUPRENORPHINE, URINE NEGATIVE (NEGATIVE); CANNABINOID, URINE NEGATIVE (NEGATIVE); COCAINE, URINE NEGATIVE (NEGATIVE); ECSTASY, URINE NEGATIVE (NEGATIVE); FENTANYL, URINE NEGATIVE (NEGATIVE); METHADONE, URINE NEGATIVE (NEGATIVE); OPIATES, URINE NEGATIVE (NEGATIVE); OXYCODONE, URINE NEGATIVE (NEGATIVE); PHENCYCLIDINE, URINE NEGATIVE (NEGATIVE)
[2024-05-09 05:44] LABS: BILIRUBIN, URINE NEGATIVE (negative); BLOOD/HGB, URINE NEGATIVE (Negative); KETONE, URINE NEGATIVE (Negative); LEUK ESTERASE, URINE NEGATIVE (negative); NITRITE, URINE NEGATIVE (negative); PH, URINE 6.5 (5-7)
[2024-05-09 06:15] VITALS: BP 121/87
== END 2024-05-09 06:17 | disposition home or self-care (01) ==
LOC: ED 18:49
PROVIDERS: Family Medicine
DX: F10.10 Alcohol abuse, uncomplicated (principal); I10 Essential (primary) hypertension; G43.909 Migraine, unspecified, not intractable, without status migrainosus; Z79.899 Other long term (current) drug therapy
CPT/HCPCS: 36415; 51702; 80053; 80307; 81003; 84443; 84703; 85025; 99283-25; G0480; J1200; J1630; J2060; J2405; J7030

== ENCOUNTER 2024-09-17 13:49 | Emergency (ER) | payer BC ==
[~2024-09-17] VITALS: Ht 152.4 cm; Wt 79.8 kg
[2024-09-17] MEDS ORDERED: SODIUM CHLORIDE 0.9% 1,000 ML IV ONE (14:00)
[2024-09-17] MEDS ORDERED: droPERidol 5 MG/2 ML VIAL IV ONE (14:00)
[2024-09-17 14:09] LABS: EOSINOPHILS 1.1 % (0-6); HEMATOCRIT 34.8 % (35.0-50.0); HEMOGLOBIN 11.8 g/dL (12.0-18.0); MCH 29.4 (27-36); MCHC 33.9 g/dl (30-36); MCV 86.8 fl (81-99); MONOCYTES 5.3 % (0-12); NEUTROPHILS 61.6 % (39-80); PLATELET COUNT 436 K/uL (140-440); RBC 4.01 M/ul (4.3-5.7); RDW 12.8 (10.5-15.0)
[2024-09-17 14:27] LABS: ALBUMIN 4.2 g/dL (3.4-5.0); ALBUMIN/GLOBULIN RATIO 0.98 (1.1-2.4); ANION GAP 21.7 (7-21); BILIRUBIN, TOTAL 0.2 ng/dL (0.2-1.0); CALCIUM 9.8 mg/dL (8.5-10.1); POTASSIUM 3.7 mmol/L (3.5-5.1); PROTEIN, TOTAL 8.5 g/dL (6.4-8.2)
[2024-09-17 16:36] VITALS: BP 106/61
== END 2024-09-17 16:37 | disposition home or self-care (01) ==
LOC: ED 13:49
PROVIDERS: Emergency Medicine
DX: F10.129 Alcohol abuse with intoxication, unspecified (principal); Y90.7 Blood alcohol level of 200-239 mg/100 ml; R21 Rash and other nonspecific skin eruption; I10 Essential (primary) hypertension; G43.909 Migraine, unspecified, not intractable, without status migrainosus; Z79.899 Other long term (current) drug therapy
CPT/HCPCS: 36415; 80053; 83690; 84703; 85025; 96374; 99284-25; G0480; J1790; J7030

== ENCOUNTER 2025-03-04 12:24 | Emergency (ER) | payer BC ==
[~2025-03-04] VITALS: Ht 152.4 cm; Wt 74.6 kg
[2025-03-04 12:45] LABS: BASOPHILS 1.2 % (0.1-1.2); EOSINOPHILS 4.3 % (0.7-5.8); LYMPHOCYTES 34.3 % (19.3-51.7); MCH 27.8 PG (25.6-32.2); MCHC 32.9 g/dL (32.2-35.5); MCV 84.4 fL (79.4-94.8); MONOCYTES 5.2 % (4.7-12.5); NEUTROPHILS 52.8 % (34.0-71.1); RBC 4.43 M/uL (3.93-5.22)
[2025-03-04 13:06] LABS: GLOMERULAR FILTRATION RATE,EST 33.0 mL/min (>60); PROTEIN, TOTAL 8.1 g/dL (6.4-8.2); UREA NITROGEN 31.0 mg/dL (7-18)
[2025-03-04 13:30] LABS: ALT (SGPT) 29.0 U/L (14-59)
[2025-03-04] MEDS ORDERED: LORazepam 2 MG/ML VIAL IV ONE (13:30)
[2025-03-04] MEDS ORDERED: SODIUM CHLORIDE 0.9% 1,000 ML IV ONE (13:30)
[2025-03-04 13:51] LABS: AST (SGOT) 16.0 U/L (15-37)
[2025-03-04] MEDS ORDERED: DOXYCYCLINE HY100 MG PO (15:08)
[2025-03-04] MEDS ORDERED: DOXYCYCLINE HYCLATE 100 MG CAP PO ONE (15:15)
[2025-03-04 15:32] VITALS: BP 122/90
--- NOTE | 2025-03-06 16:00 | EKG ---
[facility] [address] [facility] [place] [address] Signed Normal sinus rhythm Possible Inferior infarct (cited on or before 15-AUG-2023) Abnormal ECG When compared with ECG of 03-MAY-2024 03:11, Vent. rate has decreased BY 46 BPM Confirmed by Shreyas López MD ([id number]) on 03/06/2025 4:00:20 PM Electronically Signed By: SHREYAS LÓPEZ MD 03/06/25 1600 PATIENT NAME: JAQUELIN BUCKLEY CHLOÉ Electrocardiogram DATE OF : 79 PHYSICIAN: SHREYAS LÓPEZ MD REPORT #: [id number] REPORT IS CONFIDENTIAL AND NOT TO BE RELEASED WITHOUT AUTHORIZATION
== END 2025-03-04 15:34 | disposition home or self-care (01) ==
LOC: ED 12:24
PROVIDERS: Emergency Medicine
DX: J40 Bronchitis, not specified as acute or chronic (principal); F41.9 Anxiety disorder, unspecified; I10 Essential (primary) hypertension; Z79.899 Other long term (current) drug therapy
CPT/HCPCS: 36415; 71045; 80053; 83735; 84484; 85025; 93005; 93010; 96374; 96375; 99285-25; J2060; J2405; J7030